=== PATIENT | female | born 1960 ===

== ENCOUNTER 2021-02-06 21:52 | Inpatient (IN) | payer MEDICARE, BC, SELFPAY ==
[2021-02-06 22:06] VITALS: BMI 22.0
[2021-02-06 22:52] VITALS: BP 134/84; PULSE 74; RESP 18; TEMP 37.2; O2SAT 96
[2021-02-06 23:54] VITALS: BP 139/75; PULSE 62; RESP 16; TEMP 36.3; O2SAT 96; BMI 18.9
--- NOTE | 2021-02-07 | ECG_ITS ---
Test Reason : new admit Blood Pressure : / mmHG Vent. Rate : 115 BPM Atrial Rate : 115 BPM P-R Int : 118 ms QRS Dur : 118 ms QT Int : 362 ms P-R-T Axes : 099 -40 154 degrees QTc Int : 500 ms Sinus tachycardia with Premature supraventricular complexes in a pattern of bigeminy Left axis deviation Pulmonary disease pattern Left ventricular hypertrophy with QRS widening and repolarization abnormality ( R in aVL , [place] product , Romhilt-Andrews ) Intra-ventricular conduction delay Abnormal ECG No previous ECGs available Referred By: Kimberly Casas Electronically Signed By:JESÚS ORELLANA MD
[2021-02-07 00:13] LABS: Glucose, Whole Blood 250 mg/dL (60-115)
--- NOTE | 2021-02-07 01:08 | PC.ADMIT ---
Pt is a 60 years old female transferred from [facility] with concerns of persecutory delusions, not eating or sleeping, and noncompliance with her medications. Diagnosis: Unspecified bipolar disorder. Pt is Covid negative, Tox negative. Pt denies HI/SI. reported having bowel discomfort earlier today. Presents slightly disoriented, flat affect with irritable mood. Speech is regular but response is delayed. Pt has a pacemaker placed in June 2019, DM2 with a admission POC:250.
[2021-02-07 06:00] VITALS: BP 131/76; PULSE 59; RESP 16; TEMP 36.4; O2SAT 97
[2021-02-07 06:46] LABS: Glucose, Whole Blood 135 mg/dL (60-115)
[2021-02-07 08:28] LABS: MANUAL DIFF FLAG NO
[2021-02-07 08:37] LABS: Basophils Percent Auto 0.3 % (0-2); Eosinophils Percent Auto 0.2 % (0-4); Hematocrit 32.6 % (37-47); Hemoglobin 11.4 g/dl (12.0-16.0); Imm Gran Abs Auto 0.02 X10*3/uL (0.00-0.03); Imm Gran Pct Auto 0.3 % (0.0-0.4); Lymphocytes Percent Auto 14.9 % (20-40); Mean Corpuscular Hemoglobin 31.1 pg (27.0-33.0); Mean Corpuscular Volume 88.8 fL (80-98); Mean Platelet Volume 10.2 fL (9.4-12.3); Monocytes Absolute Auto 0.5 X10*3/uL (0.1-1.2); Neutrophils Absolute Auto 5.1 X10*3/uL (2.0-8.3); Neutrophils Percent Auto 77.3 % (45-73); Platelet Count 203 X10*3/uL (160-400); Red Blood Count 3.67 X10*6/uL (4.20-5.50); Red Cell Distribution Width 11.8 % (11.0-16.0); White Blood Count 6.6 X10*3/uL (4.8-10.8)
[2021-02-07 08:54] LABS: Estimated Average Glucose 117 mg/dL; Hemoglobin A1c % 5.7 %
[2021-02-07 09:10] LABS: Alanine Aminotransferase 28 U/L (0-31); Albumin Level 4.1 g/dL (3.5-5.0); Alkaline Phosphatase 88 U/L (39-117); Anion Gap 20 (12-20); Aspartate Amino Transferase 44 U/L (5-31); Bilirubin Total 0.3 mg/dL (0.0-1.0); Blood Urea Nitrogen 108 mg/dL (9-16); Calcium 9.6 mg/dL (8.4-10.2); Carbon Dioxide 21 mmol/L (22-29); Chloride 104 mmol/L (96-108); Creatinine Clr Calc Pharmacy 13.3; Estimated Glomerular Filt Rate 13; Glucose Fasting 158 mg/dL (60-99); Potassium 4.6 mmol/L (3.3-5.1); Sodium 140 mmol/L (135-145); Total Protein 6.9 g/dL (6.5-8.0)
--- NOTE | 2021-02-07 09:18 | PC.NURSE ---
Critical value reported from lab of BUN 108, Dr Wili Betts aware via [employer]
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
[2021-02-07 17:25] VITALS: BP 145/98; PULSE 83; RESP 16; TEMP 36.9; O2SAT 98
[2021-02-07] MEDS: Sodium Chloride 0.45 % 1,000 ML 50 ML IVCONT (17:30)
[2021-02-07] MEDS: Milk of Magnesia 30 ML ORAL.SUSP PO (20:48)
[2021-02-08 06:00] VITALS: BP 141/80; PULSE 72; RESP 16; TEMP 35.9; O2SAT 98
[2021-02-08 06:40] LABS: Glucose, Whole Blood 150 mg/dL (60-115)
[2021-02-08 08:55] LABS: Anion Gap 13 (12-20); Blood Urea Nitrogen 92 mg/dL (9-16); Calcium 9.1 mg/dL (8.4-10.2); Carbon Dioxide 25 mmol/L (22-29); Chloride 103 mmol/L (96-108); Creatinine Clr Calc Pharmacy 15.5; Estimated Glomerular Filt Rate 15; Glucose Random 191 mg/dL (60-115); Potassium 3.9 mmol/L (3.3-5.1); Sodium 137 mmol/L (135-145)
[2021-02-08] MEDS: risperiDONE 1 MG TABLET PO (09:30)
--- NOTE | 2021-02-08 09:54 | P.PNPSI_ITS ---
Subjective Subjective Date of Service: 02/08/21 Reason For Visit: Depressed mood Interim History: pt seen on 02/08 pt remains with speech latency, sitting on edge of bed, not moving or talking much, only answering yes/no to questions. Pt agreed that it's hard to speak due to feeling confused in her mind and the distractions of auditory hallucinations. Agrees to titration of risperdal. Mental Status Exam Mental Status Exam Narrative: Pt is alert and oriented to self, place, situation; behavior is cooperative but disorganized; patient dressed in hospital gown; mood is described as depressed;? and affect flat; eye contact minimal; Speech with much latency; normal volume but monotone;? significant psychomotor retardation present; thought process is slowed and somewhat disorganized but can be goal oriented; Thought content vacuous; no SI/HI; is on tx; AH that are distracting; denies any SI/HI. Significant thought blocking and internal preoccupation; Patients insight and judgment impaired. Diagnostics Vital Signs (24Hr): Vital Signs - 24 hr 02/07/21 17:25 02/08/21 06:00 Temperature 98.5 F 96.7 F L Pulse Rate 83 72 Respiratory Rate 16 16 Blood Pressure 145/98 H 141/80 H Pulse Oximetry 98 98 Body Mass Index 18.9 Labs Results: 02/07/21 07:57 02/08/21 07:58 Labs: Laboratory Results - last 48 hr 02/07/21 02/07/21 02/07/21 00:06 06:40 07:57 WBC 6.6 RBC 3.67 L Hgb 11.4 L Hct 32.6 L MCV 88.8 MCH 31.1 MCHC 35.0 RDW 11.8 Plt Count 203 MPV 10.2 Immature Gran % (Auto) 0.3 Neut % (Auto) 77.3 H Lymph % (Auto) 14.9 L [place] % (Auto) 7.0 Eos % (Auto) 0.2 Baso % (Auto) 0.3 Lymph # (Auto) 1.0 L [place] # (Auto) 0.5 Eos # (Auto) 0.0 Baso # (Auto) 0.0 Abs Immat Gran (auto) 0.02 Absolute Neuts (auto) 5.1 Absolute Nucleated RBC 0.000 Nucleated RBC % (auto) 0.0 Sodium Potassium Chloride Carbon Dioxide Anion Gap BUN Creatinine Estim Creat Clear Calc Estimated GFR POC Glucose 250 H 135 H Random Glucose Fasting Glucose Estimat Average Glucose Hemoglobin A1c % Calcium Total Bilirubin AST ALT Alkaline Phosphatase Total Protein Albumin 02/07/21 02/07/21 02/08/21 07:57 07:57 06:35 WBC RBC Hgb Hct MCV MCH MCHC RDW Plt Count MPV Immature Gran % (Auto) Neut % (Auto) Lymph % (Auto) [place] % (Auto) Eos % (Auto) Baso % (Auto) Lymph # (Auto) [place] # (Auto) Eos # (Auto) Baso # (Auto) Abs Immat Gran (auto) Absolute Neuts (auto) Absolute Nucleated RBC Nucleated RBC % (auto) Sodium 140 Potassium 4.6 Chloride 104 Carbon Dioxide 21 L Anion Gap 20 BUN 108 H* Creatinine 3.66 H Estim Creat Clear Calc 13.3 Estimated GFR 13 POC Glucose 150 H Random Glucose Fasting Glucose 158 H Estimat Average Glucose 117 Hemoglobin A1c % 5.7 Calcium 9.6 Total Bilirubin 0.3 AST 44 H ALT 28 Alkaline Phosphatase 88 Total Protein 6.9 Albumin 4.1 02/08/21 07:58 WBC RBC Hgb Hct MCV MCH MCHC RDW Plt Count MPV Immature Gran % (Auto) Neut % (Auto) Lymph % (Auto) [place] % (Auto) Eos % (Auto) Baso % (Auto) Lymph # (Auto) [place] # (Auto) Eos # (Auto) Baso # (Auto) Abs Immat Gran (auto) Absolute Neuts (auto) Absolute Nucleated RBC Nucleated RBC % (auto) Sodium 137 Potassium 3.9 Chloride 103 Carbon Dioxide 25 Anion Gap 13 BUN 92 H* Creatinine 3.14 H Estim Creat Clear Calc 15.5 Estimated GFR 15 POC Glucose Random Glucose 191 H Fasting Glucose Estimat Average Glucose Hemoglobin A1c % Calcium 9.1 Total Bilirubin AST ALT Alkaline Phosphatase Total Protein Albumin Medications Medications Current Medications Acetaminophen (Acetaminophen 325 Mg Tablet) 650 mg PO Q6H PRN PRN Reason: Headache/Pain Mild Scale (1-3) Acetaminophen (Acetaminophen 325 Mg Tablet) 650 mg PO Q6H PRN PRN Reason: Headache/Pain Mild Scale (1-3) Al Hydroxide/Mg Hydroxide (Magnesium Hydrox/Alum Hydrox 30 Ml Oral.Susp) 30 ml PO Q6H PRN PRN Reason: Heartburn/Nausea Al Hydroxide/Mg Hydroxide (Magnesium Hydrox/Alum Hydrox 30 Ml Oral.Susp) 30 ml PO Q6H PRN PRN Reason: Heartburn/Nausea Hydroxyzine HCl (Hydroxyzine Hcl 25 Mg Tablet) 25 mg PO BEDTIME PRN PRN Reason: Anxiety Sodium Chloride () 1,000 mls @ 50 mls/hr IVCONT .Q20H [facility] Last Admin: 02/07/21 17:30 Dose: 50 mls/hr Documented by: Lorazepam (Lorazepam 1 Mg Tablet) 1 mg PO Q6H PRN PRN Reason: Anxiety Magnesium Hydroxide (Milk Of Magnesia 30 Ml Oral.Susp) 30 ml PO DAILY PRN PRN Reason: Constipation Last Admin: 02/07/21 20:48 Dose: 30 ml Documented by: Magnesium Hydroxide (Milk Of Magnesia 30 Ml Oral.Susp) 30 ml PO DAILY PRN PRN Reason: Constipation Risperidone (Risperidone 1 Mg Tablet) 1 mg PO BID [facility] Last Admin: 02/08/21 09:30 Dose: 1 mg Documented by: Trazodone HCl (Trazodone Hcl 50 Mg Tablet) 50 mg PO BEDTIME PRN PRN Reason: Insomnia Trazodone HCl (Trazodone Hcl 50 Mg Tablet) 50 mg PO BEDTIME PRN PRN Reason: Insomnia Allergies Allergies Allergy/AdvReac Type Severity Reaction Status Date / Time No Known Allergies Allergy Unverified 02/06/21 22:26 Assessment & Plan Assessment & Plan (1) Schizoaffective disorder, depressive type: Status: Acute Code(s): F25.1 - Schizoaffective disorder, depressive type (2) HLD (hyperlipidemia): Status: Acute Code(s): E78.5 - Hyperlipidemia, unspecified (3) Acute kidney injury superimposed on CKD: Status: Acute Code(s): N17.9 - Acute kidney failure, unspecified; N18.9 - Chronic kidney disease, unspecified (4) CKD stage 4 due to type 1 diabetes mellitus: Status: Acute Code(s): E10.22 - Type 1 diabetes mellitus with diabetic chronic kidney disease; N18.4 - Chronic kidney disease, stage 4 (severe) (5) Hypothyroidism: Status: Acute Code(s): E03.9 - Hypothyroidism, unspecified Assessment and Plan: IMPRESSION: pt is a poor historian pt is a 60 yo female with hx of bipolar, CKD4 preparing for dialysis who pre sents for worsening depression, disorganized behavior and poor attention to ADLS in face of going off medication. -pt with psychomotor retardation and disorganized speech and behavior, dehydrated from poor PO intake and needing IV fluids to help treat Acute on CKD4; -QT mildly prolonged -pt looks to be struggling with negative symptoms of psychosis; will tittrate rispderdal; however, will also keep catatonia in mind and careful monitor effect of antipsychotic. PLAN: CV IV fluids for acute on CKD4 Nephrology consulted; starting IV fluids Dr. 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 Kvng Garcia: -Levothyrozine 0.05mg 1 tab QD- last filled on 01/16 for 90 days -Carbidolol 6.25mg BID with meals- last filled on 01/16 for 90 days -Amlodipine Besylate 10mg QD- last filled 01/16 for 90 days -Glipizide 10mg QD- last filled 11/17 for [address] Isidra Santana: -Trazodone 50mg QHS- last filled on 01/10 for 90 days -Risperidone 4mg, ? tab QAM, 1 tab QHS- last filled 12/26/20 for 30 days -Oxcarbazepine 300mg 1 tab QAM; 2 tabs QHS- September 20 for 90 day supply I spent minutes with the patient and/or on the patient floor today, greater than?50% of which was spent counseling/coordinating care. Reason for contiued inpatient stay Substantial Risk for: inability to function
--- NOTE | 2021-02-08 15:45 | CONS_ITS ---
DATE OF SERVICE: 02/08/2021 REASON FOR CONSULTATION: I was called to see this patient to assist in the management of renal failure. HISTORY OF PRESENT ILLNESS: To summarize, melly is a 60-year-old woman with a history of bipolar disorder. She has advanced chronic kidney disease with a baseline creatinine around 3 mg/dL. She follows with my partner, Dr. Fuller in the outpatient setting. She comes to the psychiatric floor and was found to have significantly elevated BUN and creatinine of 108 and 3.66. This consult was requested for the management of the renal failure. She was seen by the medical team and started on half-normal saline at 50 mL/hour. There has been minimal improvement in the BUN and creatinine as of this morning. Melly has a history of longstanding diabetes mellitus, hypertension, and she does have some proteinuria and she probably has underlying diabetic nephropathy. In the past, the serological workup was negative. She was also on lithium in the past and there is a question of lithium nephropathy, although I do not have any urine studies to support this at this point. PAST MEDICAL HISTORY: Ongoing medical problems include history of hypertension, diabetes mellitus, bipolar disorder, chronic kidney disease stage 4, anemia Epogen in the outpatient setting and mild secondary hyperparathyroidism. ALLERGIES: NO KNOWN DRUG ALLERGIES HAVE BEEN DOCUMENTED. MEDICATIONS: Medication at the time of admission included Tylenol, hydroxyzine, carvedilol 6.25 b.i.d., amlodipine 10 mg, vitamin D 3000 units a day, glipizide 10 mg daily, levothyroxine, [place]-3, Trileptal, risperidone, and trazodone. REVIEW OF SYSTEMS: Obtained from the chart and partially from the patient. The patient is not a good historian. She denies any headache, nausea, or vomiting. No abdominal pain, diarrhea, constipation. No polyuria or polydipsia. No edema. No fever. All other systems were reviewed from the chart. PHYSICAL EXAMINATION: GENERAL: Melly is a 60-year-old woman. She has a flat affect, comfortable, not in any distress. NECK: Supple. No JVD. HEENT: Mucosa is dry. LUNGS: Air entry equal. No rales. HEART: S1, S2 heard. No gallop or rub. ABDOMEN: Soft, nontender. EXTREMITIES: No edema. No rash. No clubbing. VITAL SIGNS: Blood pressure was documented as 140/80, pulse 72, she is afebrile. LABORATORY DATA: On 02/07/2021, hemoglobin 11.4, platelets 203. BUN is 108, creatinine 3.66, potassium 4.6. As of 02/08, BUN and creatinine have decreased to 92 and 3.14, potassium of 3.9. Urine studies are not available. IMPRESSION: 60-year-old woman with stage 5 chronic kidney disease, superimposed on acute kidney injury. 1. Acute kidney injury is most likely related to hypoperfusion from volume depletion. There is no evidence of any obstruction and no active glomerulonephritis. 2. She has underlying chronic kidney disease stage 5, most likely due to diabetic nephropathy versus lithium nephropathy. Baseline BUN creatinine around 80 and 3.0 mg/dL. RECOMMENDATIONS: My recommendation will be to cautiously hydrate her for the next 24 to 48 hours. Keep intake more than the output. Avoid nephrotoxic agents and avoid hypotension. At present, there is no overt signs or symptoms of uremia and there is no absolute indication for dialysis yet. We will follow the renal function over the next several days and monitor her progress. She has mild anemia. There is no indication for Epogen at this time. We will continue to monitor that as well. We will follow closely with the team. Howard Galvan MD BPA/MODL / [id number]
[2021-02-08] MEDS: risperiDONE 2 MG TABLET PO (22:20)
[2021-02-08 22:24] VITALS: BP 133/74; PULSE 108; RESP 16; TEMP 36.9; O2SAT 97
[2021-02-08] MEDS: 0.9 % Sodium Chloride 1,000 ML 50 ML IVCONT (23:02)
[2021-02-08] MEDS: traZODone HCL 50 MG TABLET PO (23:04)
[2021-02-09 06:00] VITALS: BP 126/61; PULSE 54; RESP 18; TEMP 36.8; O2SAT 97
--- NOTE | 2021-02-09 08:00 | ECG_ITS ---
Test Reason : qtc check Blood Pressure : / mmHG Vent. Rate : 094 BPM Atrial Rate : 308 BPM P-R Int : 000 ms QRS Dur : 110 ms QT Int : 384 ms P-R-T Axes : 270 -25 118 degrees QTc Int : 480 ms Atrial flutter with variable A-V block Incomplete left bundle branch block Left ventricular hypertrophy with repolarization abnormality ( R in aVL , J Luis product ) Prolonged QT Abnormal ECG When compared with ECG of 07-FEB-2021 11:02, Atrial flutter has replaced Sinus rhythm Referred By: Wili Betts Electronically Signed By:JESÚS ORELLANA MD
--- NOTE | 2021-02-09 09:11 | PM.PNNEP ---
Subjective Subjective Date of Service: 02/26/21 Interval history: Chart reviewed BP noted No labs today D/w Physical Exam Vital Signs: Vital Signs: Last Vital Signs Temp 98.3 F 02/09/21 06:00 Pulse 54 02/09/21 06:00 Resp 18 02/09/21 06:00 BP 126/61 02/09/21 06:00 Pulse Ox 97 02/09/21 06:00 Body Mass Index 18.9 Objective Data Labs CBC & Chem 7: 02/07/21 07:57 02/08/21 07:58 Procedures Date of Service Date of Service: 02/09/21 Assessment & Plan Assessment and plan (1) Acute kidney injury superimposed on CKD: Status: Acute Assessment and Plan: SUZIE on CKD Cr is trending down Check Cr tomorrow Out patient meds as per my office record: Coreg 6.26 BID Amlodipine 10 mg QD Vit D 1000 U QD Glipizide 10 mg QD LEvothyroxine 50 mcg QD Oxcarbazene/Risperodone/Trazadone BP seems acceptable. Hold Coreg /Amlodipine today and watch BP will address Levothyroxine adn Glipizide Time Spent With Patient Time: Total time spent is greater than 50% in coordination of care (as documented) at patient's floor/unit and/or counseling patient: Time with patient: less than 15 minutes
[2021-02-09] MEDS: risperiDONE 1 MG TABLET PO (10:04)
--- NOTE | 2021-02-09 13:45 | P.PNPSI_ITS ---
Subjective Subjective Date of Service: 02/09/21 Reason For Visit: Depressed mood Interim History: pt seen on 02/09 pt brighter affect today, smiling at times, with less speech latency and talking more spontaneously. She says she feels more like herself today; denies AH and feels less confused. Agrees to increasing Rispderdal says came to hospital since she stopped taking her meds; she reports someone was coming into her house, removed her meds and replaced with fakes so she stopped taking. Mental Status Exam Mental Status Exam Narrative: Pt is alert and oriented to self, place, situation; behavior is cooperative, more organized; patient dressed casual cloths, appropriate; mood is a little better; ? and affect brighter; eye contact adequate; Speech still latent but less so; normal volume, still monotone;? still with psychomotor retardation but less; thought process is slowed but more disorganized and goal oriented; Thought content vacuous; no SI/HI; is on tx; still with delusional content; denies any SI/HI. Still with thought blocking and internal preoccupation but much less so; Patients insight and judgment impaired but improving. Diagnostics Vital Signs (24Hr): Vital Signs - 24 hr 02/08/21 22:24 02/09/21 06:00 Temperature 98.5 F 98.3 F Pulse Rate 108 H 54 Respiratory Rate 16 18 Blood Pressure 133/74 126/61 Pulse Oximetry 97 97 Body Mass Index 18.9 Labs Results: 02/07/21 07:57 02/08/21 07:58 Labs: Laboratory Results - last 48 hr 02/08/21 02/08/21 06:35 07:58 Sodium 137 Potassium 3.9 Chloride 103 Carbon Dioxide 25 Anion Gap 13 BUN 92 H* Creatinine 3.14 H Estim Creat Clear Calc 15.5 Estimated GFR 15 POC Glucose 150 H Random Glucose 191 H Calcium 9.1 Medications Medications Current Medications Acetaminophen (Acetaminophen 325 Mg Tablet) 650 mg PO Q6H PRN PRN Reason: Headache/Pain Mild Scale (1-3) Al Hydroxide/Mg Hydroxide (Magnesium Hydrox/Alum Hydrox 30 Ml Oral.Susp) 30 ml PO Q6H PRN PRN Reason: Heartburn/Nausea Sodium Chloride (Ns) 1,000 mls @ 50 mls/hr IVCONT .Q20H [facility] Stop: 02/09/21 21:00 Last Admin: 02/08/21 23:02 Dose: 50 mls/hr Documented by: Lorazepam (Lorazepam 1 Mg Tablet) 1 mg PO Q6H PRN PRN Reason: Anxiety Magnesium Hydroxide (Milk Of Magnesia 30 Ml Oral.Susp) 30 ml PO DAILY PRN PRN Reason: Constipation Last Admin: 02/07/21 20:48 Dose: 30 ml Documented by: Risperidone (Risperidone 1 Mg Tablet) 1 mg PO DAILY [facility] Last Admin: 02/09/21 10:04 Dose: 1 mg Documented by: Risperidone (Risperidone 2 Mg Tablet) 2 mg PO BEDTIME [facility] Last Admin: 02/08/21 22:20 Dose: 2 mg Documented by: Trazodone HCl (Trazodone Hcl 50 Mg Tablet) 50 mg PO BEDTIME PRN PRN Reason: Insomnia Last Admin: 02/08/21 23:04 Dose: 50 mg Documented by: Allergies Allergies Allergy/AdvReac Type Severity Reaction Status Date / Time No Known Allergies Allergy Unverified 02/06/21 22:26 Assessment & Plan Assessment & Plan (1) Schizoaffective disorder, depressive type: Status: Acute Code(s): F25.1 - Schizoaffective disorder, depressive type (2) HLD (hyperlipidemia): Status: Acute Code(s): E78.5 - Hyperlipidemia, unspecified (3) Acute kidney injury superimposed on CKD: Status: Acute Code(s): N17.9 - Acute kidney failure, unspecified; N18.9 - Chronic kidney disease, unspecified (4) CKD stage 4 due to type 1 diabetes mellitus: Status: Acute Code(s): E10.22 - Type 1 diabetes mellitus with diabetic chronic kidney disease; N18.4 - Chronic kidney disease, stage 4 (severe) (5) Hypothyroidism: Status: Acute Code(s): E03.9 - Hypothyroidism, unspecified Assessment and Plan: IMPRESSION: pt is a poor historian pt is a 60 yo female with hx of bipolar, CKD4 preparing for dialysis who presents for worsening depression, disorganized behavior and poor attention to ADLS in face of going off medication. -pt with psychomotor retardation and disorganized speech and behavior, dehydrated from poor PO intake and needing IV fluids to help treat Acute on CKD4; bUN/Cr returned to nearly baseline resolved with fluids -QT mildly prolonged at first; subsequent EKG shows returned to [facility] pt improving with titration of Risperdal; more spontaneous, organized speech; more organized behavior; AH resolved PLAN: CV increased Risperdal to 4mg at bed continue risperdal 1mg AM was on IV fluids for acute on CKD4 which resolved; Nephrology consulted agrees pt no longer needs IV; encourage PO fluids Dr. 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 Kvng Garcia: -Levothyrozine 0.05mg 1 tab QD- last filled on 01/16 for 90 days -Carbidolol 6.25mg BID with meals- last filled on 01/16 for 90 days -Amlodipine Besylate 10mg QD- last filled 01/16 for 90 days -Glipizide 10mg QD- last filled 11/17 for [address] Isidra Santana: -Trazodone 50mg QHS- last filled on 01/10 for 90 days -Risperidone 4mg, ? tab QAM, 1 tab QHS- last filled 12/26/20 for 30 days -Oxcarbazepine 300mg 1 tab QAM; 2 tabs QHS- September 20 for 90 day supply I spent minutes with the patient and/or on the patient floor today, greater than?50% of which was spent counseling/coordinating care. Reason for contiued inpatient stay Substantial Risk for: inability to function
[2021-02-09 18:00] VITALS: BP 115/74; PULSE 65; RESP 18; TEMP 36.1; O2SAT 98
[2021-02-09] MEDS: risperiDONE 2 MG TABLET 4 MG PO (22:39)
[2021-02-10 06:00] VITALS: BP 141/66; PULSE 77; RESP 16; TEMP 36.7; O2SAT 98
[2021-02-10 06:20] LABS: Glucose, Whole Blood 150 mg/dL (60-115)
[2021-02-10] MEDS: risperiDONE 1 MG TABLET PO (08:44)
[2021-02-10 17:13] VITALS: BP 143/92; PULSE 136; RESP 16; TEMP 37.1; O2SAT 98
[2021-02-10] MEDS: LORazepam 1 MG TABLET PO ×2 (17:59→21:28)
--- NOTE | 2021-02-10 20:08 | P.PNPSI_ITS ---
Subjective Subjective Date of Service: 02/10/21 Reason For Visit: Depressed mood Subjective Notes: Conditional Voluntary Medical Problems Affecting Mental Status: No Interim History: Thu was extremely guarded and disorganized. She tends to isolate in her room. Medication Compliance: Yes Side effects from medications: No Attending Groups: No Review of Systems Acute medical concerns: No Medical Review of Systems: unchanged Mental Status Exam Mental Status Exam Narrative: Pt is alert and oriented to self, place, situation; behavior is cooperative, more organized; patient dressed casual cloths, appropriate; mood is a little better; ? and affect brighter; eye contact adequate; Speech still la tent but less so; normal volume, still monotone;? still with psychomotor retardation but less; thought process is slowed but more disorganized and goal oriented; Thought content vacuous; no SI/HI; is on tx; still with delusional content; denies any SI/HI. Still with thought blocking and internal pre occupation but much less so; Patients insight and judgment impaired but improving. Diagnostics Vital Signs (24Hr): Vital Signs - 24 hr 02/10/21 06:00 02/10/21 17:13 Temperature 98.1 F 98.7 F Pulse Rate 77 136 H Respiratory Rate 16 16 Blood Pressure 141/66 H 143/92 H Pulse Oximetry 98 98 Body Mass Index 18.9 Labs Results: 02/07/21 07:57 02/08/21 07:58 Labs: Laboratory Results - last 48 hr 02/10/21 06:10 POC Glucose 150 H Medications Medications Current Medications Acetaminophen (Acetaminophen 325 Mg Tablet) 650 mg PO Q6H PRN PRN Reason: Headache/Pain Mild Scale (1-3) Al Hydroxide/Mg Hydroxide (Magnesium Hydrox/Alum Hydrox 30 Ml Oral.Susp) 30 ml PO Q6H PRN PRN Reason: Heartburn/Nausea Lorazepam (Lorazepam 1 Mg Tablet) 1 mg PO Q6H PRN PRN Reason: Anxiety Last Admin: 02/10/21 17:59 Dose: 1 mg Documented by: Magnesium Hydroxide (Milk Of Magnesia 30 Ml Oral.Susp) 30 ml PO DAILY PRN PRN Reason: Constipation Last Admin: 02/07/21 20:48 Dose: 30 ml Documented by: Risperidone (Risperidone 1 Mg Tablet) 1 mg PO DAILY [facility] Last Admin: 02/10/21 08:44 Dose: 1 mg Documented by: Risperidone (Risperidone 2 Mg Tablet) 4 mg PO BEDTIME [facility] Last Admin: 02/09/21 22:39 Dose: 4 mg Documented by: Trazodone HCl (Trazodone Hcl 50 Mg Tablet) 50 mg PO BEDTIME PRN PRN Reason: Insomnia Last Admin: 02/08/21 23:04 Dose: 50 mg Documented by: Allergies Allergies Allergy/AdvReac Type Severity Reaction Status Date / Time No Known Allergies Allergy Unverified 02/06/21 22:26 Assessment & Plan Assessment & Plan (1) Schizoaffective disorder, depressive type: Status: Acute Code(s): F25.1 - Schizoaffective disorder, depressive type (2) HLD (hyperlipidemia): Status: Acute Code(s): E78.5 - Hyperlipidemia, unspecified (3) Acute kidney injury superimposed on CKD: Status: Acute Code(s): N17.9 - Acute kidney failure, unspecified; N18.9 - Chronic kidney disease, unspecified (4) CKD stage 4 due to type 1 diabetes mellitus: Status: Acute Code(s): E10.22 - Type 1 diabetes mellitus with diabetic chronic kidney disease; N18.4 - Chronic kidney disease, stage 4 (severe) (5) Hypothyroidism: Status: Acute Code(s): E03.9 - Hypothyroidism, unspecified Assessment and Plan: IMPRESSION: pt is a poor historian pt is a 60 yo female with hx of bipolar, CKD4 preparing for dialysis who presents for worsening depression, disorganized behavior and poor attention to ADLS in face of going off medication. -pt with psychomotor retardation and disorganized speech and behavior, dehydrated from poor PO intake and needing IV fluids to help treat Acute on CKD4; bUN/Cr returned to nearly baseline resolved with fluids -QT mildly prolonged at first; subsequent EKG shows returned to [facility] pt improving with titration of Risperdal; more spontaneous, organized speech; more organized behavior; AH resolved PLAN: CV increased Risperdal to 4mg at bed continue risperdal 1mg AM was on IV fluids for acute on CKD4 which resolved; Nephrology consulted agrees pt no longer needs IV; encourage PO fluids Dr. 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 Kvng Garcia: -Levothyrozine 0.05mg 1 tab QD- last filled on 01/16 for 90 days -Carbidolol 6.25mg BID with meals- last filled on 01/16 for 90 days -Amlodipine Besylate 10mg QD- last filled 01/16 for 90 days -Glipizide 10mg QD- last filled 11/17 for [address] Isidra Santana: -Trazodone 50mg QHS- last filled on 01/10 for 90 days -Risperidone 4mg, ? tab QAM, 1 tab QHS- last filled 12/26/20 for 30 days -Oxcarbazepine 300mg 1 tab QAM; 2 tabs QHS- September 20 for 90 day supply 02/10/21: No change to the above plan I spent ___10___ minutes with the patient and/or on the patient floor today, greater than?50% of which was spent counseling/coordinating care. Patient educated on: medication risk/benefits Informed Consent: further education needed Reason for contiued inpatient stay Substantial Risk for: rapid decompensation
[2021-02-10 20:45] VITALS: PULSE 145
[2021-02-10] MEDS: risperiDONE 2 MG TABLET 4 MG PO (21:28)
[2021-02-11 00:22] LABS: Glucose, Whole Blood 295 mg/dL (60-115)
--- NOTE | 2021-08-29 11:54 | PM.PSYDC ---
DS: Providers Provider Date of Service: 02/11/21 Date of admission: 02/06/21 21:52 Date of discharge: 02/11/21 Primary care physician: Kvng Garcia MD Consults: 02/06/21 22:27 Consult to Hospitalist Routine Consulting Provider: Hospitalist Reason For Exam: New admission 02/07/21 14:42 Consult to Nephrology Routine Consulting Provider: Howard Galvan Reason for consultation: acute on chronic (samantha on stage 4 CKD) Attending physician on discharge: Kimberly Casas DS: Diagnosis Discharge Diagnosis (1) Acute kidney injury superimposed on CKD: Status: Acute DS: Medications Discharge Medications Home Medications: Previous Rx's Medication Instructions Recorded amlodipine 10 mg tablet 10 mg PO DAILY 30 Days #30 tab 02/22/21 ammonium lactate 12 % lotion 1 appl TOPICAL BID PRN #0 g 02/22/21 apixaban 5 mg tablet (Eliquis) 5 mg PO BID 30 Days #60 tab 02/22/21 carvedilol 6.25 mg tablet 6.25 mg PO BID 30 Days #60 tab 02/22/21 diltiazem HCl 120 mg 120 mg PO DAILY 30 Days #30 cap 02/22/21 capsule,extended release 24 hr (Cardizem CD) glipizide 10 mg tablet 10 mg PO DAILY 30 Days #30 tab 02/22/21 levothyroxine 50 mcg tablet 50 mcg PO DAILY 30 Days #30 tab 02/22/21 oxcarbazepine 300 mg tablet See Rx Instructions .ROUTE 02/22/21 .COMPLEX 30 Days #90 tab risperidone 2 mg tablet See Rx Instructions .ROUTE 02/22/21 .COMPLEX 30 Days #90 tab trazodone 50 mg tablet 50 mg PO BEDTIME PRN 30 Days #30 02/22/21 tab Mental Status Exam Mental Status Exam Narrative: Pt is alert to person, place and situation; she still mostly uses few words but also speaks in sentences; she is cooperative; dressed appropriately in casual cloths, with adequate hygiene;? mood is alright; affect remains blunted mostly but she smiles too and laughs appropriately; adequate eye contact;? Speech latency remains which she says is her baseline; still speaks at a slowed rate though normal volume; no psychomotor retardation; thought process goal oriented, logical but concrete; Thoughts on whatever is asked of her; no delusional or paranoid thinking expressed; denies any SI/HI. denies AH; Patients insight and judgment appear intact. DS: Summary Hospital Course Hospital Course: Individual had been admitted with acute symptoms of schizoaffective disorder. See admission summary. On the day of DC she had complained of not feeling well. She had HR 140. EKG showed atrial flutter. As a result she was sent to telemetry for monitoring and stabilization. Status at Discharge Cognitive/behavioral status at discharge: No acute risk of harm at the time of DC Functional status at discharge: independent ambulation Overall status at discharge: patient is not back to baseline Time Spent with Patient Time attestation: Total time spent providing and/or coordinating discharge services: Time spent: Less than 30 minutes Discharge Plan Discharge Anticipated Discharge Date/Time: 02/10/21 23:44 Patient Disposition: Xfer [facility] Discharge Diagnosis: SVT Referrals: Kvng Garcia MD [Primary Care Provider] - 1 Week Discharge Medications: No Action diltiazem HCl [Cardizem CD] 120 mg Capsule,Extended Release 24hr 120 mg PO DAILY 30 Days Qty: 30 0RF Protocol: Hold for SBP/HR < HOLD for SBP < : 90 HOLD for HR < : 60 oxcarbazepine 300 mg Tablet See Rx Instructions .ROUTE .COMPLEX 30 Days Qty: 90 0RF Rx Instructions: take 1 tab in the morning and take 2 tabs at bedtime ammonium lactate 12 % Lotion 1 appl topical BID PRN (Reason: Dry Skin) Qty: 0 0RF Protocol: Apply to: Apply to: both feet carvedilol 6.25 mg tablet 6.25 mg PO BID 30 Days Qty: 60 0RF trazodone 50 mg tablet 50 mg PO BEDTIME PRN (Reason: insomnia) 30 Days Qty: 30 0RF glipizide 10 mg tablet 10 mg PO DAILY 30 Days Qty: 30 0RF risperidone 2 mg Tablet See Rx Instructions .ROUTE .COMPLEX 30 Days Qty: 90 0RF Rx Instructions: take one tab every morning and take 2 tabs at bedtime amlodipine 10 mg tablet 10 mg PO DAILY 30 Days Qty: 30 0RF levothyroxine 50 mcg tablet 50 mcg PO DAILY 30 Days Qty: 30 0RF Eliquis 5 mg Tablet 5 mg PO BID 30 Days Qty: 60 0RF Discharge Orders: Discharge Order (Routine); Ordered 02/10/21 Ordered By: Kimberly Casas Diet: diabetic diet Activity on Discharge: As tolerated Stand Alone Forms: Patient Portal Discharge page Care Plan Goals: Stabilization of HR Health Concerns: SVT Plan of Treatment: Transfer to Medicine Assessment: HR needs to be stabilized Discharge Date/Time: 02/11/21 00:10
== END 2021-02-11 00:10 | disposition short-term general hospital (02) | DRG 885 ==
PROVIDERS: Internal Medicine; Psychiatry & Neurology Psychiatry; Admitting Provider Psychiatry & Neurology Psychiatry; PCP Internal Medicine; Visit Provider Psychiatry & Neurology Psychiatry
DX: F25.1 Schizoaffective disorder, depressive type (principal); N17.9 Acute kidney failure, unspecified; N18.4 Chronic kidney disease, stage 4 (severe); N25.81 Secondary hyperparathyroidism of renal origin; E78.5 Hyperlipidemia, unspecified; E86.9 Volume depletion, unspecified; N14.1 Nephropathy induced by other drugs, medicaments and biological substances; E03.9 Hypothyroidism, unspecified; I12.9 Hypertensive chronic kidney disease with stage 1 through stage 4 chronic kidney disease, or unspecified chronic kidney disease; D63.1 Anemia in chronic kidney disease; E11.22 Type 2 diabetes mellitus with diabetic chronic kidney disease; E11.21 Type 2 diabetes mellitus with diabetic nephropathy; Z91.14 Patient's other noncompliance with medication regimen
CPT/HCPCS: 36415; 80048; 80053; 82947; 83036; 85025; 90686; 93005

== ENCOUNTER 2021-02-11 00:26 | Inpatient (IN) | payer MEDICARE, BC, SELFPAY ==
--- NOTE | 2021-02-10 23:08 | ECG_ITS ---
Test Reason : AFLUTTER Blood Pressure : / mmHG Vent. Rate : 147 BPM Atrial Rate : 144 BPM P-R Int : 000 ms QRS Dur : 110 ms QT Int : 350 ms P-R-T Axes : 000 -19 127 degrees QTc Int : 547 ms Supraventricular tachycardia Incomplete left bundle branch block Left ventricular hypertrophy with repolarization abnormality Abnormal ECG When compared with ECG of 09-FEB-2021 09:57, Supraventricular tachycardia has replaced Atrial flutter Vent. rate has increased BY 53 BPM Referred By: Theodore Silveira Electronically Signed By:JESÚS ORELLANA MD
[2021-02-11] VITALS (13 sets, daily range): BP systolic 106–156; BP diastolic 61–80; PULSE 75–149; RESP 17–20; TEMP 35.5–36.9; O2SAT 96–99; BMI 20.6
--- NOTE | ~2021-02-11 | XR_ITS ---
EXAMINATION: XR CHEST CLINICAL INFORMATION: Atrial flutter COMPARISON: None TECHNIQUE: Frontal view of the chest was obtained. FINDINGS: Left-sided pacemaker lead tips overlie the right atrium and right ventricle. Lung volumes are symmetric. No focal consolidation is seen. No evidence of pneumothorax, pleural effusion, or pulmonary edema. Cardiac size is within normal limits. Calcification is present at the aortic arch. No acute osseous findings are seen. XR/XR chest 1V IMPRESSION: No acute cardiopulmonary findings.
[2021-02-11] MEDS: Metoprolol Tartrate 5 MG/5 ML VIAL IVPUSH (00:30)
--- NOTE | 2021-02-11 00:37 | ECG_ITS ---
Test Reason : A flutter Blood Pressure : / mmHG Vent. Rate : 106 BPM Atrial Rate : 286 BPM P-R Int : 000 ms QRS Dur : 108 ms QT Int : 326 ms P-R-T Axes : 066 -24 119 degrees QTc Int : 433 ms Atrial flutter with variable A-V block Left ventricular hypertrophy with repolarization abnormality Abnormal ECG Rhythm shows atrial flutter with variable block Supraventricular tachycardia is no longer Present Referred By: Theodore Silveira Electronically Signed By:JESÚS ORELLANA MD
--- NOTE | 2021-02-11 01:08 | PC.NURSE ---
[facility] with heart rate sustaining 140. She is alert and orients, no complaints of chest pain or shortness of breath. Vitals :97.6 128/80 o298% room air, POC 295. MD notified for new orders, verbal telephone ordered taken to give 5mg metoprolol IVP and have labs drawn. Pt reports having a heart attack in july of this year which resulted in a pacemaker being implanted. IV placed, 20g right wrist. EKG ordered - results placed in chart. on her way to bedside. Will continue to closely monitor.
[2021-02-11 01:18] LABS: Troponin-I High Sensitivity 88.7 ng/L (<3.5-17.0)
[2021-02-11 04:11] LABS: MANUAL DIFF FLAG NO
[2021-02-11 04:20] LABS: Basophils Percent Auto 0.2 % (0-2); Eosinophils Absolute Auto 0.1 X10*3/uL (0.0-0.4); Eosinophils Percent Auto 0.8 % (0-4); Hemoglobin 9.1 g/dl (12.0-16.0); Imm Gran Abs Auto 0.03 X10*3/uL (0.00-0.03); Imm Gran Pct Auto 0.5 % (0.0-0.4); Lymphocytes Absolute Auto 0.7 X10*3/uL (1.2-4.9); Lymphocytes Percent Auto 12.3 % (20-40); Mean Corpuscular Volume 91.5 fL (80-98); Mean Platelet Volume 10.4 fL (9.4-12.3); Monocytes Absolute Auto 0.5 X10*3/uL (0.1-1.2); Monocytes Percent Auto 7.8 % (2-11); Neutrophils Absolute Auto 4.7 X10*3/uL (2.0-8.3); Neutrophils Percent Auto 78.4 % (45-73); Platelet Count 144 X10*3/uL (160-400); Red Blood Count 2.84 X10*6/uL (4.20-5.50); Red Cell Distribution Width 11.9 % (11.0-16.0)
[2021-02-11] MEDS: dilTIAZem HCL 125 MG in 0.9 % Sodium Chloride 100 ML 10 MG IVCONT ×2 (04:25→18:53)
[2021-02-11 04:26] LABS: Anion Gap 15 (12-20); Blood Urea Nitrogen 69 mg/dL (9-16); Calcium 8.7 mg/dL (8.4-10.2); Carbon Dioxide 22 mmol/L (22-29); Chloride 100 mmol/L (96-108); Creatinine Clr Calc Pharmacy 22.4; Estimated Glomerular Filt Rate 21; Glucose Random 243 mg/dL (60-115); Potassium 4.3 mmol/L (3.3-5.1); Sodium 133 mmol/L (135-145)
[2021-02-11 04:44] LABS: Troponin-I High Sensitivity 95.7 ng/L (<3.5-17.0)
--- NOTE | 2021-02-11 06:28 | PM.IMHP ---
History of Present Illness Date of Service: 02/11/21 Chief Complaint: Palpitations This is a 6-year-old female with past medical history of diabetes, hyperlipidemia, CKD stage 4, HTN, depression, schizoaffective disorder, HLD who was admitted to [facility] for of her schizoaffective disorder. I received a call this evening from psychiatrist that patient EKG has been abnormal UA heart rate in the 140s as well as showing atrial flutter. Patient reports that she has never had history of AFib or a flutter, on review of system she reports palpitations, no chest pain, no shortness of breath, no abdominal pain nausea or vomiting, no diarrhea constipation, no urinary symptoms and no lower extremity edema. Vitals Were taken and show a temp of 97.6?, heart rate of 143, respiratory rate of 18, blood pressure 128/80, satting 90% on room air Labs are significant for WBC count of 6.0, hemoglobin of 9.1, sodium of 133, BUN of 69, creatinine of 2.37 which improved from her admission creatinine of 3.66, and troponin of 45. EKG shows a flutter with variable AV block, left ventricular hypertrophy, has nonspecific ST T wave changes Patient was transferred to the floor for further management Review of Systems Review of Systems: Yes all other systems are reviewed and are negative [facility] Medical History Cervical cancer Diabetes type 2, controlled HLD (hyperlipidemia) Pacemaker Past heart attack Stage 4 chronic kidney disease Family History (Updated 02/11/21 @ 06:36 by Toya eLrner MD) Mother Diabetes Pertinent family history: Present history except diabetes in mother Social History Household Members: None Housing: House Housing Other:: 2 family house Do you presently have visiting nurse or other home services: No (previously had visiting services) Patient Tobacco Use Status: Former Tobacco user Quit Date: 2019 Tobacco use type: Cigarette Years Smoked: 30 e-Cigarette/Vaping Use: Never Used Second Hand Smoke Exposure: No Use of substances other than those prescribed or required for medical reasons: No Substance Use Type: Marijuana, Opiates, Prescription Drugs and Caffiene Have you been hit, kicked, punched, or otherwise hurt by someone within the past year? If so, by whom?: No Do you feel safe in your current relationship?: No Current Relationship Is there a partner from a previous relationship who is making you feel unsafe now?: No Are you made to feel afraid or neglected: No Advance Directives: No Advance Directives Information Provided: No Do you have thoughts of harming others: None Do you have a plan to hurt others: No Plan Recently lost weight without trying: No How much weight loss: Not applicable Eating poorly because of decreased appetite: No Nutrition screen score: 0 Nutrition Risks: No Nutritional Risk Patient : No : No Poor oral hygiene: No service: No Sexual orientation: Straight/Heterosexual Meds Allergies Allergy/AdvReac Type Severity Reaction Status Date / Time No Known Allergies Allergy Unverified 02/06/21 22:26 Active Medications: Current Medications Acetaminophen (Acetaminophen 325 Mg Tablet) 650 mg PO Q6H PRN PRN Reason: Pain, Mild (Pain Scale 1-3) Docusate Sodium (Docusate Sodium 100 Mg Capsule) 100 mg PO DAILY PRN PRN Reason: Constipation Diltiazem HCl 125 mg/ Sodium (Chloride) 125 mls @ 0 mls/hr IVCONT .Q0M [facility]; Protocol Last Titration: 02/11/21 06:19 Dose: 5 mg/hr, 5 mls/hr Documented by: Metoprolol Tartrate (Metoprolol Tartrate 5 Mg/5 Ml Vial) 5 mg IVPUSH Q6H PRN PRN Reason: HR>120 Last Admin: 02/11/21 00:30 Dose: 5 mg Documented by: Ondansetron HCl (Ondansetron Hcl 4 Mg/2 Ml Vial) 4 mg IVPUSH Q8H PRN PRN Reason: Nausea and Vomiting Sodium Chloride (0.9 % Sodium Chloride Flush 3 Ml Syringe) 3 ml IVFLUSH QSHIFT [facility] Physical Exam Vital Signs and Narrative: Vital Signs: Last Vital Signs Temp 97.9 F 02/11/21 04:00 Pulse 149 H 02/11/21 04:25 Resp 17 02/11/21 04:00 BP 113/74 02/11/21 04:25 Pulse Ox 99 02/11/21 04:00 Body Mass Index 20.6 Const: General: cooperative and no acute distress Orientation/consciousness: patient oriented x3 Eyes: General: appearance normal, both eyes and all related structures Pupils: Equal, round and reactive pupils present Resp: Effort & Inspection: normal respiratory effort Auscultation: clear to auscultation bilaterally Cardio: Other: Irregular rate and rhythm Tachycardic GI: Palpation (GI): Soft to palpation Auscultation: normal bowel sounds Skin: General skin exam: no rashes or lesions noted Neuro: General: patient oriented x3 Cranial nerves: Yes Equal, round and reactive pupils present Cognition (Neuro): normal cognition Extrem: General: Yes normal to inspection and Yes no pedal edema Results Labs CBC and Chem 7: 02/11/21 04:06 02/11/21 04:06 Labs: Laboratory Results - last 24 hr 02/11/21 02/11/21 02/11/21 00:49 04:06 04:06 MCV 91.5 MCH 32.0 MCHC 35.0 RDW 11.9 Plt Count 144 L D MPV 10.4 Immature Gran % (Auto) 0.5 H Neut % (Auto) 78.4 H Lymph % (Auto) 12.3 L [place] % (Auto) 7.8 Eos % (Auto) 0.8 Baso % (Auto) 0.2 Lymph # (Auto) 0.7 L [place] # (Auto) 0.5 Eos # (Auto) 0.1 Baso # (Auto) 0.0 Abs Immat Gran (auto) 0.03 Absolute Neuts (auto) 4.7 Absolute Nucleated RBC 0.000 Nucleated RBC % (auto) 0.0 Anion Gap 15 Estim Creat Clear Calc 22.4 Estimated GFR 21 Random Glucose 243 H Calcium 8.7 Troponin I High Sens 88.7 H* 02/11/21 04:06 MCV MCH MCHC RDW Plt Count MPV Immature Gran % (Auto) Neut % (Auto) Lymph % (Auto) [place] % (Auto) Eos % (Auto) Baso % (Auto) Lymph # (Auto) [place] # (Auto) Eos # (Auto) Baso # (Auto) Abs Immat Gran (auto) Absolute Neuts (auto) Absolute Nucleated RBC Nucleated RBC % (auto) Anion Gap Estim Creat Clear Calc Estimated GFR Random Glucose Calcium Troponin I High Sens 95.7 H* Imaging Radiologist's Impressions: Impressions Chest X-Ray 02/11/21 00:37 IMPRESSION: No acute cardiopulmonary findings. Assessment and Plan (1) New onset atrial flutter: Status: Acute (2) Elevated troponin: Status: Acute 60-year-old female with past medical history of diabetes, hypertension, who was being managed at [facility] for schizoaffective disorder developed a flutter with rapid ventricular response and will be admitted to the floor for further management # new onset a flutter - unclear etiology at this time - denies any chest pain, has palpitations - patient given 1 dose of IV Lopressor with minimal response, was started on diltiazem ggt and titrate as tolerated - will rule out infection by obtaining UA, chest x-ray - will obtain echocardiogram - cardiology consult # elevated troponin - this likely type 2 in the setting atrial flutter with RVR - EKG has nonspecific ST T-wave abnormalities - discussed with Cardiology - at this time will continue to monitor on telemetry # diabetes - start on low-dose sliding scale insulin - diabetic diet # schizoaffective disorder - will consult psychiatry for continued management # hypertension - stable - pending patient's med reviewed- will resume her home medications DVT prophylaxis: Lovenox Quality Stroke Does the patient have a stroke diagnosis?: No VTE Prior VTE?: No VTE Risk Level:: Medical - moderate - high VTE Device Contraindication: Treatment Not Indicated VTE Drug Contraindication: N/A - Med Ordered
[2021-02-11 07:15] LABS: Glucose, Whole Blood 219 mg/dL (60-115)
[2021-02-11] MEDS: Insulin Lispro 100 UNIT/ML 3 ML VIAL SUBCUT ×4 (07:45→21:52)
[2021-02-11 09:27] LABS: Thyroid Stimulating Hormone 2.91 uIU/mL (0.32-4.0)
--- NOTE | 2021-02-11 10:45 | P.CONCA_ITS ---
History of Present Illness History of Present Illness Date of Service: 02/11/21 Chief complaint: New Onset A flutter Narrative: This is a cardiology consultation regarding atrial flutter. Listed to have various comorbidities including diabetes, CKD, hypertension, schizoaffective disorder among others. She has been transferred from psychiatric unit because of elevated heart rate. EKG had shown atrial flutter. Patient herself is not able to give much information. She vaguely remembers going to [facility] for a pacemaker but again cannot give any clear information whatsoever. Also denies any clear symptoms like palpitations or anginal chest pains are infected cardiac symptoms as well. She is in chronic Cardizem drip since arrival. Review of Systems Review of Systems: Yes all other systems are reviewed and are negative Cardiovascular: Cardiovascular: Reports as per HPI, Reports no additional cardiovascular complaints, Denies acrocyanosis, Denies cool extremities, Denies painful fingertips, Denies chest pain, Denies chest pain at rest, Denies diaphoresis, Denies syncope, Denies irregular heart rhythm, Denies claudication, Denies leg edema, Denies lightheadedness, Denies palpitations and Denies dyspnea Respiratory: Respiratory: Denies dyspnea Neurologic: Denies syncope Endocrine: Endocrine: Denies palpitations PMFSH Past Medical History Medical History Cervical cancer Diabetes type 2, controlled HLD (hyperlipidemia) Pacemaker Past heart attack Stage 4 chronic kidney disease Family History Family History (Updated 02/11/21 @ 06:36 by Toya Lerner MD) Mother Diabetes Social History Social History Household Members: None Housing: House Housing Other:: 2 family house Do you presently have visiting nurse or other home services: No (previously had visiting services) Patient Tobacco Use Status: Former Tobacco user Quit Date: 2019 Tobacco use type: Cigarette Years Smoked: 30 e-Cigarette/Vaping Use: Never Used Second Hand Smoke Exposure: No Use of substances other than those prescribed or required for medical reasons: No Substance Use Type: Marijuana, Opiates, Prescription Drugs and Caffiene Currently Displaying Signs/Symptoms of Drug Intoxication Withdrawal: No Have you been hit, kicked, punched, or otherwise hurt by someone within the past year? If so, by whom?: No Do you feel safe in your current relationship?: No Current Relationship Is there a partner from a previous relationship who is making you feel unsafe now?: No Are you made to feel afraid or neglected: No Advance Directives: No Advance Directives Information Provided: No Do you have thoughts of harming others: None Do you have a plan to hurt others: No Plan Recently lost weight without trying: No How much weight loss: Not applicable Eating poorly because of decreased appetite: No Nutrition screen score: 0 Nutrition Risks: No Nutritional Risk Patient : No : No Poor oral hygiene: No service: No Sexual orientation: Straight/Heterosexual Meds Allergies Allergy/AdvReac Type Severity Reaction Status Date / Time No Known Allergies Allergy Unverified 02/06/21 22:26 Active Medications: Current Medications Acetaminophen (Acetaminophen 325 Mg Tablet) 650 mg PO Q6H PRN PRN Reason: Pain, Mild (Pain Scale 1-3) Dextrose (Dextrose 50 % 25 Gm/50 Ml Vial) 25 gm IVPUSH Q15M PRN; Protocol PRN Reason: per Hypoglycemia Standing Ord. Docusate Sodium (Docusate Sodium 100 Mg Capsule) 100 mg PO DAILY PRN PRN Reason: Constipation Glucose (Glucose Gel 15 Gm Gel..Gram.) 15 gm PO Q15M PRN; Protocol PRN Reason: per Hypoglycemia Standing Ord. Diltiazem HCl 125 mg/ Sodium (Chloride) 125 mls @ 0 mls/hr IVCONT .Q0M [facility]; Protocol Last Titration: 02/11/21 06:19 Dose: 5 mg/hr, 5 mls/hr Documented by: Insulin Human Lispro (Insulin Lispro 100 Unit/Ml 3 Ml Vial) 0 unit SUBCUT QIDACHS [facility]; Protocol Last Admin: 02/11/21 07:45 Dose: 4 unit Documented by: Metoprolol Tartrate (Metoprolol Tartrate 5 Mg/5 Ml Vial) 5 mg IVPUSH Q6H PRN PRN Reason: HR>120 Last Admin: 02/11/21 00:30 Dose: 5 mg Documented by: Ondansetron HCl (Ondansetron Hcl 4 Mg/2 Ml Vial) 4 mg IVPUSH Q8H PRN PRN Reason: Nausea and Vomiting Sodium Chloride (0.9 % Sodium Chloride Flush 3 Ml Syringe) [facility] Last Admin: 10/24/21 10:12 Dose: Not Given Documented by: Home Medications Medication Instructions Recorded Confirmed Last Taken Type amlodipine 10 mg tablet 1 tab PO DAILY 02/11/21 02/11/21 Unknown History carvedilol 6.25 mg tablet 1 tab PO BID 02/11/21 02/11/21 Unknown History glipizide 10 mg tablet 1 tab PO DAILY 02/11/21 02/11/21 Unknown History levothyroxine 50 mcg tablet 1 tab PO DAILY 02/11/21 02/11/21 Unknown History risperidone 4 mg tablet 2 mg PO DAILY 02/11/21 02/11/21 Unknown History risperidone 4 mg tablet 4 mg PO BEDTIME 02/11/21 02/11/21 Unknown History trazodone 50 mg tablet 1 tab PO BEDTIME 02/11/21 02/11/21 Unknown History Physical Exam Vital Signs: Vital Signs: Last Vital Signs Temp 97 F 02/11/21 07:08 Pulse 108 H 02/11/21 09:09 Resp 19 02/11/21 07:08 BP 124/62 02/11/21 07:08 Pulse Ox 98 02/11/21 07:08 Body Mass Index 20.6 Const: General: cooperative and no acute distress HENMT: Other: Unremarkable Neck: Neck: Yes normal visual inspection Chest: Chest palpation & inspection: normal inspection of the chest Resp: Auscultation: clear to auscultation bilaterally, no crackles and no wheezes Cardio: Jugular venous distension: no JVD Palpation: normal PMI Heart sounds: S1 normal heart sound present, S2 normal heart sound present, no gallops, no murmurs and no rubs GI: Palpation (GI): Soft to palpation Back/Spine/Pelvis: Other: unremarkable Skin: General skin exam: no rashes or lesions noted Neuro: Cranial nerves: Yes Other cranial nerve findings present Extrem: General: Yes no clubbing, cyanosis or edema Psych: Mental Status: other Results Labs and Meds Result diagrams: 02/11/21 04:06 02/11/21 04:06 Lab results: Laboratory Results - last 24 hr 02/11/21 02/11/21 02/11/21 00:49 04:06 04:06 WBC 6.0 RBC 2.84 L D Hgb 9.1 L D Hct 26.0 L D MCV 91.5 MCH 32.0 MCHC 35.0 RDW 11.9 Plt Count 144 L D MPV 10.4 Immature Gran % (Auto) 0.5 H Neut % (Auto) 78.4 H Lymph % (Auto) 12.3 L [place] % (Auto) 7.8 Eos % (Auto) 0.8 Baso % (Auto) 0.2 Lymph # (Auto) 0.7 L [place] # (Auto) 0.5 Eos # (Auto) 0.1 Baso # (Auto) 0.0 Abs Immat Gran (auto) 0.03 Absolute Neuts (auto) 4.7 Absolute Nucleated RBC 0.000 Nucleated RBC % (auto) 0.0 Sodium 133 L Potassium 4.3 Chloride 100 Carbon Dioxide 22 Anion Gap 15 BUN 69 H Creatinine 2.37 H Estim Creat Clear Calc 22.4 Estimated GFR 21 POC Glucose Random Glucose 243 H Calcium 8.7 Troponin I High Sens 88.7 H* TSH 2.91 02/11/21 02/11/21 04:06 07:08 WBC RBC Hgb Hct MCV MCH MCHC RDW Plt Count MPV Immature Gran % (Auto) Neut % (Auto) Lymph % (Auto) [place] % (Auto) Eos % (Auto) Baso % (Auto) Lymph # (Auto) [place] # (Auto) Eos # (Auto) Baso # (Auto) Abs Immat Gran (auto) Absolute Neuts (auto) Absolute Nucleated RBC Nucleated RBC % (auto) Sodium Potassium Chloride Carbon Dioxide Anion Gap BUN Creatinine Estim Creat Clear Calc Estimated GFR POC Glucose 219 H Random Glucose Calcium Troponin I High Sens 95.7 H* TSH ECG Interpretation: EKG is reviewed. Atrial flutter with rapid rate at 117/minute left ventricular hypertrophy/repolarization. Admission EKG reported as sinus tachycardia but the actual rhythm seems to be atrial flutter at 115/min. Imaging Radiologist's impression: Impressions Chest X-Ray 02/11/21 00:37 IMPRESSION: No acute cardiopulmonary findings. Assessment and Plan (1) Atrial flutter with rapid ventricular response: Status: Acute (2) Elevated troponin: Status: Acute Atrial flutter of uncertain duration. Elevated troponins most likely from demand. Currently on Cardizem drip and that seems reasonable. Based on the thromboembolic risk, will benefit from anticoagulation and hence can initiate Eliquis. Echocardiogram for cardiac function assessment. Will try to look for records from [facility] as she states her pacemaker was implanted there. Will follow-up with you. Procedures Date of Service Date of Service: 02/11/21
--- NOTE | 2021-02-11 11:09 | MHC.CM.PN ---
Lives at home alone, owns walker but does not use it, no recent services. Still drives. At time of D/C plan is home via sister. Patient to call sister for shrimp picker. CM to follow.
[2021-02-11 11:23] LABS: Glucose, Whole Blood 251 mg/dL (60-115)
--- NOTE | 2021-02-11 12:24 | P.EN_ITS ---
Event Note Date of Service: 02/11/21 Event Note: Seen/examined. Exam unchanges since admit. Appreciate Cardiology i nput. Will add Eliquist and titrate Cardizem Gtt to rate. Further plans based on clinical response and forthcoming data.
--- NOTE | 2021-02-11 12:27 | P.EN_ITS ---
Event Note Date of Service: 02/11/21 Event Note: Chart reviewed/pt examined. Exam unchanges from this am. Monitor A fib with RVR; intermittant control on Cardizem gtt. Appreciate Cards input. Will initiate Eliquist. Adjust gtt as indicated.
[2021-02-11 12:58] LABS: Appearance Urine CLEAR; Color Urine STRAW; Glucose Urine UA 100 MG/DL (NEG); Leukocyte Esterase Urine TRACE (NEG); Nitrite Urine NEG (NEG); Urine Blood NEG (NEG); Urine Ketones NEG (NEG); Urine Protein 2+ MG/DL (NEG-TRACE)
[2021-02-11 13:08] LABS: Bacteria Urine TRACE /LPF; RBC Urine 0-2 /HPF (0); Squamous Epithelial Cell Urine 1+ /LPF; Urine Talc Crystals 1+ /LPF
[2021-02-11] MEDS: Apixaban 5 MG TABLET PO ×2 (13:50→21:51)
--- NOTE | 2021-02-11 14:48 | PC.NURSE ---
Pt has remained in atrial flutter all day on tele. Cardizerm drip running at 5mg/hr. In early afternoon pt having short bursts of rapid HR up to 150s. Pt having a hard time describing palpitations, stating it doesnt hurt but hard to describe the sensation stating can feel its there when HR rapid. bursts becoming more frequent so Cardizem adjusted to 10mg/hr. Since, pt has not had these episodes, resting HR at this time 70s. Per protocol would turn drip down but RN contacted Dr Mir as these rapid bursts have decreased since on 10mg/hr and pt tolerating it well. Instructed to leave the cardizem drip at 10mg/hr per cardio. Will continue to closely monitor patients assessment and vital signs. Will adjust as needed and guided by cardio & will pass onto oncoming RN.
[2021-02-11 16:07] LABS: Glucose, Whole Blood 168 mg/dL (60-115)
--- NOTE | 2021-02-11 18:04 | PC.NURSE ---
New medication orders placed for pt at 12:30. Psychologist saw patient and states that should hold psych medications including risperadone until cardiac symptoms have stabilized. Notified Dr. Silveira and asked to confirm which medications should be given. Dr. Silveira said that he consulted cardiology and that medications are accurate. Will pass on to next nurse.
--- NOTE | 2021-02-11 18:35 | HO.PSYCHPN ---
Subjective Subjective Date of Service: 02/11/21 Reason For Visit: New Onset A flutter Interim History: Events of last 24 hours noted. Thu is comfortable on medical floor and she feels safe. She has had no behavioral issues. Cardiac work up in process. She is not Rx risperdal at this time Mental Status Exam Mental Status Exam Narrative: Pt is alert and oriented to self, place, situation; behavior is cooperative, more organized; appropriate; mood is OK; ? and affect brighter; eye contact adequate; Speech still latent but less so; normal volume, still monotone;? still with psychomotor retardation but less; thought process is slowed but more disorganized and goal oriented; Thought content vacuous; no SI/HI; is on tx; still with delusional content; denies any SI/HI. Still with thought blocking and internal preoccupation but much less so; Patients insight and judgment impaired but improving. Diagnostics Vital Signs (24Hr): Vital Signs - 24 hr 02/11/21 00:30 02/11/21 00:32 02/11/21 02:31 Temperature 97.6 F Pulse Rate 147 H 143 H 147 H Respiratory Rate 18 Blood Pressure 128/80 128/80 106/71 Pulse Oximetry 98 02/11/21 04:00 02/11/21 04:25 02/11/21 07:08 Temperature 97.9 F 97 F Pulse Rate 145 H 149 H 124 H Respiratory Rate 17 19 Blood Pressure 113/74 113/74 124/62 Pulse Oximetry 99 98 02/11/21 09:09 02/11/21 11:06 02/11/21 12:19 Temperature 96 F L Pulse Rate 108 H 99 145 H Respiratory Rate 18 Blood Pressure 141/68 H Pulse Oximetry 96 02/11/21 15:01 Temperature 98.1 F Pulse Rate 77 Respiratory Rate 20 Blood Pressure 156/65 H Pulse Oximetry 97 Body Mass Index 20.6 Labs Results: 02/11/21 04:06 02/11/21 04:06 Labs: Laboratory Results - last 48 hr 02/11/21 02/11/21 02/11/21 00:49 04:06 04:06 WBC 6.0 RBC 2.84 L D Hgb 9.1 L D Hct 26.0 L D MCV 91.5 MCH 32.0 MCHC 35.0 RDW 11.9 Plt Count 144 L D MPV 10.4 Immature Gran % (Auto) 0.5 H Neut % (Auto) 78.4 H Lymph % (Auto) 12.3 L [place] % (Auto) 7.8 Eos % (Auto) 0.8 Baso % (Auto) 0.2 Lymph # (Auto) 0.7 L [place] # (Auto) 0.5 Eos # (Auto) 0.1 Baso # (Auto) 0.0 Abs Immat Gran (auto) 0.03 Absolute Neuts (auto) 4.7 Absolute Nucleated RBC 0.000 Nucleated RBC % (auto) 0.0 Sodium 133 L Potassium 4.3 Chloride 100 Carbon Dioxide 22 Anion Gap 15 BUN 69 H Creatinine 2.37 H Estim Creat Clear Calc 22.4 Estimated GFR 21 POC Glucose Random Glucose 243 H Calcium 8.7 Troponin I High Sens 88.7 H* TSH 2.91 Urine Color Urine Appearance Urine pH Ur Specific [place] Urine Protein Urine Glucose (UA) Urine Ketones Urine Blood Urine Nitrite Ur Leukocyte Esterase Urine RBC Urine WBC Ur Squamous Epith Cells Talc Crystals Urine Bacteria 02/11/21 02/11/21 02/11/21 04:06 07:08 11:06 WBC RBC Hgb Hct MCV MCH MCHC RDW Plt Count MPV Immature Gran % (Auto) Neut % (Auto) Lymph % (Auto) [place] % (Auto) Eos % (Auto) Baso % (Auto) Lymph # (Auto) [place] # (Auto) Eos # (Auto) Baso # (Auto) Abs Immat Gran (auto) Absolute Neuts (auto) Absolute Nucleated RBC Nucleated RBC % (auto) Sodium Potassium Chloride Carbon Dioxide Anion Gap BUN Creatinine Estim Creat Clear Calc Estimated GFR POC Glucose 219 H 251 H Random Glucose Calcium Troponin I High Sens 95.7 H* TSH Urine Color Urine Appearance Urine pH Ur Specific [place] Urine Protein Urine Glucose (UA) Urine Ketones Urine Blood Urine Nitrite Ur Leukocyte Esterase Urine RBC Urine WBC Ur Squamous Epith Cells Talc Crystals Urine Bacteria 02/11/21 02/11/21 12:51 16:01 WBC RBC Hgb Hct MCV MCH MCHC RDW Plt Count MPV Immature Gran % (Auto) Neut % (Auto) Lymph % (Auto) [place] % (Auto) Eos % (Auto) Baso % (Auto) Lymph # (Auto) [place] # (Auto) Eos # (Auto) Baso # (Auto) Abs Immat Gran (auto) Absolute Neuts (auto) Absolute Nucleated RBC Nucleated RBC % (auto) Sodium Potassium Chloride Carbon Dioxide Anion Gap BUN Creatinine Estim Creat Clear Calc Estimated GFR POC Glucose 168 H Random Glucose Calcium Troponin I High Sens TSH Urine Color STRAW Urine Appearance CLEAR Urine pH 6.0 Ur Specific [place] 1.010 Urine Protein 2+ H Urine Glucose (UA) 100 H Urine Ketones NEG Urine Blood NEG Urine Nitrite NEG Ur Leukocyte Esterase TRACE H Urine RBC 0-2 Urine WBC 1-4 Ur Squamous Epith Cells 1+ Talc Crystals 1+ Urine Bacteria TRACE Imaging Radiology Impressions: ITS Impressions Chest X-Ray 02/11/21 00:37 IMPRESSION: No acute cardiopulmonary findings. Medications Medications Current Medications Acetaminophen (Acetaminophen 325 Mg Tablet) 650 mg PO Q6H PRN PRN Reason: Pain, Mild (Pain Scale 1-3) Amlodipine Besylate (Amlodipine Besylate 10 Mg Tablet) 10 mg PO DAILY [facility]; Protocol Apixaban (Apixaban 5 Mg Tablet) 5 mg PO BID [facility] Last Admin: 02/11/21 13:50 Dose: 5 mg Documented by: Carvedilol (Carvedilol 6.25 Mg Tablet) 6.25 mg PO BID [facility]; Protocol Dextrose (Dextrose 50 % 25 Gm/50 Ml Vial) 25 gm IVPUSH Q15M PRN; Protocol PRN Reason: per Hypoglycemia Standing Ord. Docusate Sodium (Docusate Sodium 100 Mg Capsule) 100 mg PO DAILY PRN PRN Reason: Constipation Glipizide (Glipizide 10 Mg Tablet) 10 mg PO DAILY [facility] Glucose (Glucose Gel 15 Gm Gel..Gram.) 15 gm PO Q15M PRN; Protocol PRN Reason: per Hypoglycemia Standing Ord. Diltiazem HCl 125 mg/ Sodium (Chloride) 125 mls @ 0 mls/hr IVCONT .Q0M [facility]; Protocol Last Titration: 02/11/21 12:20 Dose: 10 mg/hr, 10 mls/hr Documented by: Insulin Human Lispro (Insulin Lispro 100 Unit/Ml 3 Ml Vial) 0 unit SUBCUT QIDACHS [facility]; Protocol Last Admin: 02/11/21 17:10 Dose: 2 unit Documented by: Levothyroxine Sodium (Levothyroxine Sodium 50 Mcg Tablet) 50 mcg PO DAILY@0600 [facility] Metoprolol Tartrate (Metoprolol Tartrate 5 Mg/5 Ml Vial) 5 mg IVPUSH Q6H PRN PRN Reason: HR>120 Last Admin: 02/11/21 00:30 Dose: 5 mg Documented by: Ondansetron HCl (Ondansetron Hcl 4 Mg/2 Ml Vial) 4 mg IVPUSH Q8H PRN PRN Reason: Nausea and Vomiting Risperidone (Risperidone 2 Mg Tablet) 2 mg PO DAILY [facility] Risperidone (Risperidone 2 Mg Tablet) 4 mg PO BEDTIME [facility] Sodium Chloride (0.9 % Sodium Chloride Flush 3 Ml Syringe) 3 ml IVFLUSH QSHIFT [facility] Last Admin: 02/11/21 17:11 Dose: Not Given Documented by: Trazodone HCl (Trazodone Hcl 50 Mg Tablet) 50 mg PO BEDTIME PRN PRN Reason: Insomnia Allergies Allergies Allergy/AdvReac Type Severity Reaction Status Date / Time No Known Allergies Allergy Unverified 02/06/21 22:26 Assessment & Plan Assessment & Plan (1) Atrial flutter with rapid ventricular response: Status: Acute Code(s): I48.92 - Unspecified atrial flutter (2) Elevated troponin: Status: Acute Code(s): R77.8 - Other specified abnormalities of plasma proteins Assessment and Plan: Atrial flutter of uncertain duration. Elevated troponins most likely from demand. Currently on Cardizem drip and that seems reasonable. Recommend you hold psychiatric medications until Thu is stable from a cardiac standpoint. Consult Psychiatry in am. I spent minutes with the patient and/or on the patient floor today, greater than?50% of which was spent counseling/coordinating care. Reason for contiued inpatient stay Substantial Risk for: rapid decompensation
[2021-02-11 20:01] LABS: Glucose, Whole Blood 238 mg/dL (60-115)
[2021-02-11] MEDS: risperiDONE 2 MG TABLET 4 MG PO (21:51)
[2021-02-11] MEDS: carvediloL 6.25 MG TABLET PO (21:51)
[2021-02-11] MEDS: 0.9 % Sodium Chloride Flush 3 ML SYRINGE IVFLUSH (21:52)
[2021-02-11] MEDS: traZODone HCL 50 MG TABLET PO (21:56)
[2021-02-12] VITALS (7 sets, daily range): BP systolic 107–160; BP diastolic 52–71; PULSE 62–80; RESP 16–18; TEMP 36.6–37; O2SAT 95–99
--- NOTE | 2021-02-12 00:46 | CA_ITS ---
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 The visually estimated ejection fraction is between 50-55%. - There is mildly decreased right ventricular systolic function. - No significant valvular disease. Findings Left Ventricle Normal left ventricular cavity size. There is mildly increased left ventricular wall thickness. The left ventricular systolic function is low normal. The visually estimated ejection fraction is between 50-55%. Regional wall motion abnormalities can not be excluded due to suboptimal endocardial definition. Diastolic function is indeterminate on the basis of available data. Right Ventricle Normal right ventricular cavity size. There is mildly decreased right ventricular systolic function. There is a pacemaker wire seen in the right ventricle. Atria Both atria are normal in size. Aortic Valve There is a normal trileaflet aortic valve. There is mild thickening of the aortic valve. There is no aortic valve stenosis. There is no aortic valve regurgitation. Mitral Valve The mitral valve appears normal. There is no mitral valve regurgitation. There is no mitral valve stenosis. Pulmonic Valve Normal pulmonic valve structure and function. There is trace pulmonic valve regurgitation. Tricuspid Valve Normal tricuspid valve structure. There is no tricuspid valve regurgitation. Normal right atrial pressure. There is no evidence of pulmonary hypertension. Great Vessels All visible segments of the aorta are normal in size. The visualized portions of the pulmonary artery and branches are normal. Venous The inferior vena cava is normal in size and collapses greater than 50% with inspiration. Pericardium/Pleural Prominent epicardial adipose tissue noted. There is no evidence of pericardial effusion. Prior Study Comparison No prior study available for comparison. Measurements 2D Linear Measurements IVSd: 0.98 0.6-0.9/0.6-1.0 cm LVIDd: 5.31 3.9-5.3/4.2-5.9 cm LVIDd Index: 3.30 2.4-3.2/2.2-3.1 cm/m2 LVIDs: 3.61 2.0-3.6 cm LVPWd: 1.07 0.7-1.1 cm Ao Root: 3.00 2.1-3.5 cm LA Diam: 3.60 2.7-3.8/3.0-4.0 cm LAIDs Index: 2.24 1.5-2.3 cm/m2 LV Mass: 258.25 67-162/88-224 g LV Mass Index: 160.40 43-95/49-115 g/m2 LVOT Diam: 2.10 3.0+(-)1.3 cm 2D Systolic Function EF 4C: 57.20 >55% EF 2C: 53.80 >55% EF BiP: 54.20 >55% Mitral Valve MV Pk E: 0.59 MV PK A: 0.76 MV Decel Time: 151.00 E/A: 0.80 PHT: 44.00 MVA PHT: 5.00 Decel [place]: 3.91 Aortic Valve AoV Pk [place]: 1.31 AoV Mn [place]: 0.84 AoV VTI: 0.23 AoV Pk Grad: 7.00 Aov Mn Grad: 3.00 KUNAL Cont.VTI: 2.26 LVOT LVOT Pk [place]: 1.07 LVOT Mn [place]: 0.65 LVOT VTI: 0.15 LVOT Pk Grad: 5.00 LVOT Mn Grad: 2.00 LVOT Diam: 2.10 LVOT Area: 3.46 Diastolic Function MV Pk E: 0.59 MV Pk A: 0.76 E/A: 0.80 Right Ventricle TAPSE (mm): 1.52 TVS' [place]: 10.40 Tricuspid Valve TR Pk [place]: 1.91 TR Pk Grad: 15.00 RA Press: 3.00 RVSP: 18.00 Great Vessels Aorta Ao Root-2D: 3.00 2.0-3.7 cm Ao Asc: 3.10 2.1-3.4 cm Ao Arch: 2.10 Updated in Other Vendor System with Status of Final Roddy Bender MD electronically signed on 02/12/2021 4:04:36 PM with status of Final
[2021-02-12] MEDS: Levothyroxine Sodium 50 MCG TABLET PO (06:28)
[2021-02-12 07:06] LABS: MANUAL DIFF FLAG NO
[2021-02-12 07:14] LABS: Basophils Percent Auto 0.2 % (0-2); Eosinophils Absolute Auto 0.1 X10*3/uL (0.0-0.4); Eosinophils Percent Auto 1.6 % (0-4); Hematocrit 26.8 % (37-47); Hemoglobin 9.1 g/dl (12.0-16.0); Imm Gran Abs Auto 0.05 X10*3/uL (0.00-0.03); Imm Gran Pct Auto 0.8 % (0.0-0.4); Lymphocytes Absolute Auto 0.9 X10*3/uL (1.2-4.9); Lymphocytes Percent Auto 13.7 % (20-40); Mean Corpuscular Hemoglobin 31.3 pg (27.0-33.0); Mean Corpuscular Volume 92.1 fL (80-98); Mean Platelet Volume 10.6 fL (9.4-12.3); Monocytes Absolute Auto 0.5 X10*3/uL (0.1-1.2); Monocytes Percent Auto 8.3 % (2-11); Neutrophils Absolute Auto 4.8 X10*3/uL (2.0-8.3); Neutrophils Percent Auto 75.4 % (45-73); Platelet Count 159 X10*3/uL (160-400); Red Blood Count 2.91 X10*6/uL (4.20-5.50); Red Cell Distribution Width 12.2 % (11.0-16.0); White Blood Count 6.3 X10*3/uL (4.8-10.8)
--- NOTE | 2021-02-12 07:29 | PC.NURSE ---
Pt remained Atrial Flutter overnight on tele. HR remained in the 70s-80s for majority of night. Cardizem gtt was titrated down to 5mg/hr at 0206 then paused and disconnected from patient at 0536 this morning due to patients HR dropping in the high 60s. Since Cardizem gtt has been paused and disconnected, patients HR has remained in the 70s-80s, still Atrial Flutter. Patient is asymptomatic, laying comfortably in bed. Continuous tele monitoring in place.
[2021-02-12 07:55] LABS: Glucose, Whole Blood 159 mg/dL (60-115)
[2021-02-12 07:56] LABS: Alanine Aminotransferase 29 U/L (0-31); Albumin Level 3.4 g/dL (3.5-5.0); Alkaline Phosphatase 70 U/L (39-117); Anion Gap 11 (12-20); Aspartate Amino Transferase 19 U/L (5-31); Bilirubin Total 0.2 mg/dL (0.0-1.0); Blood Urea Nitrogen 63 mg/dL (9-16); Calcium 9.3 mg/dL (8.4-10.2); Carbon Dioxide 25 mmol/L (22-29); Chloride 107 mmol/L (96-108); Creatinine Clr Calc Pharmacy 23.7; Estimated Glomerular Filt Rate 22; Glucose Fasting 173 mg/dL (60-99); Potassium 4.4 mmol/L (3.3-5.1); Sodium 139 mmol/L (135-145); Total Protein 5.6 g/dL (6.5-8.0)
[2021-02-12] MEDS: Insulin Lispro 100 UNIT/ML 3 ML VIAL SUBCUT ×2 (08:13→20:23)
[2021-02-12] MEDS: Apixaban 5 MG TABLET PO ×2 (08:14→20:15)
[2021-02-12] MEDS: amLODIPine Besylate 10 MG TABLET PO (08:14)
[2021-02-12] MEDS: carvediloL 6.25 MG TABLET PO ×2 (08:14→20:15)
[2021-02-12] MEDS: risperiDONE 2 MG TABLET PO (08:14)
[2021-02-12] MEDS: glipiZIDE 10 MG TABLET PO (08:14)
[2021-02-12] MEDS: 0.9 % Sodium Chloride Flush 3 ML SYRINGE IVFLUSH (08:15)
[2021-02-12 08:24] LABS: Magnesium 2.2 mg/dL (1.6-2.6)
[2021-02-12 08:38] LABS: Troponin-I High Sensitivity 56.9 ng/L (<3.5-17.0)
--- NOTE | 2021-02-12 11:39 | HO.PM.IMPN ---
Subjective Subjective Date of Service: 02/12/21 Interval History: Affect flat this a.m.. Tolerating Cardizem drip without issue. No acute issues Physical Exam Vital Signs: Vital Signs: Last Vital Signs Temp 98.3 F 02/12/21 11:12 Pulse 68 02/12/21 11:12 Resp 16 02/12/21 11:12 BP 126/67 02/12/21 11:12 Pulse Ox 95 02/12/21 11:12 Body Mass Index 20.6 Const: Other: No acute issues HENMT: Other: Membranes moist pharynx clear Resp: Other: Clear to auscultation bilaterally. No rales rhonchi or wheezes Cardio: Other: No S4; positive S1-S2; no S3 murmurs of gallops. Irregularly irregular GI: Other: Soft nontender nondistended normoactive bowel sounds. No peritoneal signs Neuro: Other: Cranial nerves 2-12 grossly intact as tested. Motor is 5/5 all extremities; Sensation intact; cognition is appropriate affect is flat Extrem: Other: No edema Objective Data Active Medications Acetaminophen (Acetaminophen 325 Mg Tablet) 650 mg PO Q6H PRN PRN Reason: Pain, Mild (Pain Scale 1-3) Amlodipine Besylate (Amlodipine Besylate 10 Mg Tablet) 10 mg PO DAILY [facility]; Protocol Last Admin: 02/12/21 08:14 Dose: 10 mg Documented by: ERIC Apixaban (Apixaban 5 Mg Tablet) 5 mg PO BID [facility] [place] Last Admin: 02/12/21 08:14 Dose: 5 mg Documented by: ERIC Carvedilol (Carvedilol 6.25 Mg Tablet) 6.25 mg PO BID [facility]; Protocol Last Admin: 02/12/21 08:14 Dose: 6.25 mg Documented by: ERIC Dextrose (Dextrose 50 % 25 Gm/50 Ml Vial) 25 gm IVPUSH Q15M PRN; Protocol PRN Reason: per Hypoglycemia Standing Ord. Docusate Sodium (Docusate Sodium 100 Mg Capsule) 100 mg PO DAILY PRN PRN Reason: Constipation Glipizide (Glipizide 10 Mg Tablet) 10 mg PO DAILY [facility] [place] Last Admin: 02/12/21 08:14 Dose: 10 mg Documented by: ERIC Glucose (Glucose Gel 15 Gm Gel..Gram.) 15 gm PO Q15M PRN; Protocol PRN Reason: per Hypoglycemia Standing Ord. Diltiazem HCl 125 mg/ Sodium (Chloride) 125 mls @ 0 mls/hr IVCONT .Q0M [facility]; Protocol Last Titration: 02/12/21 05:36 Dose: 0 mg/hr, 0 mls/hr Documented by: FIONA Insulin Human Lispro (Insulin Lispro 100 Unit/Ml 3 Ml Vial) 0 unit SUBCUT QIDACHS [facility] [place]; Protocol Last Admin: 02/12/21 08:13 Dose: 2 unit Documented by: ERIC Levothyroxine Sodium (Levothyroxine Sodium 50 Mcg Tablet) 50 mcg PO DAILY@0600 [facility] [place] Last Admin: 02/12/21 06:28 Dose: 50 mcg Documented by: FIONA Metoprolol Tartrate (Metoprolol Tartrate 5 Mg/5 Ml Vial) 5 mg IVPUSH Q6H PRN PRN Reason: HR>120 Last Admin: 02/11/21 00:30 Dose: 5 mg Documented by: ERINN Ondansetron HCl (Ondansetron Hcl 4 Mg/2 Ml Vial) 4 mg IVPUSH Q8H PRN PRN Reason: Nausea and Vomiting Risperidone (Risperidone 2 Mg Tablet) 2 mg PO DAILY [facility] [place] Last Admin: 02/12/21 08:14 Dose: 2 mg Documented by: ERIC Risperidone (Risperidone 2 Mg Tablet) 4 mg PO BEDTIME [facility] [place] Last Admin: 02/11/21 21:51 Dose: 4 mg Documented by: FIONA Sodium Chloride (0.9 % Sodium Chloride Flush 3 Ml Syringe) 3 ml IVFLUSH QSHIFT [facility] [place] Last Admin: 02/12/21 08:15 Dose: 3 ml Documented by: ERIC Trazodone HCl (Trazodone Hcl 50 Mg Tablet) 50 mg PO BEDTIME PRN PRN Reason: Insomnia Last Admin: 02/11/21 21:56 Dose: 50 mg Documented by: FIONA Labs CBC & Chem 7: 02/12/21 06:31 02/12/21 06:31 Labs: Laboratory Results - last 24 hr 02/11/21 02/11/21 02/11/21 12:51 16:01 19:48 MCV MCH MCHC RDW Plt Count MPV Immature Gran % (Auto) Neut % (Auto) Lymph % (Auto) [place] % (Auto) Eos % (Auto) Baso % (Auto) Lymph # (Auto) [place] # (Auto) Eos # (Auto) Baso # (Auto) Abs Immat Gran (auto) Absolute Neuts (auto) Absolute Nucleated RBC Nucleated RBC % (auto) Anion Gap Estim Creat Clear Calc Estimated GFR POC Glucose 168 H 238 H Fasting Glucose Calcium Magnesium Total Bilirubin AST ALT Alkaline Phosphatase Troponin I High Sens Total Protein Albumin Urine Color STRAW Urine Appearance CLEAR Urine pH 6.0 Ur Specific [place] 1.010 Urine Protein 2+ H Urine Glucose (UA) 100 H Urine Ketones NEG Urine Blood NEG Urine Nitrite NEG Ur Leukocyte Esterase TRACE H Urine RBC 0-2 Urine WBC 1-4 Ur Squamous Epith Cells 1+ Talc Crystals 1+ Urine Bacteria TRACE 02/12/21 02/12/21 02/12/21 06:31 06:31 06:31 MCV 92.1 MCH 31.3 MCHC 34.0 RDW 12.2 Plt Count 159 L MPV 10.6 Immature Gran % (Auto) 0.8 H Neut % (Auto) 75.4 H Lymph % (Auto) 13.7 L [place] % (Auto) 8.3 Eos % (Auto) 1.6 Baso % (Auto) 0.2 Lymph # (Auto) 0.9 L [place] # (Auto) 0.5 Eos # (Auto) 0.1 Baso # (Auto) 0.0 Abs Immat Gran (auto) 0.05 H Absolute Neuts (auto) 4.8 Absolute Nucleated RBC 0.000 Nucleated RBC % (auto) 0.0 Anion Gap 11 L Estim Creat Clear Calc 23.7 Estimated GFR 22 POC Glucose Fasting Glucose 173 H Calcium 9.3 D Magnesium 2.2 Total Bilirubin 0.2 AST 19 D ALT 29 Alkaline Phosphatase 70 D Troponin I High Sens 56.9 H* Total Protein 5.6 L Albumin 3.4 L Urine Color Urine Appearance Urine pH Ur Specific [place] Urine Protein Urine Glucose (UA) Urine Ketones Urine Blood Urine Nitrite Ur Leukocyte Esterase Urine RBC Urine WBC Ur Squamous Epith Cells Talc Crystals Urine Bacteria 02/12/21 07:28 MCV MCH MCHC RDW Plt Count MPV Immature Gran % (Auto) Neut % (Auto) Lymph % (Auto) [place] % (Auto) Eos % (Auto) Baso % (Auto) Lymph # (Auto) [place] # (Auto) Eos # (Auto) Baso # (Auto) Abs Immat Gran (auto) Absolute Neuts (auto) Absolute Nucleated RBC Nucleated RBC % (auto) Anion Gap Estim Creat Clear Calc Estimated GFR POC Glucose 159 H Fasting Glucose Calcium Magnesium Total Bilirubin AST ALT Alkaline Phosphatase Troponin I High Sens Total Protein Albumin Urine Color Urine Appearance Urine pH Ur Specific [place] Urine Protein Urine Glucose (UA) Urine Ketones Urine Blood Urine Nitrite Ur Leukocyte Esterase Urine RBC Urine WBC Ur Squamous Epith Cells Talc Crystals Urine Bacteria Assessment and Plan (1) Atrial flutter with rapid ventricular response: Status: Acute (2) Acute kidney injury superimposed on CKD: Status: Acute (3) Hypothyroidism: Status: Acute (4) Diabetes: Status: Acute Assessment and Plan: 60-year-old female with past medical history of diabetes, hypertension, who was being managed at [facility] for schizoaffective disorder developed a flutter with rapid ventricular response and will be admitted to the floor for further management 1.New onset a flutter Appreciate cardiology input. Stable on Cardizem drip; await further recommendations. Echo pending. Continue Eliquis Troponins trending downward; continue telemetry 2.DMII: Glipizide added back continue Continues sliding scale as ordered 3.Schizoaffective disorder Appreciate psych input. Favor continuing meds; discussed with Ca full code Re-consult psych when appropriate for transfer 4.CKD At baseline; continue follow 5. Hypertension Continue current therapies DVT prophylaxis: Xarelto Quality Stroke Does the patient have a stroke diagnosis?: No VTE Prior VTE?: No VTE Risk Level:: Medical - moderate - high VTE Device Contraindication: Treatment Not Indicated VTE Drug Contraindication: N/A - Med Ordered
[2021-02-12 11:43] LABS: Glucose, Whole Blood 130 mg/dL (60-115)
--- NOTE | 2021-02-12 12:17 | PM.PNCARD ---
Subjective Subjective Date of Service: 02/12/21 Interval history: Denying any symptoms. Has been on Cardizem drip for the atrial flutter. Physical Exam Vital Signs: Last Vital Signs Temp 98.3 F 02/12/21 11:12 Pulse 68 02/12/21 11:12 Resp 16 02/12/21 11:12 BP 126/67 02/12/21 11:12 Pulse Ox 95 02/12/21 11:12 Body Mass Index 20.6 GENERAL APPEARANCE: in no acute distress, pleasant. NECK: no carotid bruit, no jugular venous distention. SKIN: no suspicious lesions, warm and dry. HEART: no murmurs, regular rate and rhythm. LUNGS: clear to auscultation bilaterally. ABDOMEN: soft, nontender. EXTREMITIES: no edema. PERIPHERAL PULSES: equal. NEUROLOGIC: No gross deficits, AAO X 3 Results Labs and Meds Result diagrams: 02/12/21 06:31 02/12/21 06:31 Lab results: Laboratory Results - last 24 hr 02/11/21 02/11/21 02/11/21 12:51 16:01 19:48 WBC RBC Hgb Hct MCV MCH MCHC RDW Plt Count MPV Immature Gran % (Auto) Neut % (Auto) Lymph % (Auto) [place] % (Auto) Eos % (Auto) Baso % (Auto) Lymph # (Auto) [place] # (Auto) Eos # (Auto) Baso # (Auto) Abs Immat Gran (auto) Absolute Neuts (auto) Absolute Nucleated RBC Nucleated RBC % (auto) Sodium Potassium Chloride Carbon Dioxide Anion Gap BUN Creatinine Estim Creat Clear Calc Estimated GFR POC Glucose 168 H 238 H Fasting Glucose Calcium Magnesium Total Bilirubin AST ALT Alkaline Phosphatase Troponin I High Sens Total Protein Albumin Urine Color STRAW Urine Appearance CLEAR Urine pH 6.0 Ur Specific [place] 1.010 Urine Protein 2+ H Urine Glucose (UA) 100 H Urine Ketones NEG Urine Blood NEG Urine Nitrite NEG Ur Leukocyte Esterase TRACE H Urine RBC 0-2 Urine WBC 1-4 Ur Squamous Epith Cells 1+ Talc Crystals 1+ Urine Bacteria TRACE 02/12/21 02/12/21 02/12/21 06:31 06:31 06:31 WBC 6.3 RBC 2.91 L Hgb 9.1 L Hct 26.8 L MCV 92.1 MCH 31.3 MCHC 34.0 RDW 12.2 Plt Count 159 L MPV 10.6 Immature Gran % (Auto) 0.8 H Neut % (Auto) 75.4 H Lymph % (Auto) 13.7 L [place] % (Auto) 8.3 Eos % (Auto) 1.6 Baso % (Auto) 0.2 Lymph # (Auto) 0.9 L [place] # (Auto) 0.5 Eos # (Auto) 0.1 Baso # (Auto) 0.0 Abs Immat Gran (auto) 0.05 H Absolute Neuts (auto) 4.8 Absolute Nucleated RBC 0.000 Nucleated RBC % (auto) 0.0 Sodium 139 Potassium 4.4 Chloride 107 Carbon Dioxide 25 Anion Gap 11 L BUN 63 H Creatinine 2.24 H Estim Creat Clear Calc 23.7 Estimated GFR 22 POC Glucose Fasting Glucose 173 H Calcium 9.3 D Magnesium 2.2 Total Bilirubin 0.2 AST 19 D ALT 29 Alkaline Phosphatase 70 D Troponin I High Sens 56.9 H* Total Protein 5.6 L Albumin 3.4 L Urine Color Urine Appearance Urine pH Ur Specific [place] Urine Protein Urine Glucose (UA) Urine Ketones Urine Blood Urine Nitrite Ur Leukocyte Esterase Urine RBC Urine WBC Ur Squamous Epith Cells Talc Crystals Urine Bacteria 02/12/21 02/12/21 07:28 11:10 WBC RBC Hgb Hct MCV MCH MCHC RDW Plt Count MPV Immature Gran % (Auto) Neut % (Auto) Lymph % (Auto) [place] % (Auto) Eos % (Auto) Baso % (Auto) Lymph # (Auto) [place] # (Auto) Eos # (Auto) Baso # (Auto) Abs Immat Gran (auto) Absolute Neuts (auto) Absolute Nucleated RBC Nucleated RBC % (auto) Sodium Potassium Chloride Carbon Dioxide Anion Gap BUN Creatinine Estim Creat Clear Calc Estimated GFR POC Glucose 159 H 130 H Fasting Glucose Calcium Magnesium Total Bilirubin AST ALT Alkaline Phosphatase Troponin I High Sens Total Protein Albumin Urine Color Urine Appearance Urine pH Ur Specific [place] Urine Protein Urine Glucose (UA) Urine Ketones Urine Blood Urine Nitrite Ur Leukocyte Esterase Urine RBC Urine WBC Ur Squamous Epith Cells Talc Crystals Urine Bacteria Progress Note: A&P Assessment and plan (1) Atrial flutter with rapid ventricular response: Status: Acute (2) HTN (hypertension): Status: Acute Assessment and Plan: Pleasant 60-year-old female who is presenting for atrial flutter. She has been on Cardizem drip with reasonable rate control. 6.25 mg twice a day at home. Cardizem drip can be changed to oral Cardizem. Would favor starting her on 120 mg Cardizem CD and titrate based on her heart rate response. It appears she had pacemaker placement before. This was performed for sick sinus syndrome and 11 second pause. Good rate control currently with Cardizem. Continue with anticoagulation Eliquis 5 mg twice a day. Follow-up with Dr. Aguirre. Fall Risk Details Current Medications: Current Medications Acetaminophen (Acetaminophen 325 Mg Tablet) 650 mg PO Q6H PRN PRN Reason: Pain, Mild (Pain Scale 1-3) Amlodipine Besylate (Amlodipine Besylate 10 Mg Tablet) 10 mg PO DAILY [facility]; Protocol Last Admin: 02/12/21 08:14 Dose: 10 mg Documented by: Apixaban (Apixaban 5 Mg Tablet) 5 mg PO BID [facility] Last Admin: 02/12/21 08:14 Dose: 5 mg Documented by: Carvedilol (Carvedilol 6.25 Mg Tablet) 6.25 mg PO BID [facility]; Protocol Last Admin: 02/12/21 08:14 Dose: 6.25 mg Documented by: Dextrose (Dextrose 50 % 25 Gm/50 Ml Vial) 25 gm IVPUSH Q15M PRN; Protocol PRN Reason: per Hypoglycemia Standing Ord. Docusate Sodium (Docusate Sodium 100 Mg Capsule) 100 mg PO DAILY PRN PRN Reason: Constipation Glipizide (Glipizide 10 Mg Tablet) 10 mg PO DAILY [facility] Last Admin: 02/12/21 08:14 Dose: 10 mg Documented by: Glucose (Glucose Gel 15 Gm Gel..Gram.) 15 gm PO Q15M PRN; Protocol PRN Reason: per Hypoglycemia Standing Ord. Diltiazem HCl 125 mg/ Sodium (Chloride) 125 mls @ 0 mls/hr IVCONT .Q0M [facility]; Protocol Last Titration: 02/12/21 05:36 Dose: 0 mg/hr, 0 mls/hr Documented by: Insulin Human Lispro (Insulin Lispro 100 Unit/Ml 3 Ml Vial) 0 unit SUBCUT QIDACHS [facility]; Protocol Last Admin: 02/12/21 12:10 Dose: Not Given Documented by: Levothyroxine Sodium (Levothyroxine Sodium 50 Mcg Tablet) 50 mcg PO DAILY@0600 [facility] Last Admin: 10/25/21 06:28 Dose: 50 mcg Documented by: Metoprolol Tartrate (Metoprolol Tartrate 5 Mg/5 Ml Vial) 5 mg IVPUSH Q6H PRN PRN Reason: HR>120 Last Admin: 02/11/21 00:30 Dose: 5 mg Documented by: Ondansetron HCl (Ondansetron Hcl 4 Mg/2 Ml Vial) 4 mg IVPUSH Q8H PRN PRN Reason: Nausea and Vomiting Risperidone (Risperidone 2 Mg Tablet) 2 mg PO DAILY [facility] Last Admin: 02/12/21 08:14 Dose: 2 mg Documented by: Risperidone (Risperidone 2 Mg Tablet) 4 mg PO BEDTIME [facility] Last Admin: 02/11/21 21:51 Dose: 4 mg Documented by: Sodium Chloride (0.9 % Sodium Chloride Flush 3 Ml Syringe) 3 ml IVFLUSH QSHIFT [facility] Last Admin: 02/12/21 08:15 Dose: 3 ml Documented by: Trazodone HCl (Trazodone Hcl 50 Mg Tablet) 50 mg PO BEDTIME PRN PRN Reason: Insomnia Last Admin: 02/11/21 21:56 Dose: 50 mg Documented by: Time Spent With Patient Time: Total time spent is greater than 50% in coordination of care (as documented) at patient's floor/unit and/or counseling patient: Time with patient: 15 - 24 minutes Progress Note: Quality Stroke Does the patient have a stroke diagnosis?: No Procedures Date of Service Date of Service: 02/12/21
[2021-02-12] MEDS: dilTIAZem HCL 50 MG/10 ML VIAL 10 MG IVPUSH (12:50)
[2021-02-12] MEDS: dilTIAZem HCL 125 MG in 0.9 % Sodium Chloride 100 ML IVCONT (13:17)
--- NOTE | 2021-02-12 15:10 | PC.NURSE ---
1300 HR elevated to 140-159 Dr Silveira notified. 1320 IV cardizem bolus given. Restarted gtt at 5mg/hr. No c/o pain at this time VSS
[2021-02-12 15:58] LABS: Glucose, Whole Blood 112 mg/dL (60-115)
[2021-02-12] MEDS: risperiDONE 2 MG TABLET 4 MG PO (20:15)
[2021-02-12 20:17] LABS: Glucose, Whole Blood 187 mg/dL (60-115)
[2021-02-12 20:33] LABS: Glucose, Whole Blood 194 mg/dL (60-115)
[2021-02-13] VITALS (8 sets, daily range): BP systolic 111–133; BP diastolic 63–78; PULSE 62–104; RESP 16–20; TEMP 36.3–37; O2SAT 96–99
[2021-02-13] MEDS: Levothyroxine Sodium 50 MCG TABLET PO (05:06)
--- NOTE | 2021-02-13 05:34 | PC.NURSE ---
pt on cardizem drip all shift running at 5mg/hr, pts heart rate dipping into the 60s this morning. md made aware drip paused at this time. will cont to monitor
[2021-02-13 06:27] LABS: MANUAL DIFF FLAG NO
[2021-02-13 06:46] LABS: Basophils Percent Auto 0.2 % (0-2); Eosinophils Absolute Auto 0.1 X10*3/uL (0.0-0.4); Eosinophils Percent Auto 1.4 % (0-4); Hematocrit 28.5 % (37-47); Hemoglobin 9.4 g/dl (12.0-16.0); Imm Gran Abs Auto 0.05 X10*3/uL (0.00-0.03); Imm Gran Pct Auto 0.8 % (0.0-0.4); Lymphocytes Percent Auto 16.6 % (20-40); Mean Corpuscular Hemoglobin 31.3 pg (27.0-33.0); Mean Platelet Volume 10.6 fL (9.4-12.3); Monocytes Absolute Auto 0.5 X10*3/uL (0.1-1.2); Monocytes Percent Auto 8.3 % (2-11); Neutrophils Absolute Auto 4.3 X10*3/uL (2.0-8.3); Neutrophils Percent Auto 72.7 % (45-73); Platelet Count 167 X10*3/uL (160-400); Red Cell Distribution Width 12.5 % (11.0-16.0); White Blood Count 5.9 X10*3/uL (4.8-10.8)
[2021-02-13 07:19] LABS: Alanine Aminotransferase 28 U/L (0-31); Albumin Level 3.3 g/dL (3.5-5.0); Alkaline Phosphatase 68 U/L (39-117); Anion Gap 15 (12-20); Aspartate Amino Transferase 18 U/L (5-31); Bilirubin Total 0.2 mg/dL (0.0-1.0); Blood Urea Nitrogen 62 mg/dL (9-16); Calcium 9.3 mg/dL (8.4-10.2); Carbon Dioxide 23 mmol/L (22-29); Chloride 108 mmol/L (96-108); Creatinine Clr Calc Pharmacy 21.7; Estimated Glomerular Filt Rate 20; Glucose Fasting 177 mg/dL (60-99); Potassium 4.8 mmol/L (3.3-5.1); Sodium 141 mmol/L (135-145); Total Protein 5.6 g/dL (6.5-8.0)
[2021-02-13 07:36] LABS: Glucose, Whole Blood 171 mg/dL (60-115)
[2021-02-13] MEDS: carvediloL 6.25 MG TABLET PO ×2 (07:54→20:18)
[2021-02-13] MEDS: risperiDONE 2 MG TABLET PO (07:54)
[2021-02-13] MEDS: Apixaban 5 MG TABLET PO ×2 (07:54→20:17)
[2021-02-13] MEDS: amLODIPine Besylate 10 MG TABLET PO (07:54)
[2021-02-13] MEDS: 0.9 % Sodium Chloride Flush 3 ML SYRINGE IVFLUSH (07:55)
[2021-02-13] MEDS: Insulin Lispro 100 UNIT/ML 3 ML VIAL SUBCUT ×2 (07:55→11:36)
[2021-02-13] MEDS: glipiZIDE 10 MG TABLET PO (07:57)
[2021-02-13] MEDS: dilTIAZem HCL CD 120 MG CAP.ER.DEG PO (07:59)
--- NOTE | 2021-02-13 11:02 | PM.PSYDC ---
DS: Providers Provider Date of Service: 02/11/21 Date of admission: 02/11/21 00:26 Date of discharge: 02/11/21 Primary care physician: Unknown Physician Attending physician on admission: Wili Betts Consults: 02/11/21 00:46 Consult to Cardiology Routine Consulting Provider: Christiano Mir Reason for consultation: new onset a flutter Has provider been notified: No 02/11/21 06:42 Consult to Psychiatry Routine Consulting Provider: Psych Covering Reason for consultation: pt transfer from [facility] Has provider been notified: No Attending physician on discharge: Kimberly Casas DS: Diagnosis Discharge Diagnosis (1) Atrial flutter with rapid ventricular response: Status: Acute (2) HTN (hypertension): Status: Chronic (3) Schizoaffective disorder, depressive type: Status: Chronic (4) Diabetes: Status: Chronic (5) Acute kidney injury superimposed on CKD: Status: Acute (6) CKD stage 4 due to type 1 diabetes mellitus: Status: Chronic DS: Medications Discharge Medications Home Medications: Home Medications Medication Instructions Recorded Confirmed amlodipine 10 mg tablet 1 tab PO DAILY 02/11/21 02/11/21 carvedilol 6.25 mg tablet 1 tab PO BID 02/11/21 02/11/21 glipizide 10 mg tablet 1 tab PO DAILY 02/11/21 02/11/21 levothyroxine 50 mcg tablet 1 tab PO DAILY 02/11/21 02/11/21 risperidone 4 mg tablet 2 mg PO DAILY 02/11/21 02/11/21 risperidone 4 mg tablet 4 mg PO BEDTIME 02/11/21 02/11/21 trazodone 50 mg tablet 1 tab PO BEDTIME 02/11/21 02/11/21 Mental Status Exam Mental Status Exam Narrative: not seen by racebook writer Data Data Completed and Pending Completed studies during hospitalization [Text1]: 02/11/21 02/11/21 02/11/21 00:49 04:06 04:06 WBC 6.0 RBC 2.84 L D Hgb 9.1 L D Hct 26.0 L D MCV 91.5 MCH 32.0 MCHC 35.0 RDW 11.9 Plt Count 144 L D MPV 10.4 Immature Gran % (Auto) 0.5 H Neut % (Auto) 78.4 H Lymph % (Auto) 12.3 L [place] % (Auto) 7.8 Eos % (Auto) 0.8 Baso % (Auto) 0.2 Lymph # (Auto) 0.7 L [place] # (Auto) 0.5 Eos # (Auto) 0.1 Baso # (Auto) 0.0 Abs Immat Gran (auto) 0.03 Absolute Neuts (auto) 4.7 Absolute Nucleated RBC 0.000 Nucleated RBC % (auto) 0.0 Sodium 133 L Potassium 4.3 Chloride 100 Carbon Dioxide 22 Anion Gap 15 BUN 69 H Creatinine 2.37 H Estim Creat Clear Calc 22.4 Estimated GFR 21 POC Glucose Random Glucose 243 H Fasting Glucose Calcium 8.7 Magnesium Total Bilirubin AST ALT Alkaline Phosphatase Troponin I High Sens 88.7 H* Total Protein Albumin TSH 2.91 Urine Color Urine Appearance Urine pH Ur Specific [place] Urine Protein Urine Glucose (UA) Urine Ketones Urine Blood Urine Nitrite Ur Leukocyte Esterase Urine RBC Urine WBC Ur Squamous Epith Cells Talc Crystals Urine Bacteria 02/11/21 02/11/21 02/11/21 04:06 07:08 11:06 WBC RBC Hgb Hct MCV MCH MCHC RDW Plt Count MPV Immature Gran % (Auto) Neut % (Auto) Lymph % (Auto) [place] % (Auto) Eos % (Auto) Baso % (Auto) Lymph # (Auto) [place] # (Auto) Eos # (Auto) Baso # (Auto) Abs Immat Gran (auto) Absolute Neuts (auto) Absolute Nucleated RBC Nucleated RBC % (auto) Sodium Potassium Chloride Carbon Dioxide Anion Gap BUN Creatinine Estim Creat Clear Calc Estimated GFR POC Glucose 219 H 251 H Random Glucose Fasting Glucose Calcium Magnesium Total Bilirubin AST ALT Alkaline Phosphatase Troponin I High Sens 95.7 H* Total Protein Albumin TSH Urine Color Urine Appearance Urine pH Ur Specific [place] Urine Protein Urine Glucose (UA) Urine Ketones Urine Blood Urine Nitrite Ur Leukocyte Esterase Urine RBC Urine WBC Ur Squamous Epith Cells Talc Crystals Urine Bacteria 02/11/21 02/11/21 02/11/21 12:51 16:01 19:48 WBC RBC Hgb Hct MCV MCH MCHC RDW Plt Count MPV Immature Gran % (Auto) Neut % (Auto) Lymph % (Auto) [place] % (Auto) Eos % (Auto) Baso % (Auto) Lymph # (Auto) [place] # (Auto) Eos # (Auto) Baso # (Auto) Abs Immat Gran (auto) Absolute Neuts (auto) Absolute Nucleated RBC Nucleated RBC % (auto) Sodium Potassium Chloride Carbon Dioxide Anion Gap BUN Creatinine Estim Creat Clear Calc Estimated GFR POC Glucose 168 H 238 H Random Glucose Fasting Glucose Calcium Magnesium Total Bilirubin AST ALT Alkaline Phosphatase Troponin I High Sens Total Protein Albumin TSH Urine Color STRAW Urine Appearance CLEAR Urine pH 6.0 Ur Specific [place] 1.010 Urine Protein 2+ H Urine Glucose (UA) 100 H Urine Ketones NEG Urine Blood NEG Urine Nitrite NEG Ur Leukocyte Esterase TRACE H Urine RBC 0-2 Urine WBC 1-4 Ur Squamous Epith Cells 1+ Talc Crystals 1+ Urine Bacteria TRACE 02/12/21 02/12/21 02/12/21 06:31 06:31 06:31 WBC 6.3 RBC 2.91 L Hgb 9.1 L Hct 26.8 L MCV 92.1 MCH 31.3 MCHC 34.0 RDW 12.2 Plt Count 159 L MPV 10.6 Immature Gran % (Auto) 0.8 H Neut % (Auto) 75.4 H Lymph % (Auto) 13.7 L [place] % (Auto) 8.3 Eos % (Auto) 1.6 Baso % (Auto) 0.2 Lymph # (Auto) 0.9 L [place] # (Auto) 0.5 Eos # (Auto) 0.1 Baso # (Auto) 0.0 Abs Immat Gran (auto) 0.05 H Absolute Neuts (auto) 4.8 Absolute Nucleated RBC 0.000 Nucleated RBC % (auto) 0.0 Sodium 139 Potassium 4.4 Chloride 107 Carbon Dioxide 25 Anion Gap 11 L BUN 63 H Creatinine 2.24 H Estim Creat Clear Calc 23.7 Estimated GFR 22 POC Glucose Random Glucose Fasting Glucose 173 H Calcium 9.3 D Magnesium 2.2 Total Bilirubin 0.2 AST 19 D ALT 29 Alkaline Phosphatase 70 D Troponin I High Sens 56.9 H* Total Protein 5.6 L Albumin 3.4 L TSH Urine Color Urine Appearance Urine pH Ur Specific [place] Urine Protein Urine Glucose (UA) Urine Ketones Urine Blood Urine Nitrite Ur Leukocyte Esterase Urine RBC Urine WBC Ur Squamous Epith Cells Talc Crystals Urine Bacteria 02/12/21 02/12/21 02/12/21 07:28 11:10 15:22 WBC RBC Hgb Hct MCV MCH MCHC RDW Plt Count MPV Immature Gran % (Auto) Neut % (Auto) Lymph % (Auto) [place] % (Auto) Eos % (Auto) Baso % (Auto) Lymph # (Auto) [place] # (Auto) Eos # (Auto) Baso # (Auto) Abs Immat Gran (auto) Absolute Neuts (auto) Absolute Nucleated RBC Nucleated RBC % (auto) Sodium Potassium Chloride Carbon Dioxide Anion Gap BUN Creatinine Estim Creat Clear Calc Estimated GFR POC Glucose 159 H 130 H 112 Random Glucose Fasting Glucose Calcium Magnesium Total Bilirubin AST ALT Alkaline Phosphatase Troponin I High Sens Total Protein Albumin TSH Urine Color Urine Appearance Urine pH Ur Specific [place] Urine Protein Urine Glucose (UA) Urine Ketones Urine Blood Urine Nitrite Ur Leukocyte Esterase Urine RBC Urine WBC Ur Squamous Epith Cells Talc Crystals Urine Bacteria 02/12/21 02/12/21 02/13/21 20:13 20:22 05:55 WBC 5.9 RBC 3.00 L Hgb 9.4 L Hct 28.5 L MCV 95.0 MCH 31.3 MCHC 33.0 RDW 12.5 Plt Count 167 MPV 10.6 Immature Gran % (Auto) 0.8 H Neut % (Auto) 72.7 Lymph % (Auto) 16.6 L [place] % (Auto) 8.3 Eos % (Auto) 1.4 Baso % (Auto) 0.2 Lymph # (Auto) 1.0 L [place] # (Auto) 0.5 Eos # (Auto) 0.1 Baso # (Auto) 0.0 Abs Immat Gran (auto) 0.05 H Absolute Neuts (auto) 4.3 Absolute Nucleated RBC 0.000 Nucleated RBC % (auto) 0.0 Sodium Potassium Chloride Carbon Dioxide Anion Gap BUN Creatinine Estim Creat Clear Calc Estimated GFR POC Glucose 187 H 194 H Random Glucose Fasting Glucose Calcium Magnesium Total Bilirubin AST ALT Alkaline Phosphatase Troponin I High Sens Total Protein Albumin TSH Urine Color Urine Appearance Urine pH Ur Specific [place] Urine Protein Urine Glucose (UA) Urine Ketones Urine Blood Urine Nitrite Ur Leukocyte Esterase Urine RBC Urine WBC Ur Squamous Epith Cells Talc Crystals Urine Bacteria 02/13/21 02/13/21 05:55 07:23 WBC RBC Hgb Hct MCV MCH MCHC RDW Plt Count MPV Immature Gran % (Auto) Neut % (Auto) Lymph % (Auto) [place] % (Auto) Eos % (Auto) Baso % (Auto) Lymph # (Auto) [place] # (Auto) Eos # (Auto) Baso # (Auto) Abs Immat Gran (auto) Absolute Neuts (auto) Absolute Nucleated RBC Nucleated RBC % (auto) Sodium 141 Potassium 4.8 Chloride 108 Carbon Dioxide 23 Anion Gap 15 BUN 62 H Creatinine 2.45 H Estim Creat Clear Calc 21.7 Estimated GFR 20 POC Glucose 171 H Random Glucose Fasting Glucose 177 H Calcium 9.3 Magnesium Total Bilirubin 0.2 AST 18 ALT 28 Alkaline Phosphatase 68 Troponin I High Sens Total Protein 5.6 L Albumin 3.3 L TSH Urine Color Urine Appearance Urine pH Ur Specific [place] Urine Protein Urine Glucose (UA) Urine Ketones Urine Blood Urine Nitrite Ur Leukocyte Esterase Urine RBC Urine WBC Ur Squamous Epith Cells Talc Crystals Urine Bacteria Imaging Diagnostic Imaging Impressions Chest X-Ray 02/11/21 00:37 IMPRESSION: No acute cardiopulmonary findings. DS: Summary Hospital Course Hospital Course: This is a 6-year-old female with past medical history of diabetes, hyperlipidemia, CKD stage 4, HTN, depression, schizoaffective disorder, HLD who was admitted to [facility] for of her schizoaffective disorder.? I received a call this evening from psychiatrist that patient EKG has been abnormal UA heart rate in the 140s as well as showing atrial flutter.? Patient reports that she has never had history of AFib or a flutter, on review of system she reports palpitations, no chest pain, no shortness of breath, no abdominal pain nausea or vomiting, no diarrhea constipation, no urinary symptoms and no lower extremity edema. Vitals Were taken and show a temp of 97.6?, heart rate of 143, respiratory rate of 18, blood pressure 128/80, satting 90% on room air Labs are significant for WBC count of 6.0, hemoglobin of 9.1, sodium of 133, BUN of 69, creatinine of 2.37 which improved from her admission creatinine of 3.66, and troponin of 45. EKG shows a flutter with variable AV block, left ventricular hypertrophy, has nonspecific ST T wave changes Patient was transferred to the floor for further management pt is a poor historian pt is a 60 yo female with hx of bipolar, CKD4 preparing for dialysis who presents for worsening depression, disorganized behavior and poor attention to ADLS in face of going off medication. -pt with psychomotor retardation and disorganized speech and behavior, dehydrated from poor PO intake and needing IV fluids to help treat Acute on CKD4; bUN/Cr returned to nearly baseline resolved with fluids -QT mildly prolonged at first; subsequent EKG shows returned to WnL pt improving with titration of Risperdal; more spontaneous, organized speech; more organized behavior; AH resolved PLAN: CV increased Risperdal to 4mg at bed continue risperdal 1mg AM was on IV fluids for acute on CKD4 which resolved; Nephrology consulted agrees pt no longer needs IV; encourage PO fluids Dr. 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 Kvng Garcia: -Levothyrozine 0.05mg 1 tab QD- last filled on 01/16 for 90 days -Carbidolol 6.25mg BID with meals- last filled on 01/16 for 90 days -Amlodipine Besylate 10mg QD- last filled 01/16 for 90 days -Glipizide 10mg QD- last filled 11/17 for [address] Isidra Santana: -Trazodone 50mg QHS- last filled on 01/10 for 90 days -Risperidone 4mg, ? tab QAM, 1 tab QHS- last filled 12/26/20 for 30 days -Oxcarbazepine 300mg 1 tab QAM; 2 tabs QHS- September 20 for 90 day supply Time Spent with Patient Time attestation: Total time spent providing and/or coordinating discharge services: Discharge Plan Discharge Patient Disposition: [facility] Referrals: Physician,Unknown J [Primary Care Provider] - 1 Week Discharge Medications: No Action carvedilol 6.25 mg tablet 1 tab PO BID RF: 0 trazodone 50 mg tablet 1 tab PO BEDTIME RF: 0 risperidone 4 mg tablet 2 mg PO DAILY RF: 0 risperidone 4 mg tablet 4 mg PO BEDTIME RF: 0 glipizide 10 mg tablet 1 tab PO DAILY RF: 0 amlodipine 10 mg tablet 1 tab PO DAILY RF: 0 levothyroxine 50 mcg tablet 1 tab PO DAILY RF: 0 Discharge Orders: Discharge Order (Routine); Ordered 02/13/21 Ordered By: Wili Betts Diet: advance to usual diet Activity on Discharge: As tolerated Stand Alone Forms: Patient Portal Discharge page
--- NOTE | 2021-02-13 11:10 | MHC.CM.PN ---
pt returning to [facility]
[2021-02-13 11:20] LABS: Glucose, Whole Blood 224 mg/dL (60-115)
--- NOTE | 2021-02-13 11:37 | PM.PNCARD ---
Subjective Subjective Date of Service: 02/13/21 Principal diagnosis: atrial flutter Interval history: cardiology follow up for atrial flutter. Seen at 1100. Today she is observed resting quietly in bed. She is awake and answers some questions. She does tell me that her mind is not working right . A full subjective exam is not possible at present. She has blank stare at times and not responding to all questions. Does not appear to be having any physical distress. Review of Systems Review of Systems as above Yes Unobtainable due to mental condition Physical Exam Vital Signs: Last Vital Signs Temp 97.3 F 02/13/21 11:24 Pulse 104 H 02/13/21 11:24 Resp 20 02/13/21 11:24 BP 123/63 02/13/21 11:24 Pulse Ox 98 02/13/21 11:24 Body Mass Index 20.6 Const General: cooperative, no acute distress, alert and awake Neck Neck: Yes normal visual inspection and Yes no JVD Resp Effort & Inspection: normal respiratory effort and not labored Auscultation: clear to auscultation bilaterally, no rales, no rhonchi and no wheezes Cardio Palpation: normal PMI Rate: regular rate Rhythm: abnormal rhythm Heart sounds: S1 normal heart sound present and S2 normal heart sound present GI Inspection: Yes normal to inspection Extrem General: Yes normal to inspection and No edema Results Labs and Meds Result diagrams: 02/13/21 05:55 02/13/21 05:55 Lab results: Laboratory Results - last 24 hr 02/12/21 02/12/21 02/12/21 11:10 15:22 20:13 WBC RBC Hgb Hct MCV MCH MCHC RDW Plt Count MPV Immature Gran % (Auto) Neut % (Auto) Lymph % (Auto) [place] % (Auto) Eos % (Auto) Baso % (Auto) Lymph # (Auto) [place] # (Auto) Eos # (Auto) Baso # (Auto) Abs Immat Gran (auto) Absolute Neuts (auto) Absolute Nucleated RBC Nucleated RBC % (auto) Sodium Potassium Chloride Carbon Dioxide Anion Gap BUN Creatinine Estim Creat Clear Calc Estimated GFR POC Glucose 130 H 112 187 H Fasting Glucose Calcium Total Bilirubin AST ALT Alkaline Phosphatase Total Protein Albumin 02/12/21 02/13/21 02/13/21 20:22 05:55 05:55 WBC 5.9 RBC 3.00 L Hgb 9.4 L Hct 28.5 L MCV 95.0 MCH 31.3 MCHC 33.0 RDW 12.5 Plt Count 167 MPV 10.6 Immature Gran % (Auto) 0.8 H Neut % (Auto) 72.7 Lymph % (Auto) 16.6 L [place] % (Auto) 8.3 Eos % (Auto) 1.4 Baso % (Auto) 0.2 Lymph # (Auto) 1.0 L [place] # (Auto) 0.5 Eos # (Auto) 0.1 Baso # (Auto) 0.0 Abs Immat Gran (auto) 0.05 H Absolute Neuts (auto) 4.3 Absolute Nucleated RBC 0.000 Nucleated RBC % (auto) 0.0 Sodium 141 Potassium 4.8 Chloride 108 Carbon Dioxide 23 Anion Gap 15 BUN 62 H Creatinine 2.45 H Estim Creat Clear Calc 21.7 Estimated GFR 20 POC Glucose 194 H Fasting Glucose 177 H Calcium 9.3 Total Bilirubin 0.2 AST 18 ALT 28 Alkaline Phosphatase 68 Total Protein 5.6 L Albumin 3.3 L 02/13/21 02/13/21 07:23 10:59 WBC RBC Hgb Hct MCV MCH MCHC RDW Plt Count MPV Immature Gran % (Auto) Neut % (Auto) Lymph % (Auto) [place] % (Auto) Eos % (Auto) Baso % (Auto) Lymph # (Auto) [place] # (Auto) Eos # (Auto) Baso # (Auto) Abs Immat Gran (auto) Absolute Neuts (auto) Absolute Nucleated RBC Nucleated RBC % (auto) Sodium Potassium Chloride Carbon Dioxide Anion Gap BUN Creatinine Estim Creat Clear Calc Estimated GFR POC Glucose 171 H 224 H Fasting Glucose Calcium Total Bilirubin AST ALT Alkaline Phosphatase Total Protein Albumin Progress Note: A&P Assessment and plan (1) Atrial flutter with rapid ventricular response: Status: Acute Assessment and Plan: New finding of atrial flutter this admit, noted on EKG 02/07. Tx from psychiatry to [facility] [place]. Unclear how long she has had atrial flutter. Asymptomatic. Echo shows EF 50-55%, mild decrease in RV systolic function, no valve abnormalities, atrial sizes normal. No heart failure. She has been treated for heart rate control using usual home Carvedilol and now on Diltiazem CD 120mg daily. Tele shows atrial flutter with rates averaging 80-100. She was started on Eliquis for anticoagulation, stroke risk reduction. She is stable for discharge from a cardiology perspective. She does have a pacemaker in place and should be following with Cardiology as outpt[place] [facility] [place] has been seen by Dr Davalos in the past. Recommend outpt cardiology follow up with him in 2 weeks. (2) New onset atrial flutter: Status: Acute (3) Elevated troponin: Status: Acute Assessment and Plan: Mild elevation of troponin after having aflutter with RVR. Elevation could be related to increased cardiac demand. No indication of Chest discomfort. No known CAD hx. Echo shows low normal EF and no reported WMA. Recommend outpt nuclear stress test to further eval for ischemia. (4) Schizoaffective disorder, depressive type: Status: Chronic Assessment and Plan: Followed by psychiatry. Fall Risk Details Current Medications: Current Medications Acetaminophen (Acetaminophen 325 Mg Tablet) 650 mg PO Q6H PRN PRN Reason: Pain, Mild (Pain Scale 1-3) Amlodipine Besylate (Amlodipine Besylate 10 Mg Tablet) 10 mg PO DAILY [facility]; Protocol Last Admin: 02/13/21 07:54 Dose: 10 mg Documented by: Apixaban (Apixaban 5 Mg Tablet) 5 mg PO BID HAROLDO Last Admin: 02/13/21 07:54 Dose: 5 mg Documented by: Carvedilol (Carvedilol 6.25 Mg Tablet) 6.25 mg PO BID [facility]; Protocol Last Admin: 02/13/21 07:54 Dose: 6.25 mg Documented by: Dextrose (Dextrose 50 % 25 Gm/50 Ml Vial) 25 gm IVPUSH Q15M PRN; Protocol PRN Reason: per Hypoglycemia Standing Ord. Diltiazem HCl (Diltiazem Hcl Cd 120 Mg Cap.Er.Deg) 120 mg PO DAILY [facility]; Protocol Last Admin: 02/13/21 07:59 Dose: 120 mg Documented by: Docusate Sodium (Docusate Sodium 100 Mg Capsule) 100 mg PO DAILY PRN PRN Reason: Constipation Glipizide (Glipizide 10 Mg Tablet) 10 mg PO DAILY [facility] Last Admin: 02/13/21 07:57 Dose: 10 mg Documented by: Glucose (Glucose Gel 15 Gm Gel..Gram.) 15 gm PO Q15M PRN; Protocol PRN Reason: per Hypoglycemia Standing Ord. Diltiazem HCl 125 mg/ Sodium (Chloride) 125 mls @ 0 mls/hr IVCONT .Q0M [facility]; Protocol Last Titration: 02/13/21 05:30 Dose: 0 mg/hr, 0 mls/hr Documented by: Insulin Human Lispro (Insulin Lispro 100 Unit/Ml 3 Ml Vial) 0 unit SUBCUT QIDACHS [facility]; Protocol Last Admin: 02/13/21 07:55 Dose: 2 unit Documented by: Levothyroxine Sodium (Levothyroxine Sodium 50 Mcg Tablet) 50 mcg PO DAILY@0600 [facility] Last Admin: 02/13/21 05:06 Dose: 50 mcg Documented by: Metoprolol Tartrate (Metoprolol Tartrate 5 Mg/5 Ml Vial) 5 mg IVPUSH Q6H PRN PRN Reason: HR>120 Last Admin: 02/11/21 00:30 Dose: 5 mg Documented by: Ondansetron HCl (Ondansetron Hcl 4 Mg/2 Ml Vial) 4 mg IVPUSH Q8H PRN PRN Reason: Nausea and Vomiting Risperidone (Risperidone 2 Mg Tablet) 2 mg PO DAILY [facility] Last Admin: 02/13/21 07:54 Dose: 2 mg Documented by: Risperidone (Risperidone 2 Mg Tablet) 4 mg PO BEDTIME [facility] Last Admin: 02/12/21 20:15 Dose: 4 mg Documented by: Sodium Chloride (0.9 % Sodium Chloride Flush 3 Ml Syringe) 3 ml IVFLUSH QSHIFT [facility] Last Admin: 02/13/21 07:55 Dose: 3 ml Documented by: Trazodone HCl (Trazodone Hcl 50 Mg Tablet) 50 mg PO BEDTIME PRN PRN Reason: Insomnia Last Admin: 02/11/21 21:56 Dose: 50 mg Documented by: Time Spent With Patient Time: Total time spent is greater than 50% in coordination of care (as documented) at patient's floor/unit and/or counseling patient: 24 Time with patient: 15 - 24 minutes Progress Note: Quality Stroke Does the patient have a stroke diagnosis?: No Procedures Date of Service Date of Service: 02/13/21
--- NOTE | 2021-02-13 15:00 | P.PNIM_ITS ---
Subjective Subjective Date of Service: 02/13/21 Interval History: Affect remains flat; minimal interaction. No acute distress Review of Systems Denies chest pain Denies shortness of breath Denies nausea vomiting diarrhea Physical Exam Vital Signs: Vital Signs: Last Vital Signs Temp 97.3 F 02/13/21 11:24 Pulse 104 H 02/13/21 11:24 Resp 20 02/13/21 11:24 BP 123/63 02/13/21 11:24 Pulse Ox 98 02/13/21 11:24 Body Mass Index 20.6 Const: Other: No acute issues HENMT: Other: Membranes moist pharynx clear Resp: Other: Clear to auscultation bilaterally. No rales rhonchi or wheezes Cardio: Other: No S4; positive S1-S2; no S3 murmurs of gallops. Irregularly irregular GI: Other: Soft nontender nondistended normoactive bowel sounds. No peritoneal signs Neuro: Other: Cranial nerves 2-12 grossly intact as tested. Motor is 5/5 all extremities; Sensation intact; cognition is appropriate affect is flat Extrem: Other: No edema Objective Data Active Medications Acetaminophen (Acetaminophen 325 Mg Tablet) 650 mg PO Q6H PRN PRN Reason: Pain, Mild (Pain Scale 1-3) Amlodipine Besylate (Amlodipine Besylate 10 Mg Tablet) 10 mg PO DAILY [facility]; Protocol Last Admin: 02/13/21 07:54 Dose: 10 mg Documented by: ANDRÉS Apixaban (Apixaban 5 Mg Tablet) 5 mg PO BID [facility] Last Admin: 02/13/21 07:54 Dose: 5 mg Documented by: ANDRÉS Carvedilol (Carvedilol 6.25 Mg Tablet) 6.25 mg PO BID [facility]; Protocol Last Admin: 02/13/21 07:54 Dose: 6.25 mg Documented by: ANDRÉS Dextrose (Dextrose 50 % 25 Gm/50 Ml Vial) 25 gm IVPUSH Q15M PRN; Protocol PRN Reason: per Hypoglycemia Standing Ord. Diltiazem HCl (Diltiazem Hcl Cd 120 Mg Cap.Er.Deg) 120 mg PO DAILY [facility]; Protocol Last Admin: 02/13/21 07:59 Dose: 120 mg Documented by: ANDRÉS Docusate Sodium (Docusate Sodium 100 Mg Capsule) 100 mg PO DAILY PRN PRN Reason: Constipation Glipizide (Glipizide 10 Mg Tablet) 10 mg PO DAILY [facility] Last Admin: 02/13/21 07:57 Dose: 10 mg Documented by: ANDRÉS Glucose (Glucose Gel 15 Gm Gel..Gram.) 15 gm PO Q15M PRN; Protocol PRN Reason: per Hypoglycemia Standing Ord. Diltiazem HCl 125 mg/ Sodium (Chloride) 125 mls @ 0 mls/hr IVCONT .Q0M [facility]; Protocol Last Titration: 02/13/21 05:30 Dose: 0 mg/hr, 0 mls/hr Documented by: LEEANNE Insulin Human Lispro (Insulin Lispro 100 Unit/Ml 3 Ml Vial) 0 unit SUBCUT QIDACHS [facility]; Protocol Last Admin: 02/13/21 11:36 Dose: 4 unit Documented by: ANDRÉS Levothyroxine Sodium (Levothyroxine Sodium 50 Mcg Tablet) 50 mcg PO DAILY@0600 [facility] Last Admin: 02/13/21 05:06 Dose: 50 mcg Documented by: LEEANNE Metoprolol Tartrate (Metoprolol Tartrate 5 Mg/5 Ml Vial) 5 mg IVPUSH Q6H PRN PRN Reason: HR>120 Last Admin: 02/11/21 00:30 Dose: 5 mg Documented by: ERINN Ondansetron HCl (Ondansetron Hcl 4 Mg/2 Ml Vial) 4 mg IVPUSH Q8H PRN PRN Reason: Nausea and Vomiting Risperidone (Risperidone 2 Mg Tablet) 2 mg PO DAILY [facility] Last Admin: 02/13/21 07:54 Dose: 2 mg Documented by: ANDRÉS Risperidone (Risperidone 2 Mg Tablet) 4 mg PO BEDTIME [facility] Last Admin: 02/12/21 20:15 Dose: 4 mg Documented by: АННА Sodium Chloride (0.9 % Sodium Chloride Flush 3 Ml Syringe) 3 ml IVFLUSH QSHIFT [facility] Last Admin: 02/13/21 07:55 Dose: 3 ml Documented by: ANDRÉS Trazodone HCl (Trazodone Hcl 50 Mg Tablet) 50 mg PO BEDTIME PRN PRN Reason: Insomnia Last Admin: 02/11/21 21:56 Dose: 50 mg Documented by: NAUMOC Labs CBC & Chem 7: 02/13/21 05:55 02/13/21 05:55 Labs: Laboratory Results - last 24 hr 02/12/21 02/12/21 02/12/21 15:22 20:13 20:22 MCV MCH MCHC RDW Plt Count MPV Immature Gran % (Auto) Neut % (Auto) Lymph % (Auto) [place] % (Auto) Eos % (Auto) Baso % (Auto) Lymph # (Auto) [place] # (Auto) Eos # (Auto) Baso # (Auto) Abs Immat Gran (auto) Absolute Neuts (auto) Absolute Nucleated RBC Nucleated RBC % (auto) Anion Gap Estim Creat Clear Calc Estimated GFR POC Glucose 112 187 H 194 H Fasting Glucose Calcium Total Bilirubin AST ALT Alkaline Phosphatase Total Protein Albumin 02/13/21 02/13/21 02/13/21 05:55 05:55 07:23 MCV 95.0 MCH 31.3 MCHC 33.0 RDW 12.5 Plt Count 167 MPV 10.6 Immature Gran % (Auto) 0.8 H Neut % (Auto) 72.7 Lymph % (Auto) 16.6 L [place] % (Auto) 8.3 Eos % (Auto) 1.4 Baso % (Auto) 0.2 Lymph # (Auto) 1.0 L [place] # (Auto) 0.5 Eos # (Auto) 0.1 Baso # (Auto) 0.0 Abs Immat Gran (auto) 0.05 H Absolute Neuts (auto) 4.3 Absolute Nucleated RBC 0.000 Nucleated RBC % (auto) 0.0 Anion Gap 15 Estim Creat Clear Calc 21.7 Estimated GFR 20 POC Glucose 171 H Fasting Glucose 177 H Calcium 9.3 Total Bilirubin 0.2 AST 18 ALT 28 Alkaline Phosphatase 68 Total Protein 5.6 L Albumin 3.3 L 02/13/21 10:59 MCV MCH MCHC RDW Plt Count MPV Immature Gran % (Auto) Neut % (Auto) Lymph % (Auto) [place] % (Auto) Eos % (Auto) Baso % (Auto) Lymph # (Auto) [place] # (Auto) Eos # (Auto) Baso # (Auto) Abs Immat Gran (auto) Absolute Neuts (auto) Absolute Nucleated RBC Nucleated RBC % (auto) Anion Gap Estim Creat Clear Calc Estimated GFR POC Glucose 224 H Fasting Glucose Calcium Total Bilirubin AST ALT Alkaline Phosphatase Total Protein Albumin Assessment and Plan (1) Schizoaffective disorder, depressive type: Status: Chronic (2) CKD stage 4 due to type 1 diabetes mellitus: Status: Chronic (3) Atrial flutter with rapid ventricular response: Status: Acute Assessment and Plan: 60-year-old female with past medical history of diabetes, hypertension, who was being managed at [facility] for schizoaffective disorder developed a flutter with rapid ventricular response and will be admitted to the floor for further management 1.New onset a flutter Cardizem drip off rate controlled on oral Cardizem. Continue Xarelto 2.DMII: Glipizide added back continue Continues sliding scale as ordered 3.Schizoaffective disorder Psychiatry consult and for return back to 5 4.CKD At baseline; continue follow 5. Hypertension Continue current therapies DVT prophylaxis: Xarelto Quality Stroke Does the patient have a stroke diagnosis?: No VTE Prior VTE?: No VTE Risk Level:: Medical - moderate - high VTE Device Contraindication: Treatment Not Indicated VTE Drug Contraindication: N/A - Med Ordered
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
--- NOTE | 2021-02-13 16:14 | P.DS_ITS ---
DS: Providers Provider Date of Service: 02/13/21 Date of admission: 02/11/21 00:26 Primary care physician: Unknown Physician Consults: 02/11/21 00:46 Consult to Cardiology Routine Consulting Provider: Christiano Mir Reason for consultation: new onset a flutter Has provider been notified: No 02/11/21 06:42 Consult to Psychiatry Routine Consulting Provider: Psych Covering Reason for consultation: pt transfer from [facility] Has provider been notified: No 02/13/21 13:55 Consult to Psychiatry Routine Consulting Provider: Psych Covering Reason for consultation: Return to ..medically suitable at this time DS: Diagnosis Discharge Diagnosis (1) Schizoaffective disorder, depressive type: Status: Chronic (2) CKD stage 4 due to type 1 diabetes mellitus: Status: Chronic (3) Atrial flutter with rapid ventricular response: Status: Acute DS: Summary Hospital Course Hospital Course: This is a 60-year-old female with past medical history of diabetes, hyperlipidemia, CKD stage 4, HTN, depression, schizoaffective disorder, HLD who was admitted to [facility] for of her schizoaffective disorder; admitted to Medicine for new onset a flutter Hospital course Admitted to telemetry and placed on a Cardizem drip. Consult placed to cardiology who came saw patient and reviewed outpatient echo. She remained on the for 48 hours on day of discharge she was switched to p.o. Cardizem without issue. She will maintain and Cardizem CD 120 and follow-up as an outpatient with her PCP and electronic funds transfer coordinator. She was seen by behavioral health 02/13/2021 and admitted to [facility] psychiatric unit Time Spent with Patient Time attestation: Total time spent providing and/or coordinating discharge services: Discharge coordination time: Greater than 30 minutes Quality: Stroke Does the patient have a stroke diagnosis?: No Physical Exam Vital Signs: Vital Signs: Last Vital Signs Temp 98.3 F 02/13/21 15:03 Pulse 102 H 02/13/21 15:03 Resp 16 02/13/21 15:03 BP 111/65 02/13/21 15:03 Pulse Ox 98 02/13/21 15:03 Body Mass Index 20.6 Const: Other: No acute issues HENMT: Other: Membranes moist pharynx clear Resp: Other: Clear to auscultation bilaterally. No rales rhonchi or wheezes Cardio: Other: No S4; positive S1-S2; no S3 murmurs of gallops. Irregularly irregular GI: Other: Soft nontender nondistended normoactive bowel sounds. No peritoneal signs Neuro: Other: Cranial nerves 2-12 grossly intact as tested. Motor is 5/5 all extremities; Sensation intact; cognition is appropriate affect is flat Extrem: Other: No edema DS: Data Data Completed and Pending Labs on day of discharge: Laboratory Results - last 24 hr 02/12/21 02/12/21 02/13/21 20:13 20:22 05:55 WBC 5.9 RBC 3.00 L Hgb 9.4 L Hct 28.5 L MCV 95.0 MCH 31.3 MCHC 33.0 RDW 12.5 Plt Count 167 MPV 10.6 Immature Gran % (Auto) 0.8 H Neut % (Auto) 72.7 Lymph % (Auto) 16.6 L [place] % (Auto) 8.3 Eos % (Auto) 1.4 Baso % (Auto) 0.2 Lymph # (Auto) 1.0 L [place] # (Auto) 0.5 Eos # (Auto) 0.1 Baso # (Auto) 0.0 Abs Immat Gran (auto) 0.05 H Absolute Neuts (auto) 4.3 Absolute Nucleated RBC 0.000 Nucleated RBC % (auto) 0.0 Sodium Potassium Chloride Carbon Dioxide Anion Gap BUN Creatinine Estim Creat Clear Calc Estimated GFR POC Glucose 187 H 194 H Fasting Glucose Calcium Total Bilirubin AST ALT Alkaline Phosphatase Total Protein Albumin 02/13/21 02/13/21 02/13/21 05:55 07:23 10:59 WBC RBC Hgb Hct MCV MCH MCHC RDW Plt Count MPV Immature Gran % (Auto) Neut % (Auto) Lymph % (Auto) [place] % (Auto) Eos % (Auto) Baso % (Auto) Lymph # (Auto) [place] # (Auto) Eos # (Auto) Baso # (Auto) Abs Immat Gran (auto) Absolute Neuts (auto) Absolute Nucleated RBC Nucleated RBC % (auto) Sodium 141 Potassium 4.8 Chloride 108 Carbon Dioxide 23 Anion Gap 15 BUN 62 H Creatinine 2.45 H Estim Creat Clear Calc 21.7 Estimated GFR 20 POC Glucose 171 H 224 H Fasting Glucose 177 H Calcium 9.3 Total Bilirubin 0.2 AST 18 ALT 28 Alkaline Phosphatase 68 Total Protein 5.6 L Albumin 3.3 L Discharge Plan Discharge Patient Disposition: Xfer Acute Care Hospital Discharge Diagnosis: schizoaffective disorder, depressed type Referrals: m5 [Other] - 1 Week Physician,Unknown J [Primary Care Provider] - 1 Week Discharge Medications: New Eliquis 5 mg Tablet 5 mg PO BID Qty: 0 RF: 0 diltiazem HCl [Cardizem CD] 120 mg Capsule,Extended Release 24hr 120 mg PO DAILY Qty: 0 RF: 0 dextrose [Glutose-15] 40 % Gel 15 g PO Q15M PRN (Reason: Per Hypoglycemia Standing Ord.) Qty: 0 RF: 0 dextrose 50 % in water (D50W) Parenteral Solution 25 g IVPUSH Q15M PRN (Reason: Per Hypoglycemia Standing Ord.) Qty: 0 RF: 0 sodium chloride 0.9 % (flush) [BD PosiFlush Normal Saline 0.9] Syringe 3 ml IVFLUSH QSHIFT Qty: 0 RF: 0 insulin lispro [Humalog U-100 Insulin] 100 unit/mL Solution See Protocol unit subcut QIDACHS Qty: 0 RF: 0 risperidone 2 mg Tablet 2 mg PO DAILY Qty: 0 RF: 0 Continued carvedilol 6.25 mg tablet 1 tab PO BID RF: 0 trazodone 50 mg tablet 1 tab PO BEDTIME RF: 0 risperidone 4 mg tablet 2 mg PO DAILY RF: 0 risperidone 4 mg tablet 4 mg PO BEDTIME RF: 0 glipizide 10 mg tablet 1 tab PO DAILY RF: 0 amlodipine 10 mg tablet 1 tab PO DAILY RF: 0 levothyroxine 50 mcg tablet 1 tab PO DAILY RF: 0 Discharge Orders: Discharge Order (Routine); Ordered 02/13/21 Ordered By: Wili Betts Diet: advance to usual diet Activity on Discharge: As tolerated Stand Alone Forms: Patient Portal Discharge page Care Plan Goals: DISCHARGED M5 ON 02/12/21 Health Concerns: DISCHARGED M5 ON 02/12/21 Plan of Treatment: DISCHARGED M5 ON 02/12/21 Assessment: DISCHARGED M5 ON 02/12/21
[2021-02-13 16:17] LABS: Glucose, Whole Blood 96 mg/dL (60-115)
[2021-02-13] MEDS: risperiDONE 2 MG TABLET 4 MG PO (20:18)
[2021-02-13 20:27] LABS: Glucose, Whole Blood 149 mg/dL (60-115)
== END 2021-02-13 21:51 | disposition short-term general hospital (02) | DRG 309 ==
PROVIDERS: Admitting Provider Internal Medicine; PCP Internal Medicine; Visit Provider Hospitalist
DX: I48.92 Unspecified atrial flutter (principal); N18.4 Chronic kidney disease, stage 4 (severe); I12.9 Hypertensive chronic kidney disease with stage 1 through stage 4 chronic kidney disease, or unspecified chronic kidney disease; E10.22 Type 1 diabetes mellitus with diabetic chronic kidney disease; E78.5 Hyperlipidemia, unspecified; F25.1 Schizoaffective disorder, depressive type; Z95.0 Presence of cardiac pacemaker; Z79.4 Long term (current) use of insulin; Z79.01 Long term (current) use of anticoagulants; Z79.890 Hormone replacement therapy; Z79.899 Other long term (current) drug therapy
CPT/HCPCS: 36415; 71045; 80048; 80053; 81001; 81003; 82947; 83735; 84443; 84484; 85025; 93005; 93306

== ENCOUNTER 2021-02-13 21:53 | Inpatient (IN) | payer MEDICARE, BC, SELFPAY ==
[2021-02-13 22:48] VITALS: BP 133/61; PULSE 58; TEMP 36.9; O2SAT 98
[2021-02-13] MEDS: traZODone HCL 50 MG TABLET PO (22:51)
--- NOTE | 2021-02-14 04:05 | PC.ADMIT ---
Pt is a 60 year old female who was transferred to [facility] [place] for medical treatment. Pt originally came to presenting with delusions, not eating or sleeping and non-compliant with medications. She reported that she does not have any SI/HI. When asked about AVH she took a long pause and did not respond staring blankly - sighing (thought-blocking). Her responses to questions were very limited. Responding yes or no to questions or not respond at all. However, she did communicate that she would like Trazadone for sleep which tends to help her at night. Declined to sign any legals/documentation. CV was signed. Placed on 15 minute checks. Medically cleared. Doc-Doc completed. Vitals WNL.
[2021-02-14 04:15] VITALS: BP 148/73; PULSE 147; RESP 18; TEMP 36.5; O2SAT 100
[2021-02-14 06:00] VITALS: BP 132/76; PULSE 76; TEMP 36.2; O2SAT 99
[2021-02-14 06:45] LABS: Glucose, Whole Blood 150 mg/dL (60-115)
[2021-02-14 12:15] LABS: Glucose, Whole Blood 275 mg/dL (60-115)
[2021-02-14] MEDS: Levothyroxine Sodium 50 MCG TABLET PO (13:03)
[2021-02-14] MEDS: LORazepam 1 MG TABLET PO (13:03)
[2021-02-14 17:55] LABS: Glucose, Whole Blood 209 mg/dL (60-115)
[2021-02-14 21:21] VITALS: BP 109/58; PULSE 58
[2021-02-14] MEDS: carvediloL 6.25 MG TABLET PO (21:21)
[2021-02-14] MEDS: Apixaban 5 MG TABLET PO (21:22)
[2021-02-14 21:39] LABS: Glucose, Whole Blood 251 mg/dL (60-115)
[2021-02-15 06:00] VITALS: BP 114/64; PULSE 95; TEMP 36.1; O2SAT 96
[2021-02-15] MEDS: Levothyroxine Sodium 50 MCG TABLET PO (06:19)
[2021-02-15 06:50] LABS: Glucose, Whole Blood 162 mg/dL (60-115)
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
[2021-02-15] MEDS: Apixaban 5 MG TABLET PO ×2 (10:22→20:52)
[2021-02-15] MEDS: dilTIAZem HCL CD 120 MG CAP.ER.DEG PO (10:22)
[2021-02-15] MEDS: carvediloL 6.25 MG TABLET PO ×2 (10:22→20:52)
[2021-02-15] MEDS: clonazePAM 0.5 MG TABLET PO ×2 (10:23→20:53)
[2021-02-15] MEDS: glipiZIDE 10 MG TABLET PO (10:23)
[2021-02-15 10:24] VITALS: BP 100/62; PULSE 143
[2021-02-15] MEDS: amLODIPine Besylate 10 MG TABLET PO (10:24)
[2021-02-15 12:06] LABS: Glucose, Whole Blood 200 mg/dL (60-115)
--- NOTE | 2021-02-15 12:10 | P.PNPSI_ITS ---
Subjective Subjective Date of Service: 02/15/21 Reason For Visit: Depression Interim History: Patient doing a little better today. She says so herself. She remains with significant speech latency and mostly answers with only yes or no, however, she is up out of bed, dressed in casual clothes and sitting in the milieu doing an art project. She says that the auditory hallucinations remain but are less. Truss Designer discussed restarting her mood stabilizer Trileptal which she agrees to do. No SI or HI Later in the day patient was standing in the doorway of her room, looking at the wall and not moving much. Mental Status Exam Mental Status Exam Narrative: Pt is alert to person, place and situation; pt sitting in day room; she remains only using few words, but is cooperative; dressed in appropriately in casual cloths, but unkempt hair; mood is depressed and affect blunted; minimal eye contact; significant Speech latency; when speaks, it's with a slowed rate though normal volume; remains with significant psychomotor retardation present; thought process can be goal oriented; very concrete; Thought vacous; no delusional thinking expressed but recent paranoid ideations; denies any SI/HI. Intrusive AH but less intense then yesterday;? Patients insight and judgment impaired. Diagnostics Vital Signs (24Hr): Vital Signs - 24 hr 02/14/21 21:21 02/15/21 06:00 02/15/21 10:24 Temperature 97.0 F Pulse Rate 58 95 143 H Blood Pressure 109/58 L 114/64 100/62 Pulse Oximetry 96 Labs Labs: Laboratory Results - last 48 hr 02/14/21 02/14/21 02/14/21 06:40 12:10 17:51 POC Glucose 150 H 275 H 209 H 02/14/21 02/15/21 02/15/21 21:33 06:41 12:01 POC Glucose 251 H 162 H 200 H Medications Medications Current Medications Acetaminophen (Acetaminophen 325 Mg Tablet) 650 mg PO Q6H PRN PRN Reason: Headache/Pain Mild Scale (1-3) Al Hydroxide/Mg Hydroxide (Magnesium Hydrox/Alum Hydrox 30 Ml Oral.Susp) 30 ml PO Q6H PRN PRN Reason: Heartburn/Nausea Amlodipine Besylate (Amlodipine Besylate 10 Mg Tablet) 10 mg PO DAILY [facility]; Protocol Last Admin: 02/15/21 10:24 Dose: 10 mg Documented by: Apixaban (Apixaban 5 Mg Tablet) 5 mg PO BID [facility] Last Admin: 02/15/21 10:22 Dose: 5 mg Documented by: Carvedilol (Carvedilol 6.25 Mg Tablet) 6.25 mg PO BID [facility]; Protocol Last Admin: 02/15/21 10:22 Dose: 6.25 mg Documented by: Clonazepam (Clonazepam 0.5 Mg Tablet) 0.5 mg PO BID [facility] Last Admin: 02/15/21 10:23 Dose: 0.5 mg Documented by: Diltiazem HCl (Diltiazem Hcl Cd 120 Mg Cap.Er.Deg) 120 mg PO DAILY [facility]; Protocol Last Admin: 02/15/21 10:22 Dose: 120 mg Documented by: Glipizide (Glipizide 10 Mg Tablet) 10 mg PO DAILY@0730 [facility] Last Admin: 02/15/21 10:23 Dose: 10 mg Documented by: Hydroxyzine HCl (Hydroxyzine Hcl 25 Mg Tablet) 25 mg PO BEDTIME PRN PRN Reason: Anxiety Levothyroxine Sodium (Levothyroxine Sodium 50 Mcg Tablet) 50 mcg PO DAILY@0600 [facility] Last Admin: 02/15/21 06:19 Dose: 50 mcg Documented by: Magnesium Hydroxide (Milk Of Magnesia 30 Ml Oral.Susp) 30 ml PO DAILY PRN PRN Reason: Constipation Risperidone (Risperidone 2 Mg Tablet) 4 mg PO BEDTIME [facility] Risperidone (Risperidone 2 Mg Tablet) 2 mg PO DAILY [facility] Trazodone HCl (Trazodone Hcl 50 Mg Tablet) 50 mg PO BEDTIME PRN PRN Reason: Insomnia Last Admin: 02/13/21 22:51 Dose: 50 mg Documented by: Allergies Allergies Allergy/AdvReac Type Severity Reaction Status Date / Time No Known Allergies Allergy Unverified 02/06/21 22:26 Assessment & Plan Assessment & Plan (1) Schizoaffective disorder, depressive type: Status: Chronic Code(s): F25.1 - Schizoaffective disorder, depressive type (2) CKD stage 4 due to type 1 diabetes mellitus: Status: Chronic Code(s): E10.22 - Type 1 diabetes mellitus with diabetic chronic kidney disease; N18.4 - Chronic kidney disease, stage 4 (severe) (3) Atrial flutter with rapid ventricular response: Status: Acute Code(s): I48.92 - Unspecified atrial flutter (4) Hypothyroidism: Status: Acute Code(s): E03.9 - Hypothyroidism, unspecified (5) Diabetes: Status: Chronic Code(s): E11.9 - Type 2 diabetes mellitus without complications (6) HTN (hypertension): Status: Chronic Code(s): I10 - Essential (primary) hypertension Assessment and Plan: IMPRESSION: Thu is a 60 yo female with hx of bipolar, 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 On unit, she spoke very little, was confused, had blunted affect, AH and significant speech latency and psychomotor retardation. She was was treated for dehydration with IV fluids and restarted on Risperdal to good effect as patient became more organized, brighter affect, talking spontaneously and eventually out and about in milue saying AH had resolved. Pt however developed Atrial Flutter and was admitted to medical floor for treatment and started on cardizem and eventually medically cleared. On medical floor She was continued on Risperdal however, she regressed some and now Re-presents for Admission to for continued psychotic symptoms, disorganized thinking, AH, aga in with blunted affect, significant speech latency and psychomotor retardation. -patient does not appear catatonic; however she did seem to feel little better with Ativan; will start clonazepam b.i.d. for now since it is longer acting Hospital course/decision making: on admission Patient mostly gives one-word answers of yes or no. She had the most voice inflection when saying yes to having intrusive auditory hallucinations that were causing her to be confused, distracted and making it hard to talk. Patient did ask for Ativan for racing thoughts saying it has helped her in the past; patient could not elaborate on specifics of racing thoughts saying ?I do not know. ? Patient denies SI and HI. She said she remembers feeling a little better on the psych unit before she left for the medical floor and agreed she feels worse now. She asked if her heart rate was better and aligner typewriter explained treatment. -02/15 patient out of bed dressed in casual clothing; still with speech latency, psychomotor retardation and blunted affect, however auditory hallucinations less intense; will restart Trileptal PLAN: Patient on CV Q 15 minutes checks START Clonazepam 0.5mg BID for anxiety related to psychotic symptoms RESTART trileptal 300 mg b.i.d.; (will likely titrate to home dose: 600 mg QHS and 300 mg QAM) continue Risperdal 2 mg a.m. Continue Risperdal 4 mg at bedtime Continue amlodipine, apixaban, carvedilol, diltiazem, glipizide Continue Insulin sliding scale Continue levothyroxine Continue trazodone p.r.n. I spent minutes with the patient and/or on the patient floor today, greater than?50% of which was spent counseling/coordinating care. Reason for contiued inpatient stay Substantial Risk for: inability to function, rapid decompensation and med/psych decompensation
[2021-02-15 17:52] LABS: Glucose, Whole Blood 128 mg/dL (60-115)
[2021-02-15 20:52] VITALS: BP 104/69; PULSE 129
[2021-02-15] MEDS: OXcarbazepine 300 MG TABLET PO (20:52)
[2021-02-15 20:56] VITALS: BP 104/69; PULSE 129; RESP 16; TEMP 36.4; O2SAT 100
[2021-02-15 21:25] LABS: Glucose, Whole Blood 277 mg/dL (60-115)
[2021-02-16 06:54] LABS: Glucose, Whole Blood 154 mg/dL (60-115)
[2021-02-16] MEDS: Levothyroxine Sodium 50 MCG TABLET PO (07:05)
[2021-02-16 08:38] VITALS: BP 112/83; PULSE 120
[2021-02-16] MEDS: dilTIAZem HCL CD 120 MG CAP.ER.DEG PO (08:38)
[2021-02-16] MEDS: carvediloL 6.25 MG TABLET PO ×2 (08:38→20:52)
[2021-02-16 08:39] VITALS: BP 112/83; PULSE 120
[2021-02-16] MEDS: OXcarbazepine 300 MG TABLET PO ×2 (08:39→20:52)
[2021-02-16] MEDS: Apixaban 5 MG TABLET PO ×2 (08:39→20:52)
[2021-02-16] MEDS: clonazePAM 0.5 MG TABLET PO ×2 (08:39→20:52)
[2021-02-16] MEDS: glipiZIDE 10 MG TABLET PO (08:39)
[2021-02-16] MEDS: amLODIPine Besylate 10 MG TABLET PO (08:39)
[2021-02-16 17:15] LABS: Glucose, Whole Blood 118 mg/dL (60-115)
--- NOTE | 2021-02-16 18:01 | HO.PSYCHPN ---
Subjective Subjective Date of Service: 02/16/21 Reason For Visit: Depression Interim History: Patient reports that she has a little better she remains with speech latency, blunted affect and psychomotor retardation. She does say that auditory hallucinations have resolved. She says it is still hard to talk but says she does not know why. Patient denies any SI or HI. She agrees to continuing to increase Trileptal to which she says ?thank you. ? Mental Status Exam Mental Status Exam Narrative: Pt is alert to person, place and situation; in bed, awake; she remains only using few words, but is cooperative; dressed in appropriately in casual cloths, but unkempt hair; mood is depressed and affect blunted; minimal eye contact; significant Speech latency; when speaks, it's with a slowed rate though normal volume; remains with significant psychomotor retardation present; thought process can be goal oriented; very concrete; Thought vacous; no delusional thinking expressed but recent paranoid ideations; denies any SI/HI. Intrusive AH but less intense then yesterday;? Patients insight and judgment impaired. Diagnostics Vital Signs (24Hr): Vital Signs - 24 hr 02/15/21 20:52 02/15/21 20:56 02/16/21 08:38 Temperature 97.6 F Pulse Rate 129 H 129 H 120 H Respiratory Rate 16 Blood Pressure 104/69 104/69 112/83 Pulse Oximetry 100 02/16/21 08:39 Temperature Pulse Rate 120 H Respiratory Rate Blood Pressure 112/83 Pulse Oximetry Labs Labs: Laboratory Results - last 48 hr 02/14/21 02/15/21 02/15/21 21:33 06:41 12:01 POC Glucose 251 H 162 H 200 H 02/15/21 02/15/21 02/16/21 17:48 21:17 06:50 POC Glucose 128 H 277 H 154 H 02/16/21 16:59 POC Glucose 118 H Medications Medications Current Medications Acetaminophen (Acetaminophen 325 Mg Tablet) 650 mg PO Q6H PRN PRN Reason: Headache/Pain Mild Scale (1-3) Al Hydroxide/Mg Hydroxide (Magnesium Hydrox/Alum Hydrox 30 Ml Oral.Susp) 30 ml PO Q6H PRN PRN Reason: Heartburn/Nausea Amlodipine Besylate (Amlodipine Besylate 10 Mg Tablet) 10 mg PO DAILY [facility]; Protocol Last Admin: 02/16/21 08:39 Dose: 10 mg Documented by: Apixaban (Apixaban 5 Mg Tablet) 5 mg PO BID [facility] Last Admin: 02/16/21 08:39 Dose: 5 mg Documented by: Carvedilol (Carvedilol 6.25 Mg Tablet) 6.25 mg PO BID [facility]; Protocol Last Admin: 02/16/21 08:38 Dose: 6.25 mg Documented by: Clonazepam (Clonazepam 0.5 Mg Tablet) 0.5 mg PO BID [facility] Last Admin: 02/16/21 08:39 Dose: 0.5 mg Documented by: Diltiazem HCl (Diltiazem Hcl Cd 120 Mg Cap.Er.Deg) 120 mg PO DAILY [facility]; Protocol Last Admin: 02/16/21 08:38 Dose: 120 mg Documented by: Glipizide (Glipizide 10 Mg Tablet) 10 mg PO DAILY@0730 [facility] Last Admin: 02/16/21 08:39 Dose: 10 mg Documented by: Hydroxyzine HCl (Hydroxyzine Hcl 25 Mg Tablet) 25 mg PO BEDTIME PRN PRN Reason: Anxiety Levothyroxine Sodium (Levothyroxine Sodium 50 Mcg Tablet) 50 mcg PO DAILY@0600 [facility] Last Admin: 02/16/21 07:05 Dose: 50 mcg Documented by: Magnesium Hydroxide (Milk Of Magnesia 30 Ml Oral.Susp) 30 ml PO DAILY PRN PRN Reason: Constipation Oxcarbazepine (Oxcarbazepine 300 Mg Tablet) 300 mg PO BID [facility] Last Admin: 02/16/21 08:39 Dose: 300 mg Documented by: Risperidone (Risperidone 2 Mg Tablet) 4 mg PO BEDTIME [facility] Risperidone (Risperidone 2 Mg Tablet) 2 mg PO DAILY [facility] Trazodone HCl (Trazodone Hcl 50 Mg Tablet) 50 mg PO BEDTIME PRN PRN Reason: Insomnia Last Admin: 02/13/21 22:51 Dose: 50 mg Documented by: Allergies Allergies Allergy/AdvReac Type Severity Reaction Status Date / Time No Known Allergies Allergy Unverified 02/06/21 22:26 Assessment & Plan Assessment & Plan (1) Schizoaffective disorder, depressive type: Status: Chronic Code(s): F25.1 - Schizoaffective disorder, depressive type (2) CKD stage 4 due to type 1 diabetes mellitus: Status: Chronic Code(s): E10.22 - Type 1 diabetes mellitus with diabetic chronic kidney disease; N18.4 - Chronic kidney disease, stage 4 (severe) (3) Atrial flutter with rapid ventricular response: Status: Acute Code(s): I48.92 - Unspecified atrial flutter (4) Hypothyroidism: Status: Acute Code(s): E03.9 - Hypothyroidism, unspecified (5) Diabetes: Status: Chronic Code(s): E11.9 - Type 2 diabetes mellitus without complications (6) HTN (hypertension): Status: Chronic Code(s): I10 - Essential (primary) hypertension Assessment and Plan: IMPRESSION: Thu is a 60 yo female with hx of bipolar, 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 On unit, she spoke very little, was confused, had blunted affect, AH and significant speech latency and psychomotor retardation. She was was treated for dehydration with IV fluids and restarted on Risperdal to good effect as patient became more organized, brighter affect, talking spontaneously and eventually out and about in [place] saying AH had resolved. Pt however developed Atrial Flutter and was admitted to medical floor for treatment and started on cardizem and eventually medically cleared. On medical floor She was continued on Risperdal however, she regressed some and now Re-presents for Admission to for continued psychotic symptoms, disorganized thinking, AH, again with blunted affect, significant speech latency and psychomotor retardation. -patient does not appear catatonic; however she did seem to feel little better with Ativan; will start clonazepam b.i.d. for now since it is longer acting Hospital course/decision making: on admission Patient mostly gives one-word answers of yes or no. She had the most voice inflection when saying yes to having intrusive auditory hallucinations that were causing her to be confused, distracted and making it hard to talk. Patient did ask for Ativan for racing thoughts saying it has helped her in the past; patient could not elaborate on specifics of racing thoughts saying ?I do not know. ? Patient denies SI and HI. She said she remembers feeling a little better on the psych unit before she left for the medical floor and agreed she feels worse now. She asked if her heart rate was better and functional tester typewriters explained treatment. 02/15 - patient out of bed dressed in casual clothing; still with speech latency, psychomotor retardation and blunted affect, however auditory hallucinations less intense; will restart Trileptal and titrate PLAN: Patient on CV Q 15 minutes checks Clonazepam 0.5mg BID for anxiety related to psychotic symptoms Continue trileptal 300 mg b.i.d. until 02/17 STARTING 02/18 INCREASE TO Trileptal 600 mg QHS and 300 mg QAM) continue Risperdal 2 mg a.m. Continue Risperdal 4 mg at bedtime Continue amlodipine, apixaban, carvedilol, diltiazem, glipizide Continue Insulin sliding scale Continue levothyroxine Continue trazodone p.r.n. I spent minutes with the patient and/or on the patient floor today, greater than?50% of which was spent counseling/coordinating care. Reason for contiued inpatient stay Substantial Risk for: inability to function
[2021-02-16 20:13] VITALS: BP 109/60; PULSE 75; RESP 16; TEMP 36.2; O2SAT 100
[2021-02-16 20:16] LABS: Glucose, Whole Blood 152 mg/dL (60-115)
[2021-02-16 20:52] VITALS: BP 109/60; PULSE 75
[2021-02-17 06:00] VITALS: BP 118/59; PULSE 66; RESP 16; TEMP 36.4; O2SAT 99
[2021-02-17] MEDS: Levothyroxine Sodium 50 MCG TABLET PO (06:33)
[2021-02-17] MEDS: glipiZIDE 10 MG TABLET PO (06:33)
[2021-02-17 06:43] LABS: Glucose, Whole Blood 115 mg/dL (60-115)
[2021-02-17 09:55] VITALS: BP 109/72; PULSE 94; RESP 18; O2SAT 96
[2021-02-17] MEDS: OXcarbazepine 300 MG TABLET PO ×2 (09:55→22:26)
[2021-02-17 09:56] VITALS: BP 109/72; PULSE 95; PULSE 96
[2021-02-17] MEDS: carvediloL 6.25 MG TABLET PO ×2 (09:56→22:25)
[2021-02-17] MEDS: amLODIPine Besylate 10 MG TABLET PO (09:56)
[2021-02-17] MEDS: dilTIAZem HCL CD 120 MG CAP.ER.DEG PO (09:56)
[2021-02-17] MEDS: Apixaban 5 MG TABLET PO ×2 (09:56→22:26)
[2021-02-17] MEDS: clonazePAM 0.5 MG TABLET PO ×2 (09:56→22:25)
[2021-02-17 11:15] LABS: Glucose, Whole Blood 231 mg/dL (60-115)
[2021-02-17] MEDS: Acetaminophen 325 MG TABLET 650 MG PO (15:24)
[2021-02-17 18:00] VITALS: BP 113/85; PULSE 95; RESP 16; TEMP 36.6; O2SAT 99
[2021-02-17 22:25] VITALS: BP 111/53; PULSE 68
[2021-02-18] MEDS: Levothyroxine Sodium 50 MCG TABLET PO (05:49)
[2021-02-18] MEDS: glipiZIDE 10 MG TABLET PO (05:49)
[2021-02-18 06:00] VITALS: BP 106/54; PULSE 72; TEMP 36.3; O2SAT 97
[2021-02-18 06:21] LABS: Glucose, Whole Blood 137 mg/dL (60-115)
--- NOTE | 2021-02-18 08:38 | HO.PSYCHPN ---
Subjective Subjective Date of Service: 02/17/21 Reason For Visit: Depression Interim History: 02/16:Patient reports that she has a little better she remains with speech latency, blunted affect and psychomotor retardation. She does say that auditory hallucinations have resolved. She says it is still hard to talk but says she does not know why. Patient denies any SI or HI. She agrees to continuing to increase Trileptal to which she says ?thank you. ? 02/17: refused to engage. Dismissed TW. Stated did not want to answer any Qs. No CP/flutter Medication Compliance: Yes Review of Systems Monitor for Afib Medical Review of Systems: unchanged Mental Status Exam Mental Status Exam Narrative: Pt is alert to person, place and situation; in bed, awake; she remains only using few words, but is cooperative; dressed in appropriately in casual cloths, but unkempt hair; mood is depressed and affect blunted; minimal eye contact; significant Speech latency; when speaks, it's with a slowed rate though normal volume; remains with significant psychomotor retardation present; thought process can be goal oriented; very concrete; Thought vacous; no delusional thinking expressed but recent paranoid ideations; denies any SI/HI. Intrusive AH but less intense then yesterday;? Patients insight and judgment impaired. Patient Appearance: Disheveled Level of Consciousness: Awake Patient Behavior: Guarded and Uncooperative Mood Description: Suspicious Affect Description: Suspicious Patient Cognition Impaired: No Ability to Follow Directions: Poor Speech Pattern: Impoverished Hallucinations: None Delusions: Not Present Judgement: Poor Diagnostics Vital Signs (24Hr): Vital Signs - 24 hr 02/17/21 09:55 02/17/21 09:56 02/17/21 18:00 Temperature 97.8 F Pulse Rate 94 95 95 Respiratory Rate 18 16 Blood Pressure 109/72 109/72 113/85 Pulse Oximetry 96 99 02/17/21 22:25 02/18/21 06:00 Temperature 97.3 F Pulse Rate 68 72 Respiratory Rate Blood Pressure 111/53 L 106/54 L Pulse Oximetry 97 Labs Labs: Laboratory Results - last 48 hr 02/16/21 02/16/21 02/17/21 16:59 20:09 06:38 POC Glucose 118 H 152 H 115 02/17/21 02/18/21 11:10 05:53 POC Glucose 231 H 137 H Medications Medications Current Medications Acetaminophen (Acetaminophen 325 Mg Tablet) 650 mg PO Q6H PRN PRN Reason: Headache/Pain Mild Scale (1-3) Last Admin: 02/17/21 15:24 Dose: 650 mg Documented by: Al Hydroxide/Mg Hydroxide (Magnesium Hydrox/Alum Hydrox 30 Ml Oral.Susp) 30 ml PO Q6H PRN PRN Reason: Heartburn/Nausea Amlodipine Besylate (Amlodipine Besylate 10 Mg Tablet) 10 mg PO DAILY [facility]; Protocol Last Admin: 02/17/21 09:56 Dose: 10 mg Documented by: Apixaban (Apixaban 5 Mg Tablet) 5 mg PO BID [facility] Last Admin: 02/17/21 22:26 Dose: 5 mg Documented by: Carvedilol (Carvedilol 6.25 Mg Tablet) 6.25 mg PO BID [facility]; Protocol Last Admin: 02/17/21 22:25 Dose: 6.25 mg Documented by: Clonazepam (Clonazepam 0.5 Mg Tablet) 0.5 mg PO BID [facility] Last Admin: 02/17/21 22:25 Dose: 0.5 mg Documented by: Diltiazem HCl (Diltiazem Hcl Cd 120 Mg Cap.Er.Deg) 120 mg PO DAILY [facility]; Protocol Last Admin: 02/17/21 09:56 Dose: 120 mg Documented by: Glipizide (Glipizide 10 Mg Tablet) 10 mg PO DAILY@0730 [facility] Last Admin: 02/18/21 05:49 Dose: 10 mg Documented by: Hydroxyzine HCl (Hydroxyzine Hcl 25 Mg Tablet) 25 mg PO BEDTIME PRN PRN Reason: Anxiety Levothyroxine Sodium (Levothyroxine Sodium 50 Mcg Tablet) 50 mcg PO DAILY@0600 [facility] Last Admin: 02/18/21 05:49 Dose: 50 mcg Documented by: Magnesium Hydroxide (Milk Of Magnesia 30 Ml Oral.Susp) 30 ml PO DAILY PRN PRN Reason: Constipation Oxcarbazepine (Oxcarbazepine 300 Mg Tablet) 300 mg PO DAILY [facility] Oxcarbazepine (Oxcarbazepine 300 Mg Tablet) 600 mg PO BEDTIME [facility] Risperidone (Risperidone 2 Mg Tablet) 4 mg PO BEDTIME [facility] Risperidone (Risperidone 2 Mg Tablet) 2 mg PO DAILY [facility] Trazodone HCl (Trazodone Hcl 50 Mg Tablet) 50 mg PO BEDTIME PRN PRN Reason: Insomnia Last Admin: 02/13/21 22:51 Dose: 50 mg Documented by: Allergies Allergies Allergy/AdvReac Type Severity Reaction Status Date / Time No Known Allergies Allergy Unverified 02/06/21 22:26 Assessment & Plan Assessment & Plan (1) Schizoaffective disorder, depressive type: Status: Chronic Code(s): F25.1 - Schizoaffective disorder, depressive type (2) CKD stage 4 due to type 1 diabetes mellitus: Status: Chronic Code(s): E10.22 - Type 1 diabetes mellitus with diabetic chronic kidney disease; N18.4 - Chronic kidney disease, stage 4 (severe) (3) Atrial flutter with rapid ventricular response: Status: Acute Code(s): I48.92 - Unspecified atrial flutter (4) Hypothyroidism: Status: Acute Code(s): E03.9 - Hypothyroidism, unspecified (5) Diabetes: Status: Chronic Code(s): E11.9 - Type 2 diabetes mellitus without complications (6) HTN (hypertension): Status: Chronic Code(s): I10 - Essential (primary) hypertension Assessment and Plan: IMPRESSION: Thu is a 60 yo female with hx of bipolar, 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 On unit, she spoke very little, was confused, had blunted affect, AH and significant speech latency and psychomotor retardation. She was was treated for dehydration with IV fluids and restarted on Risperdal to good effect as patient became more organized, brighter affect, talking spontaneously and eventually out and about in [place] saying AH had resolved. Pt however developed Atrial Flutter and was admitted to medical floor for treatment and started on cardizem and eventually medically cleared. On medical floor She was continued on Risperdal however, she regressed some and now Re-presents for Admission to for continued psychotic symptoms, disorganized thinking, AH, again with blunted affect, significant speech latency and psychomotor retardation. -patient does not appear catatonic; however she did seem to feel little better with Ativan; will start clonazepam b.i.d. for now since it is longer acting Hospital course/decision making: on admission Patient mostly gives one-word answers of yes or no. She had the most voice inflection when saying yes to having intrusive auditory hallucinations that were causing her to be confused, distracted and making it hard to talk. Patient did ask for Ativan for racing thoughts saying it has helped her in the past; patient could not elaborate on specifics of racing thoughts saying ?I do not know. ? Patient denies SI and HI. She said she remembers feeling a little better on the psych unit before she left for the medical floor and agreed she feels worse now. She asked if her heart rate was better and quality analyst/technical writer explained treatment. 02/15 - patient out of bed dressed in casual clothing; still with speech latency, psychomotor retardation and blunted affect, however auditory hallucinations less intense; will restart Trileptal and titrate PLAN: Patient on CV Q 15 minutes checks Clonazepam 0.5mg BID for anxiety related to psychotic symptoms Continue trileptal 300 mg b.i.d. until 02/17 STARTING 02/18 INCREASE TO Trileptal 600 mg QHS and 300 mg QAM) continue Risperdal 2 mg a.m. Continue Risperdal 4 mg at bedtime Continue amlodipine, apixaban, carvedilol, diltiazem, glipizide Continue Insulin sliding scale Continue levothyroxine Continue trazodone p.r.n. 02/17: No changein plan I spent minutes with the patient and/or on the patient floor today, greater than?50% of which was spent counseling/coordinating care. Reason for contiued inpatient stay Substantial Risk for: inability to function and med/psych decompensation
[2021-02-18 09:07] VITALS: BP 106/54
[2021-02-18] MEDS: clonazePAM 0.5 MG TABLET PO ×2 (09:07→20:01)
[2021-02-18] MEDS: carvediloL 6.25 MG TABLET PO ×2 (09:07→20:03)
[2021-02-18] MEDS: dilTIAZem HCL CD 120 MG CAP.ER.DEG PO (09:07)
[2021-02-18] MEDS: Apixaban 5 MG TABLET PO ×2 (09:08→20:03)
[2021-02-18] MEDS: OXcarbazepine 300 MG TABLET PO (09:08)
[2021-02-18] MEDS: amLODIPine Besylate 10 MG TABLET PO (09:08)
[2021-02-18] MEDS: Acetaminophen 325 MG TABLET 650 MG PO ×2 (09:34→20:02)
--- NOTE | 2021-02-18 17:19 | P.PNPSI_ITS ---
Subjective Subjective Date of Service: 02/18/21 Reason For Visit: Depression Interim History: 02/16:Patient reports that she has a little better she remains with speech latency, blunted affect and psychomotor retardation. She does say that auditory hallucinations have resolved. She says it is still hard to talk but says she does not know why. Patient denies any SI or HI. She agrees to continuing to increase Trileptal to which she says ?thank you. ? 02/17: refused to engage. Dismissed TW. Stated did not want to answer any Qs. No CP/flutter 02/18: Irritable/dismissive. No cheat discomfort. VS noted Mental Status Exam Mental Status Exam Narrative: Pt is alert to person, place and situation; in bed, awake; she remains only using few words, but is cooperative; dressed in appropriately in casual cloths, but unkempt hair; mood is depressed and affect blunted; minimal eye contact; significant Speech latency; when speaks, it's with a slowed rate though normal volume; remains with significant psychomotor retardation present; thought process can be goal oriented; very concrete; Thought vacous; no delusional thinking expressed but recent paranoid ideations; denies any SI/HI. Intrusive AH but less intense then yesterday;? Patients insight and judgment impaired. Patient Appearance: Disheveled Level of Consciousness: Awake Patient Behavior: Guarded and Uncooperative Mood Description: Suspicious Affect Description: Suspicious Patient Cognition Impaired: No Ability to Follow Directions: Poor Speech Pattern: Impoverished Diagnostics Vital Signs (24Hr): Vital Signs - 24 hr 02/17/21 18:00 02/17/21 22:25 02/18/21 06:00 Temperature 97.8 F 97.3 F Pulse Rate 95 68 72 Respiratory Rate 16 Blood Pressure 113/85 111/53 L 106/54 L Pulse Oximetry 99 97 02/18/21 09:07 Temperature Pulse Rate Respiratory Rate Blood Pressure 106/54 L Pulse Oximetry Labs Labs: Laboratory Results - last 48 hr 02/16/21 02/17/21 02/17/21 20:09 06:38 11:10 POC Glucose 152 H 115 231 H 02/18/21 05:53 POC Glucose 137 H Medications Medications Current Medications Acetaminophen (Acetaminophen 325 Mg Tablet) 650 mg PO Q6H PRN PRN Reason: Headache/Pain Mild Scale (1-3) Last Admin: 02/18/21 09:34 Dose: 650 mg Documented by: Al Hydroxide/Mg Hydroxide (Magnesium Hydrox/Alum Hydrox 30 Ml Oral.Susp) 30 ml PO Q6H PRN PRN Reason: Heartburn/Nausea Amlodipine Besylate (Amlodipine Besylate 10 Mg Tablet) 10 mg PO DAILY [facility]; Protocol Last Admin: 02/18/21 09:08 Dose: 10 mg Documented by: Apixaban (Apixaban 5 Mg Tablet) 5 mg PO BID [facility] Last Admin: 02/18/21 09:08 Dose: 5 mg Documented by: Carvedilol (Carvedilol 6.25 Mg Tablet) 6.25 mg PO BID [facility]; Protocol Last Admin: 02/18/21 09:07 Dose: 6.25 mg Documented by: Clonazepam (Clonazepam 0.5 Mg Tablet) 0.5 mg PO BID [facility] Last Admin: 02/18/21 09:07 Dose: 0.5 mg Documented by: Diltiazem HCl (Diltiazem Hcl Cd 120 Mg Cap.Er.Deg) 120 mg PO DAILY [facility]; Protocol Last Admin: 02/18/21 09:07 Dose: 120 mg Documented by: Glipizide (Glipizide 10 Mg Tablet) 10 mg PO DAILY@0730 [facility] Last Admin: 02/18/21 05:49 Dose: 10 mg Documented by: Hydroxyzine HCl (Hydroxyzine Hcl 25 Mg Tablet) 25 mg PO BEDTIME PRN PRN Reason: Anxiety Levothyroxine Sodium (Levothyroxine Sodium 50 Mcg Tablet) 50 mcg PO DAILY@0600 [facility] Last Admin: 02/18/21 05:49 Dose: 50 mcg Documented by: Magnesium Hydroxide (Milk Of Magnesia 30 Ml Oral.Susp) 30 ml PO DAILY PRN PRN Reason: Constipation Oxcarbazepine (Oxcarbazepine 300 Mg Tablet) 300 mg PO DAILY [facility] Last Admin: 02/18/21 09:08 Dose: 300 mg Documented by: Oxcarbazepine (Oxcarbazepine 300 Mg Tablet) 600 mg PO BEDTIME [facility] Risperidone (Risperidone 2 Mg Tablet) 4 mg PO BEDTIME [facility] Risperidone (Risperidone 2 Mg Tablet) 2 mg PO DAILY [facility] Trazodone HCl (Trazodone Hcl 50 Mg Tablet) 50 mg PO BEDTIME PRN PRN Reason: Insomnia Last Admin: 02/13/21 22:51 Dose: 50 mg Documented by: Allergies Allergies Allergy/AdvReac Type Severity Reaction Status Date / Time No Known Allergies Allergy Unverified 02/06/21 22:26 Assessment & Plan Assessment & Plan (1) Schizoaffective disorder, depressive type: Status: Chronic Code(s): F25.1 - Schizoaffective disorder, depressive type (2) CKD stage 4 due to type 1 diabetes mellitus: Status: Chronic Code(s): E10.22 - Type 1 diabetes mellitus with diabetic chronic kidney disease; N18.4 - Chronic kidney disease, stage 4 (severe) (3) Atrial flutter with rapid ventricular response: Status: Acute Code(s): I48.92 - Unspecified atrial flutter (4) Hypothyroidism: Status: Acute Code(s): E03.9 - Hypothyroidism, unspecified (5) Diabetes: Status: Chronic Code(s): E11.9 - Type 2 diabetes mellitus without complications (6) HTN (hypertension): Status: Chronic Code(s): I10 - Essential (primary) hypertension Assessment and Plan: IMPRESSION: Thu is a 60 yo female with hx of bipolar, 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 On unit, she spoke very little, was confused, had blunted affect, AH and significant speech latency and psychomotor retardation. She was was treated for dehydration with IV fluids and restarted on Risperdal to good effect as patient became more organized, brighter affect, talking spontaneously and eventually out and about in [place] saying AH had resolved. Pt however developed Atrial Flutter and was admitted to medical floor for treatment and started on cardizem and eventually medically cleared. On medical floor She was continued on Risperdal however, she regressed some and now Re-presents for Admission to for continued psychotic symptoms, disorganized thinking, AH, again with blunted affect, significant speech latency and psychomotor retardation. -patient does not appear catatonic; however she did seem to feel little better with Ativan; will start clonazepam b.i.d. for now since it is longer acting Hospital course/decision making: on admission Patient mostly gives one-word answers of yes or no. She had the mo st voice inflection when saying yes to having intrusive auditory hallucinations that were causing her to be confused, distracted and making it hard to talk. Patient did ask for Ativan for racing thoughts saying it has helped her in the past; patient could not elaborate on specifics of racing thoughts saying ?I do not know. ? Patient denies SI and HI. She said she remembers feeling a little better on the psych unit before she left for the medical floor and agreed she feels worse now. She asked if her heart rate was better and quality analyst/technical writer explained treatment. 02/15 - patient out of bed dressed in casual clothing; still with speech latency, psychomotor retardation and blunted affect, however auditory hallucinations less intense; will restart Trileptal and titrate PLAN: Patient on CV Q 15 minutes checks Clonazepam 0.5mg BID for anxiety related to psychotic symptoms Continue trileptal 300 mg b.i.d. until 02/17 STARTING 02/18 INCREASE TO Trileptal 600 mg QHS and 300 mg QAM) continue Risperdal 2 mg a.m. Continue Risperdal 4 mg at bedtime Continue amlodipine, apixaban, carvedilol, diltiazem, glipizide Continue Insulin sliding scale Continue levothyroxine Continue trazodone p.r.n. 02/17: No changein plan 02/18: Ct plan. Increase in TRLP today I spent minutes with the patient and/or on the patient floor today, greater than?50% of which was spent counseling/coordinating care. Reason for contiued inpatient stay Substantial Risk for: inability to function and med/psych decompensation
[2021-02-18 18:00] VITALS: BP 118/75; PULSE 71; RESP 16; TEMP 36.7; O2SAT 100
[2021-02-18 20:03] VITALS: BP 112/61; PULSE 80
[2021-02-18] MEDS: OXcarbazepine 300 MG TABLET 600 MG PO (20:03)
[2021-02-19 06:00] VITALS: BP 123/68; PULSE 60; RESP 18; TEMP 36.2; O2SAT 98
[2021-02-19] MEDS: Levothyroxine Sodium 50 MCG TABLET PO (06:37)
[2021-02-19 06:56] LABS: Glucose, Whole Blood 110 mg/dL (60-115)
[2021-02-19 09:49] VITALS: BP 122/58; PULSE 78
[2021-02-19] MEDS: dilTIAZem HCL CD 120 MG CAP.ER.DEG PO (09:49)
[2021-02-19] MEDS: carvediloL 6.25 MG TABLET PO ×2 (09:49→21:11)
[2021-02-19] MEDS: glipiZIDE 10 MG TABLET PO (09:49)
[2021-02-19] MEDS: amLODIPine Besylate 10 MG TABLET PO (09:49)
[2021-02-19] MEDS: Apixaban 5 MG TABLET PO ×2 (09:50→21:07)
[2021-02-19] MEDS: clonazePAM 0.5 MG TABLET PO ×2 (09:50→21:07)
[2021-02-19] MEDS: OXcarbazepine 300 MG TABLET PO (09:50)
--- NOTE | 2021-02-19 10:29 | P.PNPSI_ITS ---
Subjective Subjective Date of Service: 02/19/21 Reason For Visit: Depression Interim History: Patient says that she is doing better. She reports she is thinking more clearly than before and AH remains resolved. She denies SI/HI. Podiatric Assistant asks about patient's speech latency which she says is normal for her. She reports she is almost back to her normal self and is a 9/10, 10 being how she is normally day-to-day. Patient says that she feels pretty much ready for discharge home but agrees to have her sister give her opinion on patient's stability. 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 Podiatric Assistant discussed new medication for her arrhythmia and the need to follow-up with her PCP which is she says she will do. Patient shared that she has talked to her sister and her sister wants her to make a will which patient agrees to do saying she wants to leave her things to both of her step children. Mental Status Exam Mental Status Exam Narrative: Pt is alert to person, place and situation; she still mostly uses few words but also speaks in sentences; she is cooperative; dressed appropriately in casual cloths, with adequate hygiene; mood is better; affect remains mostly but she smiled and laughed appropriately too; adequate eye contact; Speech latency remains; still speaks at a slowed rate though normal volume; no psychomotor retardation; thought process goal oriented, logical; concrete; Thoughts on whatever is asked of her; making her will at sister's behest; no delusional or paranoid thinking expressed; denies any SI/HI. denies AH; Patients insight and judgment impaired appear intact. Diagnostics Vital Signs (24Hr): Vital Signs - 24 hr 02/18/21 18:00 02/18/21 20:03 02/19/21 06:00 Temperature 98.1 F 97.2 F Pulse Rate 71 80 60 Respiratory Rate 16 18 Blood Pressure 118/75 112/61 123/68 Pulse Oximetry 100 98 02/19/21 09:49 Temperature Pulse Rate 78 Respiratory Rate Blood Pressure 122/58 L Pulse Oximetry Labs Labs: Laboratory Results - last 48 hr 02/17/21 02/18/21 02/19/21 11:10 05:53 06:47 POC Glucose 231 H 137 H 110 Medications Medications Current Medications Acetaminophen (Acetaminophen 325 Mg Tablet) 650 mg PO Q6H PRN PRN Reason: Headache/Pain Mild Scale (1-3) Last Admin: 02/18/21 20:02 Dose: 650 mg Documented by: Al Hydroxide/Mg Hydroxide (Magnesium Hydrox/Alum Hydrox 30 Ml Oral.Susp) 30 ml PO Q6H PRN PRN Reason: Heartburn/Nausea Amlodipine Besylate (Amlodipine Besylate 10 Mg Tablet) 10 mg PO DAILY [facility]; Protocol Last Admin: 02/19/21 09:49 Dose: 10 mg Documented by: Apixaban (Apixaban 5 Mg Tablet) 5 mg PO BID [facility] Last Admin: 02/19/21 09:50 Dose: 5 mg Documented by: Carvedilol (Carvedilol 6.25 Mg Tablet) 6.25 mg PO BID [facility]; Protocol Last Admin: 02/19/21 09:49 Dose: 6.25 mg Documented by: Clonazepam (Clonazepam 0.5 Mg Tablet) 0.5 mg PO BID [facility] Last Admin: 02/19/21 09:50 Dose: 0.5 mg Documented by: Diltiazem HCl (Diltiazem Hcl Cd 120 Mg Cap.Er.Deg) 120 mg PO DAILY [facility]; Protocol Last Admin: 02/19/21 09:49 Dose: 120 mg Documented by: Glipizide (Glipizide 10 Mg Tablet) 10 mg PO DAILY@0730 [facility] Last Admin: 02/19/21 09:49 Dose: 10 mg Documented by: Hydroxyzine HCl (Hydroxyzine Hcl 25 Mg Tablet) 25 mg PO BEDTIME PRN PRN Reason: Anxiety Levothyroxine Sodium (Levothyroxine Sodium 50 Mcg Tablet) 50 mcg PO DAILY@0600 [facility] Last Admin: 02/19/21 06:37 Dose: 50 mcg Documented by: Magnesium Hydroxide (Milk Of Magnesia 30 Ml Oral.Susp) 30 ml PO DAILY PRN PRN Reason: Constipation Oxcarbazepine (Oxcarbazepine 300 Mg Tablet) 300 mg PO DAILY [facility] Last Admin: 02/19/21 09:50 Dose: 300 mg Documented by: Oxcarbazepine (Oxcarbazepine 300 Mg Tablet) 600 mg PO BEDTIME [facility] Last Admin: 02/18/21 20:03 Dose: 600 mg Documented by: Risperidone (Risperidone 2 Mg Tablet) 4 mg PO BEDTIME [facility] Risperidone (Risperidone 2 Mg Tablet) 2 mg PO DAILY [facility] Trazodone HCl (Trazodone Hcl 50 Mg Tablet) 50 mg PO BEDTIME PRN PRN Reason: Insomnia Last Admin: 02/13/21 22:51 Dose: 50 mg Documented by: Allergies Allergies Allergy/AdvReac Type Severity Reaction Status Date / Time No Known Allergies Allergy Unverified 02/06/21 22:26 Assessment & Plan Assessment & Plan (1) Schizoaffective disorder, depressive type: Status: Chronic Code(s): F25.1 - Schizoaffective disorder, depressive type (2) CKD stage 4 due to type 1 diabetes mellitus: Status: Chronic Code(s): E10.22 - Type 1 diabetes mellitus with diabetic chronic kidney disease; N18.4 - Chronic kidney disease, stage 4 (severe) (3) Atrial flutter with rapid ventricular response: Status: Acute Code(s): I48.92 - Unspecified atrial flutter (4) Hypothyroidism: Status: Acute Code(s): E03.9 - Hypothyroidism, unspecified (5) Diabetes: Status: Chronic Code(s): E11.9 - Type 2 diabetes mellitus without complications (6) HTN (hypertension): Status: Chronic Code(s): I10 - Essential (primary) hypertension Assessment and Plan: IMPRESSION: Thu is a 60 yo female with hx of bipolar, 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 On unit, she spoke very little, was confused, had blunted affect, AH and significant speech latency and psychomotor retardation. She was was treated for dehydration with IV fluids and restarted on Risperdal to good effect as patient became more organized, brighter affect, talking spontaneously and eventually out and about in [place] saying AH had resolved. Pt however developed Atrial Flutter and was admitted to medical floor for treatment and started on cardizem and eventually medically cleared. On medical floor She was continued on Risperdal however, she regressed some and now Re-presents for Admission to for continued psychotic symptoms, disorganized thinking, AH, again with blunted affect, significant speech latency and psychomotor retardation. -patient does not appear catatonic; however she did seem to feel little better with Ativan; will start clonazepam b.i.d. for now since it is longer acting Hospital course/decision making: on admission Patient mostly gives one-word answers of yes or no. She had the most voice inflection when saying yes to having intrusive auditory hallucinations that were causing her to be confused, distracted and making it hard to talk. Patient did ask for Ativan for racing thoughts saying it has helped her in the past; patient could not elaborate on specifics of racing thoughts saying ?I do not know. ? Patient denies SI and HI. She said she remembers feeling a little better on the psych unit before she left for the [facility] floor and agreed she feels worse now. She asked if her heart rate was better and health technical writer explained treatment. 02/15 - patient out of bed dressed in casual clothing; still with speech latency, ps ychomotor retardation and blunted affect, however auditory hallucinations less intense; will restart Trileptal and titrate 02/19 patient now on home dose of both Risperdal and Trileptal. She reports she is feeling better and denies any AH; says confusion has cleared up and that she is mostly back to her normal self. Patient remains with speech latency and blunted affect though she is speaking more spontaneously, using full sentences not just 1 word answers and at with brighter affect, appropriately smiling. Will get sisters collateral to help assess for patient's baseline PLAN: Patient on CV Q 15 minutes checks -PCP appointment post discharge as patient has been started on diltiazem -nephrology appointment post discharge to be scheduled Clonazepam 0.5mg BID for anxiety related to psychotic symptoms; will consider making p.r.n. Continue Trileptal 600 mg QHS and 300 mg QAM) continue Risperdal 2 mg a.m. Continue Risperdal 4 mg at bedtime Continue amlodipine, apixaban, carvedilol, diltiazem, glipizide Continue Insulin sliding scale Continue levothyroxine Continue trazodone p.r.n. I spent minutes with the patient and/or on the patient floor today, greater than?50% of which was spent counseling/coordinating care. Reason for contiued inpatient stay Substantial Risk for: other
[2021-02-19] MEDS: OXcarbazepine 300 MG TABLET 600 MG PO (21:07)
[2021-02-19 21:11] VITALS: BP 124/62; PULSE 66
[2021-02-19 21:23] VITALS: BP 124/62; PULSE 66
[2021-02-19] MEDS: traZODone HCL 50 MG TABLET PO (21:30)
[2021-02-20 06:00] VITALS: BP 124/60; PULSE 77; TEMP 36.2; O2SAT 98
[2021-02-20] MEDS: Levothyroxine Sodium 50 MCG TABLET PO (06:06)
[2021-02-20 06:55] LABS: Glucose, Whole Blood 126 mg/dL (60-115)
[2021-02-20] MEDS: glipiZIDE 10 MG TABLET PO (08:52)
[2021-02-20] MEDS: carvediloL 6.25 MG TABLET PO ×2 (08:52→20:00)
[2021-02-20] MEDS: clonazePAM 0.5 MG TABLET PO (08:52)
[2021-02-20] MEDS: dilTIAZem HCL CD 120 MG CAP.ER.DEG PO (08:52)
[2021-02-20] MEDS: Apixaban 5 MG TABLET PO ×2 (08:52→20:00)
[2021-02-20] MEDS: amLODIPine Besylate 10 MG TABLET PO (08:52)
[2021-02-20] MEDS: OXcarbazepine 300 MG TABLET PO (08:52)
--- NOTE | 2021-02-20 10:18 | HO.PSYCHPN ---
Subjective Subjective Date of Service: 02/20/21 Reason For Visit: Depression Interim History: pt says she feels good and remains feeling back to her normal self. She asks for lotion for her dry feet, but otherwise has no complaints and no requests. She denies feeling depressed and denies any SI; AH remain resolved. Pt says she feels ready to go home. Mental Status Exam Mental Status Exam Narrative: Pt is alert to person, place and situation; she still mostly uses few words but also speaks in sentences; she is cooperative; dressed appropriately in casual cloths, with adequate hygiene;? mood is better; affect remains blunted mostly but she smiles too and laughs appropriately; adequate eye contact;? Speech latency remains which she says is her baseline; still speaks at a slowed rate though normal volume; no psychomotor retardation; thought process goal oriented, logical but concrete; Thoughts on whatever is asked of her; no delusional or paranoid thinking expressed; denies any SI/HI. denies AH; Patients insight and judgment appear intact. Diagnostics Vital Signs (24Hr): Vital Signs - 24 hr 02/19/21 21:11 02/19/21 21:23 02/20/21 06:00 Temperature 97.1 F Pulse Rate 66 66 77 Blood Pressure 124/62 124/62 124/60 Pulse Oximetry 98 Labs Labs: Laboratory Results - last 48 hr 02/19/21 02/20/21 06:47 06:50 POC Glucose 110 126 H Medications Medications Current Medications Acetaminophen (Acetaminophen 325 Mg Tablet) 650 mg PO Q6H PRN PRN Reason: Headache/Pain Mild Scale (1-3) Last Admin: 02/18/21 20:02 Dose: 650 mg Documented by: Al Hydroxide/Mg Hydroxide (Magnesium Hydrox/Alum Hydrox 30 Ml Oral.Susp) 30 ml PO Q6H PRN PRN Reason: Heartburn/Nausea Amlodipine Besylate (Amlodipine Besylate 10 Mg Tablet) 10 mg PO DAILY [facility]; Protocol Last Admin: 02/20/21 08:52 Dose: 10 mg Documented by: Apixaban (Apixaban 5 Mg Tablet) 5 mg PO BID [facility] Last Admin: 02/20/21 08:52 Dose: 5 mg Documented by: Carvedilol (Carvedilol 6.25 Mg Tablet) 6.25 mg PO BID [facility]; Protocol Last Admin: 02/20/21 08:52 Dose: 6.25 mg Documented by: Diltiazem HCl (Diltiazem Hcl Cd 120 Mg Cap.Er.Deg) 120 mg PO DAILY [facility]; Protocol Last Admin: 02/20/21 08:52 Dose: 120 mg Documented by: Glipizide (Glipizide 10 Mg Tablet) 10 mg PO DAILY@0730 [facility] Last Admin: 02/20/21 08:52 Dose: 10 mg Documented by: Hydroxyzine HCl (Hydroxyzine Hcl 25 Mg Tablet) 25 mg PO BEDTIME PRN PRN Reason: Anxiety Levothyroxine Sodium (Levothyroxine Sodium 50 Mcg Tablet) 50 mcg PO DAILY@0600 [facility] Last Admin: 02/20/21 06:06 Dose: 50 mcg Documented by: Magnesium Hydroxide (Milk Of Magnesia 30 Ml Oral.Susp) 30 ml PO DAILY PRN PRN Reason: Constipation Oxcarbazepine (Oxcarbazepine 300 Mg Tablet) 300 mg PO DAILY [facility] Last Admin: 02/20/21 08:52 Dose: 300 mg Documented by: Oxcarbazepine (Oxcarbazepine 300 Mg Tablet) 600 mg PO BEDTIME [facility] Last Admin: 02/19/21 21:07 Dose: 600 mg Documented by: Risperidone (Risperidone 2 Mg Tablet) 4 mg PO BEDTIME [facility] Risperidone (Risperidone 2 Mg Tablet) 2 mg PO DAILY [facility] Trazodone HCl (Trazodone Hcl 50 Mg Tablet) 50 mg PO BEDTIME PRN PRN Reason: Insomnia Last Admin: 02/19/21 21:30 Dose: 50 mg Documented by: Allergies Allergies Allergy/AdvReac Type Severity Reaction Status Date / Time No Known Allergies Allergy Unverified 02/06/21 22:26 Assessment & Plan Assessment & Plan (1) Schizoaffective disorder, depressive type: Status: Chronic Code(s): F25.1 - Schizoaffective disorder, depressive type (2) CKD stage 4 due to type 1 diabetes mellitus: Status: Chronic Code(s): E10.22 - Type 1 diabetes mellitus with diabetic chronic kidney disease; N18.4 - Chronic kidney disease, stage 4 (severe) (3) Atrial flutter with rapid ventricular response: Status: Acute Code(s): I48.92 - Unspecified atrial flutter (4) Hypothyroidism: Status: Acute Code(s): E03.9 - Hypothyroidism, unspecified (5) Diabetes: Status: Chronic Code(s): E11.9 - Type 2 diabetes mellitus without complications (6) HTN (hypertension): Status: Chronic Code(s): I10 - Essential (primary) hypertension Assessment and Plan: IMPRESSION: Thu is a 60 yo female with hx of bipolar, 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 On unit, she spoke very little, was confused, had blunted affect, AH and significant speech latency and psychomotor retardation. She was was treated for dehydration with IV fluids and restarted on Risperdal to good effect as patient became more organized, brighter affect, talking spontaneously and eventually out and about in [place] saying AH had resolved. Pt however developed Atrial Flutter and was admitted to medical floor for treatment and started on cardizem and eventually medically cleared. On medical floor She was continued on Risperdal however, she regressed some and now Re-presents for Admission to for continued psychotic symptoms, disorganized thinking, AH, again with blunted affect, significant speech latency and psychomotor retardation. -patient does not appear catatonic; however she did seem to feel little better with Ativan; will start clonazepam b.i.d. for now since it is longer acting Hospital course/decision making: on admission Patient mostly gives one-word answers of yes or no. She had the most voice inflection when saying yes to having intrusive auditory hallucinations that were causing her to be confused, distracted and making it hard to talk. Patient did ask for Ativan for racing thoughts saying it has helped her in the past; patient could not elaborate on specifics of racing thoughts saying ?I do not know. ? Patient denies SI and HI. She said she remembers feeling a little better on the psych unit before she left for the medical floor and agreed she feels worse now. She asked if her heart rate was better and technical document writer explained treatment. 02/15 - patient out of bed dressed in casual clothing; still with speech latency, psychomotor retardation and blunted affect, however auditory hallucinations less intense; will restart Trileptal and titrate 02/19 patient now on home dose of both Risperdal and Trileptal. She reports she is feeling better and denies any AH; says confusion has cleared up and that she is mostly back to her normal self. Patient remains with speech latency and blunted affect though she is speaking more spontaneously, using full sentences not just 1 word answers and at with brighter affect, appropriately smiling. Will get sisters collateral to help assess for patient's baseline -remains good mood and feels she's back to her normal self; no SI, denies depression, feeling ready to go home. PLAN: Patient on CV Q 15 minutes checks -PCP appointment post discharge as patient has been started on diltiazem -nephrology appointment post discharge to be scheduled no longer needs Clonazepam Continue Trileptal 600 mg QHS and 300 mg QAM) continue Risperdal 2 mg a.m. Continue Risperdal 4 mg at bedtime Continue amlodipine, apixaban, carvedilol, diltiazem, glipizide Continue Insulin sliding scale Continue levothyroxine Continue trazodone p.r.n. I spent minutes with the patient and/or on the patient floor today, greater than?50% of which was spent counseling/coordinating care. Reason for contiued inpatient stay Substantial Risk for: stable for discharge
[2021-02-20 20:00] VITALS: BP 129/60; PULSE 68
[2021-02-20] MEDS: OXcarbazepine 300 MG TABLET 600 MG PO (20:00)
[2021-02-21] MEDS: Levothyroxine Sodium 50 MCG TABLET PO (06:00)
[2021-02-21 06:42] LABS: Glucose, Whole Blood 110 mg/dL (60-115)
[2021-02-21 08:30] VITALS: BP 144/64; PULSE 67; RESP 16
[2021-02-21 09:09] VITALS: BP 144/64; PULSE 67
[2021-02-21] MEDS: dilTIAZem HCL CD 120 MG CAP.ER.DEG PO (09:09)
[2021-02-21] MEDS: amLODIPine Besylate 10 MG TABLET PO (09:09)
[2021-02-21] MEDS: glipiZIDE 10 MG TABLET PO (09:09)
[2021-02-21] MEDS: carvediloL 6.25 MG TABLET PO ×2 (09:10→20:08)
[2021-02-21] MEDS: OXcarbazepine 300 MG TABLET PO (09:10)
[2021-02-21] MEDS: Apixaban 5 MG TABLET PO ×2 (09:10→20:09)
--- NOTE | 2021-02-21 10:16 | HO.PSYCHPN ---
Subjective Subjective Date of Service: 02/21/21 Reason For Visit: Depression Interim History: pt says she's alright. She denies feeling any depression and denies SI; no HI; No AVH. Pt says she's feeling ready to go home and maintains that she remains back to her normal self. She told staff that she does infact want to move forward with getting fistula and dialysis. Mental Status Exam Mental Status Exam Narrative: ?Pt is alert to person, place and situation; she still mostly uses few words but also speaks in sentences; she is cooperative; dressed appropriately in casual cloths, with adequate hygiene;? mood is alright; affect remains blunted mostly but she smiles too and laughs appropriately; adequate eye contact;? Speech latency remains which she says is her baseline; still speaks at a slowed rate though normal volume; no psychomotor retardation; thought process goal oriented, logical but concrete; Thoughts on whatever is asked of her; no delusional or paranoid thinking expressed; denies any SI/HI. denies AH; Patients insight and judgment appear intact. Diagnostics Vital Signs (24Hr): Vital Signs - 24 hr 02/20/21 20:00 02/21/21 08:30 02/21/21 09:09 Pulse Rate 68 67 67 Respiratory Rate 16 Blood Pressure 129/60 144/64 H 144/64 H Labs Labs: Laboratory Results - last 48 hr 02/20/21 02/21/21 06:50 06:35 POC Glucose 126 H 110 Medications Medications Current Medications Acetaminophen (Acetaminophen 325 Mg Tablet) 650 mg PO Q6H PRN PRN Reason: Headache/Pain Mild Scale (1-3) Last Admin: 02/18/21 20:02 Dose: 650 mg Documented by: Al Hydroxide/Mg Hydroxide (Magnesium Hydrox/Alum Hydrox 30 Ml Oral.Susp) 30 ml PO Q6H PRN PRN Reason: Heartburn/Nausea Amlodipine Besylate (Amlodipine Besylate 10 Mg Tablet) 10 mg PO DAILY [facility]; Protocol Last Admin: 02/21/21 09:09 Dose: 10 mg Documented by: Apixaban (Apixaban 5 Mg Tablet) 5 mg PO BID [facility] Last Admin: 02/21/21 09:10 Dose: 5 mg Documented by: Carvedilol (Carvedilol 6.25 Mg Tablet) 6.25 mg PO BID [facility]; Protocol Last Admin: 02/21/21 09:10 Dose: 6.25 mg Documented by: Diltiazem HCl (Diltiazem Hcl Cd 120 Mg Cap.Er.Deg) 120 mg PO DAILY [facility]; Protocol Last Admin: 02/21/21 09:09 Dose: 120 mg Documented by: Glipizide (Glipizide 10 Mg Tablet) 10 mg PO DAILY@0730 [facility] Last Admin: 02/21/21 09:09 Dose: 10 mg Documented by: Hydroxyzine HCl (Hydroxyzine Hcl 25 Mg Tablet) 25 mg PO BEDTIME PRN PRN Reason: Anxiety Lactic Acid (Ammonium Lactate 12 % Lotion 226 Gm Bottle) 1 appl TOPICAL BID PRN; Protocol PRN Reason: Dry Skin Levothyroxine Sodium (Levothyroxine Sodium 50 Mcg Tablet) 50 mcg PO DAILY@0600 [facility] Last Admin: 02/21/21 06:00 Dose: 50 mcg Documented by: Magnesium Hydroxide (Milk Of Magnesia 30 Ml Oral.Susp) 30 ml PO DAILY PRN PRN Reason: Constipation Oxcarbazepine (Oxcarbazepine 300 Mg Tablet) 300 mg PO DAILY [facility] Last Admin: 02/21/21 09:10 Dose: 300 mg Documented by: Oxcarbazepine (Oxcarbazepine 300 Mg Tablet) 600 mg PO BEDTIME [facility] Last Admin: 02/20/21 20:00 Dose: 600 mg Documented by: Risperidone (Risperidone 2 Mg Tablet) 4 mg PO BEDTIME HAROLDO Risperidone (Risperidone 2 Mg Tablet) 2 mg PO DAILY [facility] Trazodone HCl (Trazodone Hcl 50 Mg Tablet) 50 mg PO BEDTIME PRN PRN Reason: Insomnia Last Admin: 02/19/21 21:30 Dose: 50 mg Documented by: Allergies Allergies Allergy/AdvReac Type Severity Reaction Status Date / Time No Known Allergies Allergy Unverified 02/06/21 22:26 Assessment & Plan Assessment & Plan (1) Schizoaffective disorder, depressive type: Status: Chronic Code(s): F25.1 - Schizoaffective disorder, depressive type (2) CKD stage 4 due to type 1 diabetes mellitus: Status: Chronic Code(s): E10.22 - Type 1 diabetes mellitus with diabetic chronic kidney disease; N18.4 - Chronic kidney disease, stage 4 (severe) (3) Atrial flutter with rapid ventricular response: Status: Acute Code(s): I48.92 - Unspecified atrial flutter (4) Hypothyroidism: Status: Acute Code(s): E03.9 - Hypothyroidism, unspecified (5) Diabetes: Status: Chronic Code(s): E11.9 - Type 2 diabetes mellitus without complications (6) HTN (hypertension): Status: Chronic Code(s): I10 - Essential (primary) hypertension Assessment and Plan: IMPRESSION: Thu is a 60 yo female with hx of bipolar, 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 On unit, she spoke very little, was confused, had blunted affect, AH and significant speech latency and psychomotor retardation. She was was treated for dehydration with IV fluids and restarted on Risperdal to good effect as patient became more organized, brighter affect, talking spontaneously and eventually out and about in milue saying AH had resolved. Pt however developed Atrial Flutter and was admitted to medical floor for treatment and started on cardizem and eventually medically cleared. On medical floor She was continued on Risperdal however, she regressed some and now Re-presents for Admission to for continued psychotic symptoms, disorganized thinking, AH, again with blunted affect, significant speech latency and psychomotor retardation. -patient does not appear catatonic; however she did seem to feel little better with Ativan; will start clonazepam b.i.d. for now since it is longer acting Hospital course/decision making: on admission Patient mostly gives one-word answers of yes or no. She had the most voice inflection when saying yes to having intrusive auditory hallucinations that were causing her to be confused, distracted and making it hard to talk. Patient did ask for Ativan for racing thoughts saying it has helped her in the past; patient could not elaborate on specifics of racing thoughts saying ?I do not know. ? Patient denies SI and HI. She said she remembers feeling a little better on the psych unit before she left for the medical floor and agreed she feels worse now. She asked if her heart rate was better and editorial writer explained treatment. 02/15 - patient out of bed dressed in casual clothing; still with speech latency, psychomotor retardation and blunted affect, however auditory hallucinations less intense; will restart Trileptal and titrate 02/19 patient now on home dose of both Risperdal and Trileptal.? She reports she is feeling better and denies any AH; says confusion has cleared up and that she is mostly back to her normal self.? Patient remains with speech latency and blunted affect though she is speaking more spontaneously, using full sentences not just 1 word answers and at with brighter affect, appropriately smiling.? Will get sisters collateral to help assess for patient's baseline -remains good mood and feels she's back to her normal self; no SI, denies depression, feeling ready to go home. -sister has been visiting and reports pt is back to her baseline and is ready to go home. Pt is not in imminent risk for harm to self and others and back to baseline, future oriented, in overall good mood, no SI/HI, no AVH. Pt is stable and appropriate for discharge. PLAN: Patient on CV Q 15 minutes checks -PCP appointment post discharge as patient has been started on diltiazem -nephrology appointment post discharge to be scheduled Continue Trileptal 600 mg QHS and 300 mg QAM) continue Risperdal 2 mg a.m. Continue Risperdal 4 mg at bedtime Continue amlodipine, apixaban, carvedilol, diltiazem, glipizide Continue Insulin sliding scale Continue levothyroxine Continue trazodone p.r.n. I spent minutes with the patient and/or on the patient floor today, greater than?50% of which was spent counseling/coordinating care. Reason for contiued inpatient stay Substantial Risk for: stable for discharge
[2021-02-21 18:00] VITALS: BP 134/64; PULSE 62; RESP 16; TEMP 37; O2SAT 100
[2021-02-21 20:08] VITALS: BP 131/63; PULSE 71
[2021-02-21] MEDS: OXcarbazepine 300 MG TABLET 600 MG PO (20:08)
[2021-02-21] MEDS: traZODone HCL 50 MG TABLET PO (21:03)
[2021-02-22 06:00] VITALS: BP 148/69; PULSE 67; RESP 18; TEMP 37.1; O2SAT 96
[2021-02-22] MEDS: Levothyroxine Sodium 50 MCG TABLET PO (06:28)
[2021-02-22 06:47] LABS: Glucose, Whole Blood 106 mg/dL (60-115)
[2021-02-22 08:31] VITALS: BP 140/68; PULSE 72
[2021-02-22] MEDS: carvediloL 6.25 MG TABLET PO (08:31)
[2021-02-22 08:32] VITALS: BP 140/68; PULSE 68
[2021-02-22] MEDS: dilTIAZem HCL CD 120 MG CAP.ER.DEG PO (08:32)
[2021-02-22 08:33] VITALS: BP 140/68; PULSE 68
[2021-02-22] MEDS: amLODIPine Besylate 10 MG TABLET PO (08:33)
[2021-02-22] MEDS: glipiZIDE 10 MG TABLET PO (08:33)
[2021-02-22] MEDS: OXcarbazepine 300 MG TABLET PO (08:33)
[2021-02-22] MEDS: Apixaban 5 MG TABLET PO (08:34)
[2021-02-22] MEDS: Ammonium Lactate 12 % Lotion 226 GM BOTTLE 1 APPL TOPICAL (08:34)
--- NOTE | 2021-02-22 09:38 | PM.PSYDC ---
DS: Providers Provider Date of Service: 02/22/21 Date of admission: 02/13/21 21:53 Date of discharge: 02/22/21 Primary care physician: Unknown Physician Attending physician on admission: Wili Betts Attending physician on discharge: Wili Betts DS: Diagnosis Discharge Diagnosis (1) Schizoaffective disorder, depressive type: Status: Chronic (2) CKD stage 4 due to type 1 diabetes mellitus: Status: Chronic (3) Atrial flutter with rapid ventricular response: Status: Acute (4) Hypothyroidism: Status: Acute (5) Diabetes: Status: Chronic (6) HTN (hypertension): Status: Chronic DS: Medications Discharge Medications Home Medications: Previous Rx's Medication Instructions Recorded amlodipine 10 mg tablet 10 mg PO DAILY 30 Days #30 tab 02/22/21 ammonium lactate 12 % lotion 1 appl TOPICAL BID PRN #0 g 02/22/21 apixaban 5 mg tablet (Eliquis) 5 mg PO BID 30 Days #60 tab 02/22/21 carvedilol 6.25 mg tablet 6.25 mg PO BID 30 Days #60 tab 02/22/21 diltiazem HCl 120 mg 120 mg PO DAILY 30 Days #30 cap 02/22/21 capsule,extended release 24 hr (Cardizem CD) glipizide 10 mg tablet 10 mg PO DAILY 30 Days #30 tab 02/22/21 levothyroxine 50 mcg tablet 50 mcg PO DAILY 30 Days #30 tab 02/22/21 oxcarbazepine 300 mg tablet See Rx Instructions .ROUTE 02/22/21 .COMPLEX 30 Days #90 tab risperidone 2 mg tablet See Rx Instructions .ROUTE 02/22/21 .COMPLEX 30 Days #90 tab trazodone 50 mg tablet 50 mg PO BEDTIME PRN 30 Days #30 02/22/21 tab Mental Status Exam Mental Status Exam Narrative: Pt is alert to person, place and situation; she still mostly uses few words but also speaks in sentences; she is cooperative; dressed appropriately in casual cloths, with adequate hygiene;? mood is alright; affect remains blunted mostly but she smiles too and laughs appropriately; adequate eye contact;? Speech latency remains which she says is her baseline; still speaks at a slowed rate though normal volume; no psychomotor retardation; thought process goal oriented, logical but concrete; Thoughts on whatever is asked of her; no delusional or paranoid thinking expressed; denies any SI/HI. denies AH; Patients insight and judgment appear intact. Data Data Completed and Pending Completed studies during hospitalization [Text1]: 02/15/21 02/15/21 02/15/21 12:01 17:48 21:17 POC Glucose 200 H 128 H 277 H 02/16/21 02/16/21 02/16/21 06:50 16:59 20:09 POC Glucose 154 H 118 H 152 H 02/17/21 02/17/21 02/18/21 06:38 11:10 05:53 POC Glucose 115 231 H 137 H 02/19/21 02/20/21 02/21/21 06:47 06:50 06:35 POC Glucose 110 126 H 110 02/22/21 06:42 POC Glucose 106 DS: Summary Hospital Course Hospital Course: RE-PRESENTS for admission following transfer to medical floor for newly dx Atrial Flutter and started on diltiazem: Thu is a 60 yo female with hx of bipolar, 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 On unit, she spoke very little, was confused, had blunted affect, AH and significant speech latency and psychomotor retardation. She was was treated for dehydration with IV fluids and restarted on Risperdal to good effect as patient became more organized, brighter affect, talking spontaneously and eventually out and about in [place] saying AH had resolved. Pt however developed Atrial Flutter and was admitted to medical floor for treatment? and started on cardizem and eventually medically cleared. On medical floor She was continued on Risperdal however, she regressed some and now Re-presents for Admission to for continued psychotic symptoms, disorganized thinking, AH, again with blunted affect, significant speech latency and psychomotor retardation.? Hospital course: on admission Patient mostly gives one-word answers of yes or no.? She had the most voice inflection when saying yes to having intrusive auditory hallucinations that were causing her to be confused, distracted and making it hard to talk.? Clonazepam used to treat anxiety, and for racing thoughts saying benzo's helped her in the past; patient could not elaborate on specifics of racing thoughts saying ?I do not know.? ? Patient denies SI and HI.?.? She did understand that she was treated for heart condition and asked if her heart rate was better and commercial underwriter explained treatment. After a few more days, patient was out of bed dressed in casual clothing; still with speech latency, psychomotor retardation and blunted affect, however auditory hallucinations less intense; Trileptal restarted and titrated until patient was back on her home dose of both Risperdal and Trileptal.? Patient remained with some speech latency and blunted affect though she is speaking more spontaneously, using full sentences and with brighter affect, appropriately smiling.?She reported she feeling better, denied any AH or SI/HI and says confusion has cleared up and that she is mostly back to her normal self. Patient's sister who visited several times reports that patient is indeed back to her baseline and appropriate to return home. Pt is not in imminent risk for harm to self and others and back to baseline, future oriented, in overall good mood, no SI/HI, no AVH. Pt is stable and appropriate for discharge. Time spent discussing smoking cessation with patient: 3 to 10 minutes Status at Discharge Functional status at discharge: independent ambulation Overall status at discharge: patient is back to baseline Time Spent with Patient Time attestation: Total time spent providing and/or coordinating discharge services: Time spent: Less than 30 minutes Discharge Plan Discharge Patient Disposition: Home, Self-Care Discharge Diagnosis: schizoaffective disorder, depressive type Referrals: MITZY PAGE [Other] - 03/07/21 8:45 am (VICKI ARTEAGA IS COVERING. IN OFFICE) Kvng Fuller MD [Physician] - 03/05/21 9:30 am (IN OFFICE) Isidra Santana MD [Physician] - 02/28/21 4:00 pm (Telehealth ) Shereen Carnes MD [Physician] - 03/07/21 3:15 pm ([address] ) Discharge Medications: New diltiazem HCl [Cardizem CD] 120 mg Capsule,Extended Release 24hr 120 mg PO DAILY 30 Days Qty: 30 RF: 0 oxcarbazepine 300 mg Tablet See Rx Instructions .ROUTE .COMPLEX 30 Days Qty: 90 RF: 0 ammonium lactate 12 % Lotion 1 appl topical BID PRN (Reason: Dry Skin) Qty: 0 RF: 0 Continued Eliquis 5 mg Tablet 5 mg PO BID 30 Days Qty: 60 RF: 0 Changed carvedilol 6.25 mg tablet 6.25 mg PO BID 30 Days Qty: 60 RF: 0 trazodone 50 mg tablet 50 mg PO BEDTIME PRN (Reason: insomnia) 30 Days Qty: 30 RF: 0 glipizide 10 mg tablet 10 mg PO DAILY 30 Days Qty: 30 RF: 0 risperidone 2 mg Tablet See Rx Instructions .ROUTE .COMPLEX 30 Days Qty: 90 RF: 0 amlodipine 10 mg tablet 10 mg PO DAILY 30 Days Qty: 30 RF: 0 levothyroxine 50 mcg tablet 50 mcg PO DAILY 30 Days Qty: 30 RF: 0 Discontinued risperidone 4 mg tablet 2 mg PO DAILY RF: 0 risperidone 4 mg tablet 4 mg PO BEDTIME RF: 0 diltiazem HCl [Cardizem CD] 120 mg Capsule,Extended Release 24hr 120 mg PO DAILY Qty: 0 RF: 0 dextrose [Glutose-15] 40 % Gel 15 g PO Q15M PRN (Reason: Per Hypoglycemia Standing Ord.) Qty: 0 RF: 0 dextrose 50 % in water (D50W) Parenteral Solution 25 g IVPUSH Q15M PRN (Reason: Per Hypoglycemia Standing Ord.) Qty: 0 RF: 0 sodium chloride 0.9 % (flush) [BD PosiFlush Normal Saline 0.9] Syringe 3 ml IVFLUSH QSHIFT Qty: 0 RF: 0 insulin lispro [Humalog U-100 Insulin] 100 unit/mL Solution See Protocol unit subcut QIDACHS Qty: 0 RF: 0 Discharge Orders: Discharge Order (Routine); Ordered 02/22/21 Ordered By: Wili Betts Diet: regular diet Activity on Discharge: As tolerated Stand Alone Forms: Patient Portal Discharge page, Community Support Care Plan Goals: Maintain mood and safe behaviors Take medications as prescribed Practice coping skills Continue with outpatient providers and reach out to them as needed Health Concerns: Mood stability and behaviors chronic Kidney Disease Diabetes Hypertension Aflutter Hypothyroid Plan of Treatment: Follow up with your PCP, psychiatric provider and other outpatient providers regarding above concerns Take medications as prescribed Assessment: Risk assessment at time of discharge:? Patient was interviewed prior to discharge and found to be fully oriented and without any SI or HI. Patient has insight and demonstrates good judgment in terms of wanting to pursue treatment. Patient is not in imminent risk of harm to self or others and has a safety plan that includes presenting to the closest ER or calling 911 if feeling unsafe.? Patient has been observed closely by nursing and unit staff throughout admission; patient has not engaged in any behaviors that suggest dangerousness to self or others and has demonstrated appropriate behaviors and impulse control Discharge Date/Time: 02/22/21 13:09
== END 2021-02-22 13:09 | disposition home or self-care (01) | DRG 885 ==
PROVIDERS: Admitting Provider Psychiatry & Neurology Psychiatry; Visit Provider Psychiatry & Neurology Psychiatry
DX: F25.1 Schizoaffective disorder, depressive type (principal); N18.4 Chronic kidney disease, stage 4 (severe); I48.92 Unspecified atrial flutter; I12.9 Hypertensive chronic kidney disease with stage 1 through stage 4 chronic kidney disease, or unspecified chronic kidney disease; E10.22 Type 1 diabetes mellitus with diabetic chronic kidney disease; E03.9 Hypothyroidism, unspecified; E78.5 Hyperlipidemia, unspecified; Z95.0 Presence of cardiac pacemaker; Z87.891 Personal history of nicotine dependence; Z79.01 Long term (current) use of anticoagulants; Z79.890 Hormone replacement therapy; Z79.899 Other long term (current) drug therapy
CPT/HCPCS: 36415; 80048; 80053; 82947; 83036; 85025; 90686; 93005